=== PATIENT | female | born 1940 | race Caucasian/White ===

== ENCOUNTER 2016-11-29 19:56 | Inpatient (IN) ==
[2016-11-29] MEDS ORDERED: *HR* Morphine 2 MG/ML SYRINGE IVP STA (20:02)
--- NOTE | 2016-11-29 20:09 | Emergency Department Note ---
Disposition Clinical Impression: Hip fracture, left Qualifiers: Encounter type: initial encounter Fracture type: closed Qualified Code(s): S72.002A - Fracture of unspecified part of neck of left femur, initial encounter for closed fracture Fall Qualifiers: Encounter type: initial encounter Qualified Code(s): W19.XXXA - Unspecified fall, initial encounter Disposition: Admitted As Inpatient Condition: Fair Referrals: Lynn Garcia MD [Primary Care Provider] - Forms: ED Satisfaction Letter Time of Disposition: 22:45 Fall HPI - General Chief Complaint: ED Fall Stated Complaint: FALL Time Seen by Provider: 11/29/16 20:00 Source: patient Nursing Notes Reviewed: Yes Vital Signs Reviewed: Yes - History of Present Illness HPI Narrative: Mrs. Solis, 68-year-old female, presents from home via EMS after falling in her home. Patient tripped on her dog and fell, landing on her left side on tile floor. She experiences excruciating left hip pain was improved. She is most comfortable with her left leg crossed over her right. She was on the floor partially 45 minutes prior to EMS arrival. She was accompanied throughout the whole time with her daughter. Patient denies loss of consciousness, head trauma , neck pain, or pains anywhere else in her body. Patient is not on any anticoagulants or antiplatelet medications. PMH: Hypertension, hyperlipidemia. ROS: Positive: Left hip pain Negative: Fever, chills, chest pains, palpitations, dyspnea, diaphoresis, back pain, neck pain. - Related Data Allergies Allergy/AdvReac Type Severity Reaction Status Date / Time aspirin [ASA] AdvReac See Verified 08/01/15 10:41 Comments tramadol AdvReac See Verified 08/01/15 10:41 Comments All systems ED: reviewed and negative except as stated. Fall PMH - Past Medical History Medical history: Reports: arthritis, CHF, hyperlipidemia, hypertension Psychiatric history: Reports: anxiety, depression - Social History Smoking Status: Former smoker Alcohol use: Reports: none Drug use: Reports: none Physical Exam Vital Signs Reviewed General: Patient is alert, oriented, and in moderate distress from her left hip pain. HEENT: No facial asymmetry. Head is normocephalic and atraumatic. PERRLA, EOMI. oral mucosa moist. Trachea midline. Cardiovascular: Heart regular rate and rhythm without clicks, rubs, gallops, or murmurs. No JVD. PMI nondisplaced. Respiratory: Symmetric chest rise with good respiratory effort. Bilateral breath sounds are clear without wheezing, crackles, or rhonchi. Abdomen: Bowel sounds present normoactive x-4 quadrants. Abdomen is soft, nondistended, and nontender. No organomegaly noted. Musculoskeletal: No midline spinal tenderness. Tenderness over patient's left greater trochanter. Unable to discern if patient's left leg is shortened and or actually rotated she has her legs crossed at the ankle and refuses to uncross them secondary to pain. Neuro: GCS 15. Sensation light touch intact. Psych: Patient's affect is appropriate for situation. - General Limitations: no limitations General appearance: alert Course Course Narrative: Patient presents after mechanical fall with left hip pain. Cannot clinically discern left hip dislocation versus left hip fracture. Otherwise, patient is asymptomatic for other injuries on HPI and physical exam. X-ray left hip shows intertrochanteric fracture on my reading. Etiology read pending. Patient's pain is mildly controlled with 2 mg of morphine. We will repeat dose. 20:00 After 4 mg of morphine total, patient's pain is starting to return, will provide 50 g fentanyl. Spoke with on-call orthopedist, Dr. Pringle, who agrees to see the patient on consult with hospitalist admission. Hospitalist paged. Discussed the patient with the admitting hospitalist, Dr. Saeed, who has no additional questions or concerns at this time. Vital Signs Temperature 98.2 F 11/29/16 19:58 Pulse Rate 70 11/29/16 19:58 Respiratory Rate 16 11/29/16 19:58 Blood Pressure 160/98 11/29/16 19:58 O2 Sat by Pulse Oximetry 95 11/29/16 19:58 Temperature 98.2 F 11/29/16 19:58 Pulse Rate 67 11/29/16 20:17 Respiratory Rate 14 11/29/16 22:39 Blood Pressure 134/59 11/29/16 22:39 O2 Sat by Pulse Oximetry 96 11/29/16 20:17 Oxygen Delivery Oxygen Delivery Room Air Fall - Lab Data Result diagrams: 11/29/16 20:48 11/29/16 20:48 Lab Results 11/29/16 11/29/16 11/29/16 Range/Units 20:48 20:48 20:48 WBC 8.9 (4.3-11.1) K/mcL RBC 4.69 (3.82-4.97) M/mcL Hgb 13.1 (11.5-15.4) g/dL Hct 42.4 (35.3-44.9) % MCV 90.4 (83.0-100.0) fL MCH 27.9 L (28.0-33.3) pg MCHC 30.9 L (31.6-35.5) g/dL RDW 14.1 (11.5-14.5) % Plt Count 219 (140-400) K/mcL MPV 11.4 (9.4-12.4) fL Immature Gran % 1.0 (0-4) % Seg Neutrophils % 77.2 % Lymphocytes % 13.1 % Monocytes % 7.2 % Eosinophils % 1.2 % Basophils % 0.3 % Neutrophils # 6.9 (1.6-8.9) K/mcL Lymphocytes # 1.2 (0.6-4.6) K/mcL Monocytes # 0.6 (0.0-1.3) K/mcL Eosinophils # 0.1 (0.0-0.6) K/mcL Basophils # 0.0 (0.0-0.2) K/mcL PT 10.3 (9.4-12.1) Seconds INR 1.0 Sodium 138 (136-145) mEq/L Potassium 4.2 (3.5-4.5) mEq/L Chloride 104 (98-109) mEq/L Carbon Dioxide 24 (19-29) mEq/L BUN 19 (7-20) mg/dL Creatinine 1.14 H (0.57-1.11) mg/dL Est GFR ( Amer) 56 L (> 60) Est GFR (Non-Af Amer) 46 L (> 60) BUN/Creatinine Ratio 17 (6-26) Glucose 90 (70-99) mg/dL Calculated Osmolality 288 (280-300) Calcium 9.8 (8.6-10.8) mg/dL
--- NOTE | 2016-11-29 20:24 | Emergency Department Note ---
Disposition Clinical Impression: Hip fracture, left, Fall Disposition: Admitted As Inpatient Condition: Fair General Adult HPI - General Chief complaint: ED Fall Stated complaint: FALL Time Seen by Provider: 11/29/16 20:00 Source: patient Limitations: no limitations - History of Present Illness Pain Scale: 9 - Related Data Allergies Allergy/AdvReac Type Severity Reaction Status Date / Time aspirin [ASA] AdvReac See Verified 08/01/15 10:41 Comments tramadol AdvReac See Verified 08/01/15 10:41 Comments Past Medical History - Past Medical History Medical history: Reports: arthritis, CHF, hyperlipidemia, hypertension Psychiatric history: Reports: anxiety, depression - Social History Smoking Status: Former smoker Smokeless Tobacco Status: No Alcohol use: Reports: none Drug use: Reports: none Physical Exam - General Limitations: no limitations General appearance: alert Course - Reevaluation(s) Reevaluation #1: I saw the patient with resident, Dr. Hurley. Patient presents after a fall because the dog tripped her. She has pain to her left hip. She is lying on the bed with her left leg crossed over her right leg. She says that is her position of comfort. She has pain on axial loading of that left hip joint. My concern is that this could be a dislocation rather than a fracture. We will have to x-ray her. We will get her pain medicines. Disposition will be based on diagnostic results and reevaluation. Time: 20:23 Reevaluation #2: X-ray shows a fracture of the hip without dislocation. Patient will be admitted to the hospital. Time: 21:31 Vital Signs Temperature 98.2 F 11/29/16 19:58 Pulse Rate 70 11/29/16 19:58 Respiratory Rate 16 11/29/16 19:58 Blood Pressure 160/98 11/29/16 19:58 O2 Sat by Pulse Oximetry 95 11/29/16 19:58 Temperature 98.2 F 11/29/16 19:58 Pulse Rate 67 11/29/16 20:17 Respiratory Rate 14 11/29/16 22:39 Blood Pressure 134/59 11/29/16 22:39 O2 Sat by Pulse Oximetry 96 11/29/16 20:17 Oxygen Delivery Oxygen Delivery Room Air Medical Decision Making - Lab Data Result diagrams: 11/29/16 20:48 11/29/16 20:48 Lab Results 0911/29/16 11/29/16 Range/Units 20:48 20:48 20:48 WBC 8.9 (4.3-11.1) K/mcL RBC 4.69 (3.82-4.97) M/mcL Hgb 13.1 (11.5-15.4) g/dL Hct 42.4 (35.3-44.9) % MCV 90.4 (83.0-100.0) fL MCH 27.9 L (28.0-33.3) pg MCHC 30.9 L (31.6-35.5) g/dL RDW 14.1 (11.5-14.5) % Plt Count 219 (140-400) K/mcL MPV 11.4 (9.4-12.4) fL Immature Gran % 1.0 (0-4) % Seg Neutrophils % 77.2 % Lymphocytes % 13.1 % Monocytes % 7.2 % Eosinophils % 1.2 % Basophils % 0.3 % Neutrophils # 6.9 (1.6-8.9) K/mcL Lymphocytes # 1.2 (0.6-4.6) K/mcL Monocytes # 0.6 (0.0-1.3) K/mcL Eosinophils # 0.1 (0.0-0.6) K/mcL Basophils # 0.0 (0.0-0.2) K/mcL PT 10.3 (9.4-12.1) Seconds INR 1.0 Sodium 138 (136-145) mEq/L Potassium 4.2 (3.5-4.5) mEq/L Chloride 104 (98-109) mEq/L Carbon Dioxide 24 (19-29) mEq/L BUN 19 (7-20) mg/dL Creatinine 1.14 H (0.57-1.11) mg/dL Est GFR ( Amer) 56 L (> 60) Est GFR (Non-Af Amer) 46 L (> 60) BUN/Creatinine Ratio 17 (6-26) Glucose 90 (70-99) mg/dL Calculated Osmolality 288 (280-300) Calcium 9.8 (8.6-10.8) mg/dL Attestation Statement - Attestation Attestation: I, Dr. Pierre, examined this patient [id number] and my medical decision- making was reviewed with the Resident Physician, Dr. Nguyen. I agree with the documented findings, disposition and treatment plan as described except to the extent set forth below. Please see my progress notes for details.
[2016-11-29] MEDS ORDERED: *HR* Morphine 2 MG/ML SYRINGE IVP ONE (20:58)
[2016-11-29 21:03] LABS: Basophils % 0.3 %; Eosinophils # 0.1 K/mcL (0.0-0.6); Eosinophils % 1.2 %; Hematocrit 42.4 % (35.3-44.9); Hemoglobin 13.1 g/dL (11.5-15.4); Lymphocytes # 1.2 K/mcL (0.6-4.6); Lymphocytes % 13.1 %; Mean Corpuscular HGB Conc 30.9 g/dL (31.6-35.5); Mean Corpuscular Hemoglobin 27.9 pg (28.0-33.3); Mean Corpuscular Volume 90.4 fL (83.0-100.0); Mean Platelet Volume 11.4 fL (9.4-12.4); Monocytes # 0.6 K/mcL (0.0-1.3); Monocytes % 7.2 %; Neutrophils # 6.9 K/mcL (1.6-8.9); Platelet Count 219 K/mcL (140-400); Red Blood Count 4.69 M/mcL (3.82-4.97); Red Cell Distribution Width 14.1 % (11.5-14.5); Segmented Neutrophils % 77.2 %
[2016-11-29 21:07] LABS: Prothrombin Time 10.3 Seconds (9.4-12.1)
[2016-11-29 21:16] LABS: Calcium 9.8 mg/dL (8.6-10.8); Potassium 4.2 mEq/L (3.5-4.5)
[2016-11-29] MEDS ORDERED: *HR* FentaNYL (PF) 100 MCG/2 ML VIAL IVP ONE (21:55)
--- NOTE | 2016-11-29 22:28 | Internal Med History&Physical ---
Date of Encounter: 11/30/16 Time of Encounter: 22:25 Assessment and Plan (1) Fall Current visit: Yes Status: Acute Mechanical fall as she tripped over her dog. Neurological status is stable. Continue observation. Qualifiers: Encounter type: initial encounter Qualified Code(s): W19.XXXA - Unspecified fall, initial encounter (2) Closed left hip fracture Current visit: Yes Status: Acute Orthopedic is consulted by ER further care as per orthopedic surgery Qualifiers: Encounter type: initial encounter Qualified Code(s): S72.002A - Fracture of unspecified part of neck of left femur, initial encounter for closed fracture (3) Hypertension Current visit: Yes Status: Acute Resume home medication and daily monitoring Qualifiers: Hypertension type: essential hypertension Qualified Code(s): I10 - Essential (primary) hypertension (4) Dyslipidemia Current visit: Yes Status: Acute Resume home medication (5) Chronic kidney disease, stage III (moderate) Current visit: Yes Status: Acute Stage III kidney disease and creatinine is pretty much at her baseline (6) DVT prophylaxis Current visit: Yes Status: Acute DVT prophylaxis per orthopedic surgery. Patient will be on SCDs Internal Medicine - H&P: HPI Chief complaint: Fall Admitted From: Home Plans for Post Hospital Care: Transfer [facility] History of present illness: Mrs. Solis, 68-year-old female, presents from home via EMS after falling in her home. Patient tripped on her dog and fell, landing on her left side on tile floor. She experiences excruciating left hip pain was improved. She is most comfortable with her left leg crossed over her right. She was on the floor partially 45 minutes prior to EMS arrival. She was accompanied throughout the whole time with her daughter. Patient denies loss of consciousness, head trauma , neck pain, or pains anywhere else in her body. She seems to be doing pretty well and neurologically quite stable Past Med Surg Social Fam HX - Past Medical History Medical history: arthritis, CHF, hyperlipidemia, hypertension Psychiatric history: anxiety, depression - Social History Smoking Status: Former smoker Smokeless Tobacco Status: No Alcohol use: none Drug use: none Internal Medicine - H&P: Meds Alendronate Sodium [Fosamax] 70 mg PO QWEEK 11/30/16 [History] BuPROPion [Wellbutrin] 100 mg PO BID 11/30/16 [History] Buspirone HCl [Buspar] 7.5 mg PO DAILY 11/30/16 [History] Buspirone HCl [Buspar] 10 mg PO HS 11/30/16 [History] Furosemide [Lasix] 20 mg PO DAILY 11/30/16 [History] Gabapentin [Neurontin] 300 mg PO BID 11/30/16 [History] Lisinopril [Zestril] 40 mg PO DAILY 11/30/16 [History] Losartan Potassium [Cozaar] 100 mg PO DAILY 11/30/16 [History] Montelukast [Singulair] 10 mg PO HS 11/30/16 [History] PARoxetine HCl [Paroxetine HCl] 40 mg PO HS 11/30/16 [History] Simvastatin [Zocor] 20 mg PO HS 11/30/16 [History] amLODIPine [Norvasc] 5 mg PO DAILY 11/30/16 [History] 3 Allergy/AdvReac Type Severity Reaction Status Date / Time aspirin [ASA] AdvReac See Verified 08/01/15 10:41 Comments tramadol AdvReac See Verified 08/01/15 10:41 Comments All Systems PM: A 10-system review of systems was performed and is negative for pertinent findings except as documented above in the HPI. - Constitutional Constitutional: no chills, no fever(s), no night sweats - EENT Eyes: no change in vision, no discharge, no pain, no photophobia Ears: no ear discharge, no ear pain, no tinnitus Nose, mouth and throat: no dysphagia, no nasal discharge, no neck pain, no sore throat - Cardiovascular Cardiovascular ROS IM: no chest pain, no diaphoresis, no dyspnea, no lightheadedness, no palpitations, no syncope - Respiratory Respiratory: no cough, no dyspnea, no wheezing, no excessive phlegm production - Gastrointestinal Gastrointestinal: no abdominal pain, no diarrhea, no hematemesis, no hematochezia, no melena, no nausea, no vomiting - Genitourinary Genitourinary: no change in urinary stream, no dysuria, no flank pain, no hematuria - Musculoskeletal Musculoskeletal ROS IM: no numbness, no tingling - Integumentary Integumentary IM: no rash, no unusual bruising - Neurological Neurological ROS: no confusion, no convulsions, no focal weakness, no numbness, no tingling, no tremor(s) - Hematologic/Lymphatic Hematologic/Lymphatic: no easy bruising - Constitutional Vitals: Temp Pulse Resp BP Pulse Ox 98.2 F 67 18 144/88 96 11/29/16 19:58 11/29/16 20:17 11/29/16 20:17 11/29/16 20:17 11/29/16 20:17 General appearance: Present: A&O X 3, pleasant, no acute distress, answers questions appropriately - Head Head exam: Present: atraumatic, normocephalic - Eye Eye exam: Present: PERRL, conjuntiva pink, sclera anicteric Pupils: Present: PERRL - Neck Neck exam general surgery: Present: supple, trachea midline. Absent: lymphadenopathy - Respiratory Respiratory exam: Present: CTAB. Absent: accessory muscle use, rales, rhonchi, wheezes - Cardiovascular Cardiovascular exam: Present: RRR, +S1, +S2. Absent: diastolic murmur, gallop, rubs, systolic murmur - GI/Abdominal GI/Abdominal exam: Present: normal bowel sounds, soft, no peritoneal signs. Absent: distended, tenderness - Extremities Exam Extremities exam: Present: warm, radial pulses palpable and symmetrical. Absent : calf tenderness, cyanotic, pedal edema Additional comments: Left hip examination per orthopedics - Neurological Exam Neurological exam: Present: CN II-XII intact, oriented X3, no focal deficits. Absent: pronater drift, facial droop, speech deficit - Skin Skin exam: Present: dry, intact Internal Med - H&P Results - Labs CBC & Chem 7: 11/29/16 20:48 11/29/16 20:48
[2016-11-29] MEDS ORDERED: Acetaminophen 325 MG TABLET PO PRN (22:31)
[2016-11-29] MEDS ORDERED: Ondansetron 4 MG/2 ML VIAL IVP PRN (22:31)
[2016-11-29] MEDS ORDERED: MOM Conc 10 ML UD.LIQ PO PRN (22:31)
[2016-11-29] MEDS ORDERED: Naloxone 0.4 MG/ML INJ IVP PRN (22:31)
[2016-11-29] MEDS ORDERED: *HR* Morphine 2 MG/ML SYRINGE IVP PRN (22:31)
[2016-11-29] MEDS: 0.9 % Sodium Chloride 1,000 ML IVC SCH (23:56)
[2016-11-30] MEDS: *HR* HYDROmorphone (PF) 1 MG/ML SYRINGE IVP PRN ×5 (03:34→20:36)
[2016-11-30 07:12] LABS: Basophils % 0.3 %; Eosinophils # 0.1 K/mcL (0.0-0.6); Eosinophils % 0.9 %; Hematocrit 37.1 % (35.3-44.9); Immature Granulocytes % 0.4 % (0-4); Lymphocytes # 1.2 K/mcL (0.6-4.6); Lymphocytes % 10.2 %; Mean Corpuscular HGB Conc 30.7 g/dL (31.6-35.5); Mean Corpuscular Hemoglobin 28.1 pg (28.0-33.3); Mean Corpuscular Volume 91.6 fL (83.0-100.0); Mean Platelet Volume 11.8 fL (9.4-12.4); Monocytes # 0.9 K/mcL (0.0-1.3); Monocytes % 7.8 %; Platelet Count 189 K/mcL (140-400); Red Blood Count 4.05 M/mcL (3.82-4.97); Red Cell Distribution Width 14.1 % (11.5-14.5); Segmented Neutrophils % 80.4 %
[2016-11-30 07:16] LABS: BUN/Creatinine Ratio 20 (6-26); Blood Urea Nitrogen 19 mg/dL (7-20); Calcium 9.1 mg/dL (8.6-10.8); Carbon Dioxide 27 mEq/L (19-29); Chloride 105 mEq/L (98-109); Glucose 93 mg/dL (70-99); Osmolality,Calculated 292 (280-300); Potassium 4.2 mEq/L (3.5-4.5); Sodium 140 mEq/L (136-145); eGFR For African Americans > 60 (> 60); eGFR For Non-African Americans 56 (> 60)
[2016-11-30 08:00] LABS: Hemoglobin 11.4 g/dL (11.5-15.4)
--- NOTE | 2016-11-30 08:52 | Internal Med Progress Note ---
<Norberto El - Last Filed: 11/30/16 11:01> Date of Encounter: 11/30/16 Time of Encounter: 08:52 - Assessment and plan (1) Femur fracture, left Current Visit: Yes Status: Acute Assessment and plan: Patient sustained a fall onto left hip yesterday evening. Hip x-ray revealed acute traumatic closed intertrochanteric left proximal femur fracture, not significantly displaced. Exam reveals neuro and vascularly intact. Vitals reviewed and stable. Continue with pain medications: dilaudid 1mg q3h prn Orthopedic evaluation pending. Update, patient not getting surgery today, will start cardiac diet, npo after midnight. Qualifiers: Encounter type: initial encounter Femur location: intertrochanteric Fracture type: closed Fracture alignment: nondisplaced Qualified Code(s): S72.145A - Nondisplaced intertrochanteric fracture of left femur, initial encounter for closed fracture (2) Hypertension Current Visit: Yes Status: Acute Assessment and plan: Known history of hypertension. Bp 124/77, rate 63 Hold home medications for chronic disease management, was not on a beta milton at home. Continue monitoring vitals. Qualifiers: Hypertension type: essential hypertension Qualified Code(s): I10 - Essential (primary) hypertension (3) Dyslipidemia Current Visit: Yes Status: Acute Assessment and plan: Known history of hyperlipidemia. Hold home medications for chronic disease management. (4) Chronic kidney disease, stage III (moderate) Current Visit: Yes Status: Acute Assessment and plan: Known history of CKD stage III, Cr 0.96 on arrival. Continue monitoring labs. Continue IV fluids at 75mL/hr. (5) DVT prophylaxis Current Visit: Yes Status: Acute Assessment and plan: Continue IPCDs, Additional recommendations per Orthopedic Surgery. - Subjective Interval history: Ms. Solis is a 76 year old female who was admitted yesterday evening after sustaining a fall on her Left side after tripping over her dog. Patient was determined to have a Left proximal femur fracture on hip x-ray. Patient is doing okay this morning and appears in no acute distress. Patient reports pain does get up to a 10/10 at times, but pain medication has helped significantly. Patient has had surgeries by Dr. Atkinson in the past and is requesting Dr. Atkinson. Upon talking with nurses, they are following through to determine if this is feasible. Patient denies fevers, chills, sweats, nausea, vomiting, chest pain, shortness of breath, abdominal pain, changes in bowels or bladder, or loss of sensation. - Constitutional Vitals: Temp Pulse Resp BP Pulse Ox 97.6 F 63 16 124/77 96 11/30/16 06:48 11/30/16 06:48 11/30/16 06:48 11/30/16 06:48 11/30/16 06:48 General appearance: Present: cooperative, A&O X 3, pleasant, no acute distress, answers questions appropriately - Head Head exam: Present: atraumatic, normal inspection, normocephalic - Eye Eye exam: Present: EOMI, normal appearance - ENT ENT exam: Present: mucous membranes moist, normal exam - Neck Neck exam general surgery: Present: full ROM, normal inspection, supple, trachea midline. Absent: tenderness - Respiratory Respiratory exam: Present: CTAB. Absent: rales, rhonchi, wheezes - Cardiovascular Cardiovascular exam: Present: RRR, +S1, +S2. Absent: diastolic murmur, systolic murmur - GI/Abdominal GI/Abdominal exam: Present: normal bowel sounds, soft. Absent: distended, guarding, tenderness - Extremities Exam Extremities exam: Present: warm, radial pulses palpable and symmetrical. Absent : cyanotic Additional comments: Left lower extremity externally rotated and possibly shortened to right side, but patient unwilling to fully extended left knee. Pulses 2/4 bilaterally, normal sensation bilaterally. - Neurological Exam Neurological exam: Present: alert, oriented X3. Absent: facial droop, speech deficit - Psychiatric Psychiatric exam: Present: normal affect, normal mood - Skin Skin exam: Present: dry, intact, normal color, warm. Absent: rash Internal Medicine: Result - Labs CBC & Chem 7: 11/30/16 05:38 11/30/16 05:38 Labs: Short CBC 11/30/16 Range/Units 05:38 WBC 11.3 H (4.3-11.1) K/mcL Hgb 11.4 L D (11.5-15.4) g/dL Hct 37.1 (35.3-44.9) % Plt Count 189 (140-400) K/mcL Neutrophils # 9.0 H (1.6-8.9) K/mcL BMP 11/30/16 05:38 Sodium 140 Potassium 4.2 Chloride 105 Carbon Dioxide 27 BUN 19 Creatinine 0.96 Glucose 93 Calcium 9.1 - ABG Interpretation ABG results: PT/INR, D-dimer PT 10.3 Seconds (9.4-12.1) 11/29/16 20:48 Consult Discharge Plan - Plan Referrals: Lynn Garcia MD [Primary Care Provider] - <José Bose - Last Filed: 11/30/16 12:44> Date of Encounter: 11/30/16 - Constitutional Vitals: Temp Pulse Resp BP Pulse Ox 97.8 F 70 18 124/68 95 11/30/16 11:19 11/30/16 11:19 11/30/16 11:19 11/30/16 11:19 11/30/16 11:19 Internal Medicine: Result - Labs CBC & Chem 7: 11/30/16 05:38 11/30/16 05:38 Labs: Short CBC 11/30/16 Range/Units 05:38 WBC 11.3 H (4.3-11.1) K/mcL Hgb 11.4 L D (11.5-15.4) g/dL Hct 37.1 (35.3-44.9) % Plt Count 189 (140-400) K/mcL Neutrophils # 9.0 H (1.6-8.9) K/mcL BMP 11/30/16 05:38 Sodium 140 Potassium 4.2 Chloride 105 Carbon Dioxide 27 BUN 19 Creatinine 0.96 Glucose 93 Calcium 9.1 - ABG Interpretation ABG results: PT/INR, D-dimer PT 10.3 Seconds (9.4-12.1) 11/29/16 20:48 - Attending Attestation I have independently seen and examined this patient on 11/30/16, reviewed the EMR and discussed plan of care with the patient and resident physician 76 F with PMH of HTN, HLD, CHFpEF-euvolemic, CKD III admitted and being managed for Left proximal intertrochanteric fracture following a mechanical fall Aside from pain, she had no complains Physical Exam: VSS, not in distress, speaks full sentences, HEENT: Moist oral mucosa, not cyanotic. Chest: CTAB, no added sounds, Heart S1, S2 no m/g/r, Abdomen is soft and not tender. LLE shorter and externally rotated Labs and Imaging reviewed: CBC WNL, Chem-Cr at baseline, Hip Xary confirms fracture. ECHO 2014-Mild LVDD, Nuclear stress test 05/2016: No ischemia Plan: Continue pain control, resume hold meds, hold ACEI/ARB/Diuretics, continue management of fracture per ortho Rest of details as in resident physician's documentation
--- NOTE | 2016-11-30 11:49 | Orthopedic Consult Note ---
Date of Encounter: 11/30/16 Time of Encounter: 11:47 Assessment and Plan (1) Closed left hip fracture Current Visit: Yes Status: Acute Plan for Left Hip Open reduction and intramedullary nailing 12/01/16. Plan discussed and reviewed with . Consent reviewed with patient, signed. NPO after midnight. NWB, bed rest. Ruiz catheter in place. Continue with EPCD use, DVT prophylaxis. Cleared for surgery. Qualifiers: Encounter type: initial encounter Qualified Code(s): S72.002A - Fracture of unspecified part of neck of left femur, initial encounter for closed fracture (2) Fall Current Visit: Yes Status: Acute Qualifiers: Encounter type: initial encounter Qualified Code(s): W19.XXXA - Unspecified fall, initial encounter (3) Hypertension Current Visit: Yes Status: Acute Qualifiers: Hypertension type: essential hypertension Qualified Code(s): I10 - Essential (primary) hypertension (4) Dyslipidemia Current Visit: Yes Status: Acute (5) Chronic kidney disease, stage III (moderate) Current Visit: Yes Status: Acute History of Present Illness Chief complaint: Fall HPI: Ms. Solis is a 76 year old female presents from home 11/29/16 via EMS after falling in her home. Patient tripped on her dog and fell, landing on her left side on tile floor. She experiences excruciating left hip pain. Difficulty with pain control, on Dilaudid. In bed currently. Pain is in Left hip, denies N/T or radiation of pain into lower leg. Unable to ambulate secondary to pain. She has was ambulatory prior to fall. Ruiz catheter in place. Denies history of trauma or injury prior to fall. FINDINGS: Acute traumatic closed intertrochanteric left proximal femur fracture is present. The fracture not significantly displaced. The hip joints are maintained. Postoperative changes in the lumbar spine. The pelvis is grossly intact. XR/XR hip complete LT IMPRESSION: Intertrochanteric left proximal femur fracture. Patient denies loss of consciousness, head trauma, neck pain, or pains anywhere else in her body. Past Med Surg Social Fam HX - Past Medical History Medical history: arthritis, CHF, hyperlipidemia, hypertension Psychiatric history: anxiety, depression - Past Surgical History Surgical History: knee replacement, orthopedic, other - Social History Smoking Status: Former smoker Smokeless Tobacco Status: No Alcohol use: none Drug use: none Medications and Allergies Alendronate Sodium [Fosamax] 70 mg PO QWEEK 11/30/16 [History] BuPROPion SR (12 HR) [Wellbutrin SR] 150 mg PO BID 11/30/16 [History] Buspirone HCl [Buspar] 7.5 mg PO DAILY 11/30/16 [History] Buspirone HCl [Buspar] 10 mg PO HS 11/30/16 [History] Furosemide [Lasix] 20 mg PO DAILY 11/30/16 [History] Gabapentin [Neurontin] 300 mg PO BID 11/30/16 [History] HYDROcodone/Acet 5/325 mg [[place] 5-325 mg] 1 tab PO Q6H PRN 11/30/16 [History] Lisinopril [Zestril] 40 mg PO DAILY 11/30/16 [History] Losartan Potassium [Cozaar] 100 mg PO DAILY 11/30/16 [History] Montelukast [Singulair] 10 mg PO HS 11/30/16 [History] PARoxetine HCl [Paroxetine HCl] 40 mg PO HS 11/30/16 [History] Simvastatin [Zocor] 20 mg PO HS 11/30/16 [History] amLODIPine [Norvasc] 5 mg PO DAILY 11/30/16 [History] 3 Allergy/AdvReac Type Severity Reaction Status Date / Time aspirin [ASA] AdvReac See Verified 08/01/15 10:41 Comments tramadol AdvReac See Verified 08/01/15 10:41 Comments All Systems Reviewed: A 10-system review of systems was performed and is negative for pertinent findings except as documented above in the HPI. - Constitutional Constitutional: as per HPI - Cardiovascular Cardiovascular: as per HPI - Respiratory Respiratory: as per HPI - Musculoskeletal Musculoskeletal: as per HPI Physical Exam - Constitutional Vitals: Temp Pulse Resp BP Pulse Ox 97.8 F 70 18 124/68 95 11/30/16 11:19 11/30/16 11:19 11/30/16 11:19 11/30/16 11:19 11/30/16 11:19 - Fracture left hip Appearance: swelling, other (shortened and ER LLE) Compartments: soft Distal extremity neurovascularly intact: Yes Proximal joint involvement: No Distal joint involvement: No Results - Labs Result Diagrams: 11/30/16 05:38 11/30/16 05:38 Labs: Abnormal lab results WBC 11.3 K/mcL (4.3-11.1) H 11/30/16 05:38 Hgb 11.4 g/dL (11.5-15.4) L D 11/30/16 05:38 MCHC 30.7 g/dL (31.6-35.5) L 11/30/16 05:38 Neutrophils # 9.0 K/mcL (1.6-8.9) H 11/30/16 05:38 Est GFR (Non-Af Amer) 56 (> 60) L 11/30/16 05:38 H & H 11/30/16 Range/Units 05:38 Hgb 11.4 L D (11.5-15.4) g/dL Hct 37.1 (35.3-44.9) % All other labs normal. - Diagnostic results Hip x-ray: report reviewed, image reviewed Consult Discharge Plan - Plan Referrals: Lynn Garcia MD [Primary Care Provider] -
[2016-11-30] MEDS: 0.9 % Sodium Chloride 1,000 ML IVC SCH (13:44)
--- NOTE | 2016-11-30 19:21 | Anesthesia Evaluation PreOp ---
Date of Encounter: 11/30/16 Time of Encounter: 19:05 - Past History Planned Operation: Left Hip ORIF IM Nailing Cardiac History: HTN, Hyperlipidemia Pulmonary History: Denies Any Significant HX MEDICAL OPERATIONS SUPERVISOR History: Denies Any Significant HX Other Medical History: Renal (CKD), Other (Anxiety Depression) Anesthesia History: No Prior Anesthetic Complications : No Alcohol Use: none Drug use: none Medications and Allergies Alendronate Sodium [Fosamax] 70 mg PO QWEEK 11/30/16 [History] BuPROPion SR (12 HR) [Wellbutrin SR] 150 mg PO BID 11/30/16 [History] Buspirone HCl [Buspar] 7.5 mg PO DAILY 11/30/16 [History] Buspirone HCl [Buspar] 10 mg PO HS 11/30/16 [History] Furosemide [Lasix] 20 mg PO DAILY 11/30/16 [History] Gabapentin [Neurontin] 300 mg PO BID 11/30/16 [History] HYDROcodone/Acet 5/325 mg [[place] 5-325 mg] 1 tab PO Q6H PRN 11/30/16 [History] Lisinopril [Zestril] 40 mg PO DAILY 11/30/16 [History] Losartan Potassium [Cozaar] 100 mg PO DAILY 11/30/16 [History] Montelukast [Singulair] 10 mg PO HS 11/30/16 [History] PARoxetine HCl [Paroxetine HCl] 40 mg PO HS 11/30/16 [History] Simvastatin [Zocor] 20 mg PO HS 11/30/16 [History] amLODIPine [Norvasc] 5 mg PO DAILY 11/30/16 [History] 3 Allergy/AdvReac Type Severity Reaction Status Date / Time aspirin [ASA] AdvReac See Verified 08/01/15 10:41 Comments tramadol AdvReac See Verified 08/01/15 10:41 Comments - Meds/Allergy Pre-op Review Medications Reviewed: Yes Allergies Reviewed: Yes Beta Blockers on Current Med List: No Anesthesia Results - Labs 11/30/16 05:38 11/30/16 05:38 Laboratory Tests 07/11/14 11/29/16 11/30/16 15:56 20:48 05:38 Hgb 11.4 L D Hct 37.1 Plt Count 189 PT 10.3 PTT 31.5 INR 1.0 Sodium Potassium BUN Creatinine 11/30/16 05:38 Hgb Hct Plt Count PT PTT INR Sodium 140 Potassium 4.2 BUN 19 Creatinine 0.96 - Imaging EKG: report reviewed (SR) Additional studies: ECHO 2014 LVEF 60%, Stress Test 2017 Negative for Ischemia EF>70% Anesthesia Exam O2 Sat Height 1.52 m Weight 72.5 kg Weight 69.853 kg O2 Sat by Pulse Oximetry 94 O2 Sat by Pulse Oximetry 95 O2 Sat by Pulse Oximetry 96 O2 Sat by Pulse Oximetry 97 O2 Sat by Pulse Oximetry 94 O2 Sat by Pulse Oximetry 96 O2 Sat by Pulse Oximetry 95 Vital Signs Temp Pulse Resp BP Pulse Ox 98.2 F 70 16 160/98 95 11/29/16 19:58 11/29/16 19:58 11/29/16 19:58 11/29/16 19:58 11/29/16 19:58 Height: 5'0 Weight: 159 lbs NPO (# of Hours): MN Pain Scale: 0 - HEENT Pupil (Motor): Pupils equal, EOMI Mallampati: III Denture Type: Upper: Complete Oral Opening: Less than or equal to 3 - MEDICAL OPERATIONS SUPERVISOR LOC: Oriented MEDICAL OPERATIONS SUPERVISOR Motor: Normal RUE, Normal LUE, Normal RLE, Normal LLE, Normal Face MEDICAL OPERATIONS SUPERVISOR Sensory: Normal: RUE, LUE, RLE, LLE, Face - Cardiac Rhythm: Regular Murmur: None JVD: No Carotid Bruit: No - Pulmonary Breath Sounds: bilateral Clear Respiratory Effort: Symmetrical Anesthesia Assess/Plan ASA Score: 3 (HTN CKD) Modified Allie Scale for Level of Consciousness: Cooperative, oriented, and tranquil Anesthetic Plan: General Monitoring Plan: Standard Monitors Recovery Plan: PACU (Discussed GA versus RA, patient wants GA, agrees to proceed )
[2016-11-30] MEDS ORDERED: Acetaminophen 325 MG TABLET PO ONE (19:44)
[2016-11-30] MEDS: Gabapentin 300 MG CAPSULE PO SCH (19:54)
[2016-11-30] MEDS: BuPROPion SR (12 HR) 150 MG TABLET PO SCH (19:54)
[2016-12-01] MEDS: *HR* HYDROmorphone (PF) 1 MG/ML SYRINGE IVP PRN ×4 (01:11→11:44)
[2016-12-01] MEDS: 0.9 % Sodium Chloride 1,000 ML IVC SCH (01:18)
[2016-12-01 05:46] LABS: Prothrombin Time 11.2 Seconds (9.4-12.1)
[2016-12-01 05:48] LABS: Basophils % 0.3 %; Eosinophils # 0.3 K/mcL (0.0-0.6); Eosinophils % 3.2 %; Hematocrit 37.2 % (35.3-44.9); Hemoglobin 11.4 g/dL (11.5-15.4); Immature Granulocytes % 0.2 % (0-4); Lymphocytes % 11.6 %; Mean Corpuscular HGB Conc 30.6 g/dL (31.6-35.5); Mean Corpuscular Hemoglobin 28.6 pg (28.0-33.3); Mean Corpuscular Volume 93.2 fL (83.0-100.0); Mean Platelet Volume 11.3 fL (9.4-12.4); Monocytes # 0.9 K/mcL (0.0-1.3); Monocytes % 10.4 %; Neutrophils # 6.5 K/mcL (1.6-8.9); Platelet Count 145 K/mcL (140-400); Red Blood Count 3.99 M/mcL (3.82-4.97); Red Cell Distribution Width 13.9 % (11.5-14.5); Segmented Neutrophils % 74.3 %
[2016-12-01 05:49] LABS: Activated Partial Thrombo Time 28.5 Seconds (26.0-36.0)
[2016-12-01 05:57] LABS: BUN/Creatinine Ratio 15 (6-26); Blood Urea Nitrogen 13 mg/dL (7-20); Calcium 9.1 mg/dL (8.6-10.8); Carbon Dioxide 27 mEq/L (19-29); Chloride 105 mEq/L (98-109); Glucose 101 mg/dL (70-99); Osmolality,Calculated 284 (280-300); Potassium 3.8 mEq/L (3.5-4.5); Sodium 137 mEq/L (136-145); eGFR For African Americans > 60 (> 60); eGFR For Non-African Americans > 60 (> 60)
[2016-12-01] MEDS: Gabapentin 300 MG CAPSULE PO SCH ×2 (08:41→20:59)
[2016-12-01] MEDS: BuPROPion SR (12 HR) 150 MG TABLET PO SCH ×2 (08:41→20:59)
[2016-12-01] MEDS ORDERED: amLODIPine 5 MG TABLET PO SCH (09:00)
--- NOTE | 2016-12-01 09:03 | Internal Med Progress Note ---
<Norberto El - Last Filed: 12/01/16 12:17> Date of Encounter: 12/01/16 Time of Encounter: 09:02 - Assessment and plan (1) Femur fracture, left Current Visit: Yes Status: Acute Assessment and plan: Patient sustained a fall onto left hip Tuesday evening. Hip x-ray revealed acute traumatic closed intertrochanteric left proximal femur fracture, not significantly displaced. Exam reveals neuro and vascularly intact. Vitals reviewed and stable. Continue with pain medications: dilaudid 1mg q3h prn Plan for surgery today. Qualifiers: Encounter type: initial encounter Femur location: intertrochanteric Fracture type: closed Fracture alignment: nondisplaced Qualified Code(s): S72.145A - Nondisplaced intertrochanteric fracture of left femur, initial encounter for closed fracture (2) Hypertension Current Visit: Yes Status: Acute Assessment and plan: Known history of hypertension. Bp 146/76, rate 87 Hold home medications for chronic disease management, was not on a beta milton at home. Continue monitoring vitals. Qualifiers: Hypertension type: essential hypertension Qualified Code(s): I10 - Essential (primary) hypertension (3) Dyslipidemia Current Visit: Yes Status: Acute Assessment and plan: Known history of hyperlipidemia. Hold home medications for chronic disease management. (4) Chronic kidney disease, stage III (moderate) Current Visit: Yes Status: Acute Assessment and plan: Known history of CKD stage III, Cr 0.87. Continue monitoring labs. Continue IV fluids at 75mL/hr. (5) DVT prophylaxis Current Visit: Yes Status: Acute Assessment and plan: Continue IPCDs, Additional recommendations per Orthopedic Surgery. - Subjective Interval history: Patient reports doing well overnight, she appears comfortable in bed; however, currently reports pain of 9/10 just before pain medication administration. Denies fevers, chills, sweats, nausea, vomiting, dysphagia, changes in appetite , chest pain, shortness of breath, abdominal pain, changes in bladder, dysuria, or loss of sensation. Patient does report no bowel movement since admissions. Plan for surgery with Dr. Atkinson later today. - Constitutional Vitals: Temp Pulse Resp BP Pulse Ox 98.9 F 87 17 146/76 95 12/01/16 06:45 12/01/16 06:45 12/01/16 06:45 12/01/16 06:45 12/01/16 06:45 General appearance: Present: cooperative, A&O X 3, pleasant, no acute distress, answers questions appropriately - Head Head exam: Present: atraumatic, normal inspection, normocephalic - Eye Eye exam: Present: EOMI, normal appearance - ENT ENT exam: Present: mucous membranes moist, normal exam, normal oropharynx - Neck Neck exam general surgery: Present: full ROM, normal inspection, supple, trachea midline. Absent: tenderness - Respiratory Respiratory exam: Present: CTAB. Absent: rales, rhonchi, wheezes - Cardiovascular Cardiovascular exam: Present: RRR, +S1, +S2. Absent: diastolic murmur, JVD, systolic murmur - GI/Abdominal GI/Abdominal exam: Present: normal bowel sounds, soft. Absent: distended, guarding, tenderness - Additional comments: rodrigues in place, clear yellow urine. - Extremities Exam Extremities exam: Present: warm, radial pulses palpable and symmetrical. Absent : pedal edema Additional comments: Left lower extremity externally rotated and mildly shortened compared to right, normal sensation bilaterally, pulses 2/4 bilaterally, moves toes bilaterally when prompted. - Neurological Exam Neurological exam: Present: alert, oriented X3. Absent: facial droop, speech deficit - Psychiatric Psychiatric exam: Present: normal affect, normal mood - Skin Skin exam: Present: dry, intact, normal color, warm. Absent: rash Internal Medicine: Result - Labs CBC & Chem 7: 12/01/16 05:29 12/01/16 05:29 Labs: Short CBC 12/01/16 Range/Units 05:29 WBC 8.7 (4.3-11.1) K/mcL Hgb 11.4 L (11.5-15.4) g/dL Hct 37.2 (35.3-44.9) % Plt Count 145 (140-400) K/mcL Neutrophils # 6.5 (1.6-8.9) K/mcL BMP 12/01/16 05:29 Sodium 137 Potassium 3.8 Chloride 105 Carbon Dioxide 27 BUN 13 Creatinine 0.87 Glucose 101 H Calcium 9.1 - ABG Interpretation ABG results: PT/INR, D-dimer PT 11.2 Seconds (9.4-12.1) 12/01/16 05:29 - VTE Documentation of Mechanical Device: Intermittent pneumatic compression device Consult Discharge Plan - Plan Referrals: Lynn Garcia MD [Primary Care Provider] - <José Bose - Last Filed: 12/01/16 13:33> Date of Encounter: 12/01/16 - Constitutional Vitals: Temp Pulse Resp BP Pulse Ox 99.5 F 86 15 129/70 94 12/01/16 10:28 12/01/16 10:28 12/01/16 10:28 12/01/16 10:28 12/01/16 10:28 Internal Medicine: Result - Labs CBC & Chem 7: 12/01/16 05:29 12/01/16 05:29 Labs: Short CBC 12/01/16 Range/Units 05:29 WBC 8.7 (4.3-11.1) K/mcL Hgb 11.4 L (11.5-15.4) g/dL Hct 37.2 (35.3-44.9) % Plt Count 145 (140-400) K/mcL Neutrophils # 6.5 (1.6-8.9) K/mcL BMP 12/01/16 05:29 Sodium 137 Potassium 3.8 Chloride 105 Carbon Dioxide 27 BUN 13 Creatinine 0.87 Glucose 101 H Calcium 9.1 - ABG Interpretation ABG results: PT/INR, D-dimer PT 11.2 Seconds (9.4-12.1) 12/01/16 05:29 - Attending Attestation I have independently seen and examined this patient on 12/01/16, reviewed the EMR and discussed plan of care with the patient and resident physician 76 F with PMH of HTN, HLD, CHFpEF-euvolemic, CKD III admitted and being managed for Left proximal intertrochanteric fracture following a mechanical fall Aside from pain, she had no complains Awaiting surgery today Physical Exam: VSS, not in distress, speaks full sentences, HEENT: Moist oral mucosa, not cyanotic. Chest: CTAB, no added sounds, Heart S1, S2 no m/g/r, Abdomen is soft and not tender. LLE shorter and externally rotated Labs and Imaging reviewed: CBC WNL, Chem-Cr at baseline, Hip Xary confirms fracture. ECHO 2014-Mild LVDD, Nuclear stress test 05/2016: No ischemia Plan: Continue pain control, resume hold meds, hold ACEI/ARB/Diuretics, continue management of fracture per ortho Resume diuretics/ACEIa.m Rpt Hb a.m Rest of details as in resident physician's documentation
[2016-12-01] MEDS ORDERED: *HR* Propofol 200 MG/20 ML VIAL IVP ONE (12:41)
[2016-12-01] MEDS ORDERED: Dexamethasone 4 MG/ML VIAL ONE (12:41)
[2016-12-01] MEDS ORDERED: *HR* Rocuronium Bromide 50 MG/5 ML VIAL ONE (12:41)
[2016-12-01] MEDS ORDERED: *HR* Succinylcholine 200 MG/10 ML VIAL IVP ONE (12:41)
[2016-12-01] MEDS ORDERED: Ondansetron 4 MG/2 ML VIAL ONE (12:41)
[2016-12-01] MEDS ORDERED: *HR* FentaNYL (PF) 100 MCG/2 ML VIAL ONE (12:41)
[2016-12-01] MEDS ORDERED: Lidocaine -MPF 2% 2 ML VIAL ONE (12:41)
[2016-12-01] MEDS ORDERED: ceFAZolin 2,000 MG in D5% in Water 100 ML IVPB ONE (13:45)
[2016-12-01] MEDS ORDERED: *HR* HYDROmorphone 2 MG/ML SYRINGE ONE (14:15)
--- NOTE | 2016-12-01 14:21 | Orthopedic Operative Note ---
Date of procedure: 12/01/16 Pre-op diagnosis: Left hip fracture intertrochanteric Post-op diagnosis: same Procedure: Procedure: Left hip open reduction intramedullary nail fixation Estimated blood loss: 50 cc Hardware: Metal: 10 mm diameter 130 degree Synthes TFN, helical blade 100, 36 distal locking bolt Operative procedure: The patient was brought to the operating room and placed on the operating room table. After general anesthesia was administered the well leg was place in the well leg mcdonald and the operative leg was placed in the fracture leg mcdonald. All pressure points were padded appropriately. The operative extremity was prepped and draped in the sterile surgical fashion patient received IV antibiotic prior to skin incision. A standard direct lateral approach was made over the entry point of the greater trochanter, the incision was made through the skin and subcutaneous tissue hemostasis was obtained with Bovie cautery. Using careful sharp dissection the fascia was identified and incised, flouroscopic assistance was used to identify the entry point. The guidepin was placed at the entry point using fluroscopic assistance, it was over reamed with the proximal reamer. The nail was placed through the entry hole, across the fracture site into the distal fragment. the position was confirmed with fluroscopy. A guide pin was placed through the proximal locking guide from the lateral femur through the nail across the fracture site into the femoral head, it was over reamed with the reamer. The 100 mm helical blade was placed over the guide pin through the nail into the femoral head, locked in place with the proximal locking bolt. Distal locking bolt was placed through the distal locking guide. The position of hardware and fracture reduction found to be acceptable with fluroscopic assistance. The wound was irrigated. Fascia was closed with a running #2 PDS suture. The deep tissue was irrigated and closed deep with #1 PDS suture superficially with 0 PDS suture and skin was closed with skin coby. The patient was placed in a sterile dressing The patient was extubated and transferred to the recovery room in stable condition. Anesthesia: GETA Surgeon: Shaji Atkinson Condition: stable Disposition: PACU
[2016-12-01] MEDS ORDERED: *HR* HYDROmorphone (PF) 1 MG/ML SYRINGE IVP PRN ×2 (14:29→15:39)
[2016-12-01] MEDS ORDERED: *HR* Promethazine 25 MG/ML VIAL IVP PRN (14:29)
--- NOTE | 2016-12-01 14:38 | Electrocardiograph Report ---
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
--- NOTE | 2016-12-01 14:53 | Anesthesia Evaluation Post Op ---
Date of Encounter: 12/01/16 Time of Encounter: 15:00 - Vital Signs Vital Signs: VSS 147/86/ 78/ Sat 94 on 4L face mask - Airway Airway: Non-obstructed - Cardiovascular Regular Rate - Mental Status Mental Status: Sedated - Nausea Vomiting Nausea Vomiting: Not Present - Hydration Hydration: NPO - Discharge PostOp Status: Transfer Patient to floor (Will be sent to floor once discharge criteria met in approx. 15 min.)
[2016-12-01 15:15] LABS: Hematocrit 38.6 % (35.3-44.9); Hemoglobin 11.4 g/dL (11.5-15.4)
[2016-12-01] MEDS ORDERED: MOM Conc 10 ML UD.LIQ PO PRN (15:39)
[2016-12-01] MEDS ORDERED: Naloxone 0.4 MG/ML INJ IVP PRN (15:39)
[2016-12-01] MEDS ORDERED: Ondansetron 4 MG/2 ML VIAL IVP PRN (15:39)
[2016-12-01] MEDS ORDERED: 0.9 % Sodium Chloride 1,000 ML IVC SCH (15:39)
[2016-12-01] MEDS ORDERED: *HR* OxyCODONE Immed Rel 5 MG TABLET PO PRN (15:39)
[2016-12-01] MEDS ORDERED: Acetaminophen 325 MG TABLET PO PRN (15:39)
[2016-12-01] MEDS: *HR* OxyCODONE Immed Rel 5 MG TABLET PO PRN (19:44)
[2016-12-01] MEDS: ceFAZolin 2,000 MG in D5% in Water 100 ML IVPB SCH (21:04)
[2016-12-01] MEDS ORDERED: Melatonin 3 MG TABLET PO PRN (22:37)
[2016-12-02] MEDS: *HR* OxyCODONE Immed Rel 5 MG TABLET PO PRN ×4 (02:45→20:48)
[2016-12-02] MEDS: ceFAZolin 2,000 MG in D5% in Water 100 ML IVPB SCH (05:18)
[2016-12-02] MEDS: *HR* Enoxaparin 30 MG/0.3 ML SYRINGE SQ SCH (05:18)
--- NOTE | 2016-12-02 06:52 | Orthopedics Progress Note ---
Date of Encounter: 12/02/16 Time of Encounter: 06:52 Subjective Interval history: Patient was seen this morning doing well without complaints. Afebrile vital signs stable. Operative extremity: Neurovascularly intact Dressing clean dry and intact Calves nontender Assessment and plan: Continue with postoperative care Objective Vital signs: Vital Signs Temp Pulse Resp BP Pulse Ox 12/02/16 04:59 97.9 F 86 18 136/74 95 12/02/16 00:55 98.6 F 84 18 130/75 96 12/01/16 19:50 98.3 F 87 16 155/72 97 12/01/16 18:50 98.1 F 84 16 143/80 94 12/01/16 17:50 98.2 F 89 15 143/83 95 12/01/16 16:50 98.1 F 94 14 116/76 93 12/01/16 16:15 98.4 F 94 14 148/80 90 12/01/16 15:55 92 12/01/16 15:39 99.1 F 94 14 154/88 92 12/01/16 15:26 98.9 F 90 14 159/85 93 12/01/16 15:16 98.9 F 90 13 154/82 94 12/01/16 15:06 91 14 157/80 94 12/01/16 14:56 90 13 171/80 95 12/01/16 14:46 98.7 F 86 16 167/86 98 12/01/16 10:28 99.5 F 86 15 129/70 94 Intake and Output 12/01/16 12/01/16 12/02/16 15:59 23:59 07:59 Intake Total 100 / 100 Output Total 515 / 515 950 / 950 Balance -515 / -515 100 / 100 -950 / -950 Intake: IV Fluids 100 / 100 Ancef 2,000 MG In 100 / 100 Dextrose 5% 100 ML @ 200 mls/hr IVPB Q8H [facility] Rx#: [id number] Output: Urine 150 / 150 Estimated Blood Loss 50 / 50 Urine Amount (Catheter) 140 / 140 Catheter 175 / 175 950 / 950 Other: Meal NPO for breakfast - Labs CBC & BMP: 12/01/16 15:07 12/01/16 05:29 Labs: Abnormal lab results Hgb 11.4 g/dL (11.5-15.4) L 12/01/16 15:07 MCHC 30.6 g/dL (31.6-35.5) L 12/01/16 05:29 Glucose 101 mg/dL (70-99) H 12/01/16 05:29 - VTE Documentation of Mechanical Device: Venous foot pump, device Consult Discharge Plan - Plan Referrals: Lynn Garcia MD [Primary Care Provider] -
[2016-12-02] MEDS: BuPROPion SR (12 HR) 150 MG TABLET PO SCH ×2 (08:25→20:48)
[2016-12-02] MEDS: amLODIPine 5 MG TABLET PO SCH (08:26)
[2016-12-02] MEDS: Gabapentin 300 MG CAPSULE PO SCH ×2 (08:26→20:49)
--- NOTE | 2016-12-02 09:03 | Internal Med Progress Note ---
<Norberto El - Last Filed: 12/02/16 11:24> Date of Encounter: 12/02/16 Time of Encounter: 09:03 - Assessment and plan (1) Femur fracture, left Current Visit: Yes Status: Acute Assessment and plan: Patient sustained a fall onto left hip Tuesday evening. Hip x-ray revealed acute traumatic closed intertrochanteric left proximal femur fracture, not significantly displaced. Exam reveals neuro and vascularly intact. Vitals reviewed and stable. POD#1 Left hip open reduction intramedulary internal fixation Continue with pain medications prn Awaiting placement, social work on board. Qualifiers: Encounter type: initial encounter Femur location: intertrochanteric Fracture type: closed Fracture alignment: nondisplaced Qualified Code(s): S72.145A - Nondisplaced intertrochanteric fracture of left femur, initial encounter for closed fracture (2) Hypertension Current Visit: Yes Status: Acute Assessment and plan: Known history of hypertension. Bp 163/84, rate 81 Resume home meds Continue monitoring vitals. Qualifiers: Hypertension type: essential hypertension Qualified Code(s): I10 - Essential (primary) hypertension (3) Dyslipidemia Current Visit: Yes Status: Acute Assessment and plan: Known history of hyperlipidemia. Resume home meds (4) Chronic kidney disease, stage III (moderate) Current Visit: Yes Status: Acute Assessment and plan: Known history of CKD stage III, Cr 0.87 Continue monitoring labs. Stopped IV fluids (5) DVT prophylaxis Current Visit: Yes Status: Acute Assessment and plan: Continue IPCDs, Additional recommendations per Orthopedic Surgery. - Subjective Interval history: Patient reports doing well overnight after surgery, reports pain is well controlled. Denies fevers, chills, sweats, nausea, vomiting, dysphagia, changes in appetite, chest pain, shortness of breath, abdominal pain, changes in bladder, dysuria, or loss of sensation. Patient does report no bowel movement since admissions. Currently awaiting placement. - Constitutional Vitals: Temp Pulse Resp BP Pulse Ox 98.4 F 81 18 163/84 94 12/02/16 08:46 12/02/16 08:46 12/02/16 08:46 12/02/16 08:46 12/02/16 08:46 General appearance: Present: cooperative, A&O X 3, pleasant, no acute distress, answers questions appropriately - Head Head exam: Present: atraumatic, normal inspection, normocephalic - Eye Eye exam: Present: EOMI, normal appearance - ENT ENT exam: Present: mucous membranes moist, normal exam, normal oropharynx - Neck Neck exam general surgery: Present: full ROM, normal inspection, supple, trachea midline. Absent: tenderness - Respiratory Respiratory exam: Present: CTAB. Absent: rales, rhonchi, wheezes - Cardiovascular Cardiovascular exam: Present: RRR, +S1, +S2. Absent: diastolic murmur, JVD, systolic murmur - GI/Abdominal GI/Abdominal exam: Present: normal bowel sounds, soft. Absent: distended, guarding, tenderness - Extremities Exam Extremities exam: Present: full ROM (except left hip, patient is ambulating with assistance), normal inspection, tenderness (left hip), warm, radial pulses palpable and symmetrical. Absent: pedal edema - Neurological Exam Neurological exam: Present: alert, CN II-XII intact, oriented X3, no focal deficits. Absent: motor sensory deficit, facial droop, speech deficit - Psychiatric Psychiatric exam: Present: normal affect, normal mood - Skin Skin exam: Present: dry, intact, normal color, warm. Absent: rash Internal Medicine: Result - Labs CBC & Chem 7: 12/01/16 15:07 12/01/16 05:29 Labs: Short CBC 12/01/16 Range/Units 15:07 Hgb 11.4 L (11.5-15.4) g/dL Hct 38.6 (35.3-44.9) % - ABG Interpretation ABG results: PT/INR, D-dimer PT 11.2 Seconds (9.4-12.1) 12/01/16 05:29 - Impressions Impressions Hip X-Ray 12/01/16 13:48 IMPRESSION: Baseline study, status post ORIF of intertrochanteric fracture of the left hip D/ / 12/01/2016 15:30:33 Dougie Vazquez MD / [facility] Interpreting Provider: Dougie Vazquez MD Fluoroscopy 12/01/16 13:56 IMPRESSION: Intraprocedural fluoroscopic spot images as above. See separate procedure report for more information. D/ / 12/01/2016 14:53:15 Sujit Hidalgo MD / [facility] Interpreting Provider: Sujit Hidalgo MD Hip X-Ray 12/01/16 13:56 IMPRESSION: Intraprocedural fluoroscopic spot images as above. See separate procedure report for more information. D/ / 12/01/2016 14:53:15 Sujit Hidalgo MD / [facility] Interpreting Provider: Sujit Hidalgo MD - VTE Documentation of Mechanical Device: Venous foot pump, device Consult Discharge Plan - Plan Referrals: Lynn Garcia MD [Primary Care Provider] - <José Bose - Last Filed: 12/02/16 14:34> Date of Encounter: 12/02/16 - Constitutional Vitals: Temp Pulse Resp BP Pulse Ox 98.8 F 98 18 110/51 93 12/02/16 11:58 12/02/16 11:58 12/02/16 11:58 12/02/16 11:58 12/02/16 11:58 Internal Medicine: Result - Labs CBC & Chem 7: 12/01/16 15:07 12/01/16 05:29 Labs: Short CBC 12/01/16 Range/Units 15:07 Hgb 11.4 L (11.5-15.4) g/dL Hct 38.6 (35.3-44.9) % - ABG Interpretation ABG results: PT/INR, D-dimer PT 11.2 Seconds (9.4-12.1) 12/01/16 05:29 - Impressions Impressions Hip X-Ray 12/01/16 13:48 IMPRESSION: Baseline study, status post ORIF of intertrochanteric fracture of the left hip D/ / 12/01/2016 15:30:33 Dougie Vazquez MD / [facility] Interpreting Provider: Dougie Vazquez MD Fluoroscopy 12/01/16 13:56 IMPRESSION: Intraprocedural fluoroscopic spot images as above. See separate procedure report for more information. D/ / 12/01/2016 14:53:15 Sujit Hidalgo MD / [facility] Interpreting Provider: Sujit Hidalgo MD Hip X-Ray 12/01/16 13:56 IMPRESSION: Intraprocedural fluoroscopic spot images as above. See separate procedure report for more information. D/ / 12/01/2016 14:53:15 Sujit Hidalgo MD / [facility] Interpreting Provider: Sujit Hidalgo MD - Attending Attestation I have independently seen and examined this patient on 12/02/16, reviewed the EMR and discussed plan of care with the patient and resident physician 76 F with PMH of HTN, HLD, CHFpEF-euvolemic, CKD III admitted and being managed for Left proximal intertrochanteric fracture following a mechanical fall Aside from pain, she had no complains POD 1 s/p L ORIF Physical Exam: VSS, not in distress, speaks full sentences, HEENT: Moist oral mucosa, not cyanotic. Chest: CTAB, no added sounds, Heart S1, S2 no m/g/r, Abdomen is soft and not tender. LLE shorter and externally rotated Labs and Imaging reviewed: CBC WNL, Chem-Cr at baseline, Hip Xary confirms fracture. ECHO 2014-Mild LVDD, Nuclear stress test 05/2016: No ischemia Plan: Stable. PTOT eval. Continue pain control, resume medications Continue other management Rest of details as in resident physician's documentation
[2016-12-02] MEDS ORDERED: *HR* Metoprolol 5 MG/5 ML VIAL IVP ONE (23:19)
[2016-12-03] MEDS: *HR* Enoxaparin 30 MG/0.3 ML SYRINGE SQ SCH (04:25)
[2016-12-03] MEDS: *HR* OxyCODONE Immed Rel 5 MG TABLET PO PRN ×3 (04:25→14:49)
[2016-12-03] MEDS ORDERED: 0.9 % Sodium Chloride 1,000 ML IVC ONE ×2 (07:59→09:37)
--- NOTE | 2016-12-03 08:14 | Orthopedics Progress Note ---
Date of Encounter: 12/03/16 Time of Encounter: 08:14 Subjective Interval history: Patient was seen this morning doing well without complaints. Afebrile vital signs stable. Operative extremity: Neurovascularly intact Dressing clean dry and intact Calves nontender Assessment and plan: Continue with postoperative care Hematocrit 38 orthopedically stable for discharge Objective Vital signs: Vital Signs Temp Pulse Resp BP Pulse Ox 12/03/16 07:15 98.9 F 87 12 122/76 91 12/03/16 04:20 98.0 F 89 16 119/70 94 12/02/16 23:35 98.8 F 125 18 111/74 92 12/02/16 19:21 98.3 F 91 18 121/71 98 12/02/16 15:55 98.6 F 94 18 151/81 93 12/02/16 11:58 98.8 F 98 18 110/51 93 12/02/16 09:04 81 18 163/84 94 12/02/16 08:46 98.4 F 81 18 163/84 94 Intake and Output 12/02/16 12/03/16 12/03/16 23:59 07:59 15:59 Output Total 450 / 450 200 / 200 Balance -450 / -450 -200 / -200 Output: Urine 450 / 450 200 / 200 Other: Meal Dinner Percent of Meal Consumed 50% # Voids 1 Weight 74.2 kg Patient Weight 12/03/16 23:59 Weight 74.2 kg - Labs CBC & BMP: 12/01/16 15:07 12/01/16 05:29 Labs: Abnormal lab results Hgb 11.4 g/dL (11.5-15.4) L 12/01/16 15:07 MCHC 30.6 g/dL (31.6-35.5) L 12/01/16 05:29 Glucose 101 mg/dL (70-99) H 12/01/16 05:29 - VTE Documentation of Mechanical Device: Intermittent pneumatic compression device Consult Discharge Plan - Plan Referrals: Lynn Garcia MD [Primary Care Provider] -
--- NOTE | 2016-12-03 08:18 | Discharge Summary ---
<Norberto El - Last Filed: 12/04/16 09:01> Date of Encounter: 12/04/16 Time of Encounter: 08:18 - Discharge Diagnosis (1) Femur fracture, left Priority: Primary Status: Acute Qualifiers: Encounter type: initial encounter Femur location: intertrochanteric Fracture type: closed Fracture alignment: nondisplaced Qualified Code(s): S72.145A - Nondisplaced intertrochanteric fracture of left femur, initial encounter for closed fracture (2) Hypertension Priority: Secondary Status: Acute Qualifiers: Hypertension type: essential hypertension Qualified Code(s): I10 - Essential (primary) hypertension (3) Dyslipidemia Priority: Secondary Status: Acute (4) Chronic kidney disease, stage III (moderate) Priority: Secondary Status: Acute - Discharge Medications Prescriptions: Albuterol Sulfate [Albuterol Inhaler] 2 puff IH [id number] PRN #1 PRN Reason: Shortness Of Breath/Wheezing HYDROcodone/Acet 5/325 mg [[place] 5-325 mg] 1 tab PO Q6H PRN #12 PRN Reason: Pain Home Medications: Alendronate Sodium [Fosamax] 70 mg PO QWEEK 11/30/16 [History] BuPROPion SR (12 HR) [Wellbutrin SR] 150 mg PO BID 11/30/16 [History] Buspirone HCl [Buspar] 7.5 mg PO DAILY 11/30/16 [History] Buspirone HCl [Buspar] 10 mg PO HS 11/30/16 [History] Furosemide [Lasix] 20 mg PO DAILY 11/30/16 [History] Gabapentin [Neurontin] 300 mg PO BID 11/30/16 [History] Lisinopril [Zestril] 40 mg PO DAILY 11/30/16 [History] Losartan Potassium [Cozaar] 100 mg PO DAILY 11/30/16 [History] Montelukast [Singulair] 10 mg PO HS 11/30/16 [History] PARoxetine HCl [Paroxetine HCl] 40 mg PO HS 11/30/16 [History] Simvastatin [Zocor] 20 mg PO HS 11/30/16 [History] amLODIPine [Norvasc] 5 mg PO DAILY 11/30/16 [History] HYDROcodone/Acet 5/325 mg [[place] 5-325 mg] 1 tab PO Q6H PRN #12 12/03/16 [Rx] Albuterol Sulfate [Albuterol Inhaler] 2 puff IH [id number] PRN #1 12/04/16 [Rx] Allergies/Adverse Reactions: 3 Allergy/AdvReac Type Severity Reaction Status Date / Time aspirin [ASA] AdvReac See Verified 08/01/15 10:41 Comments tramadol AdvReac See Verified 08/01/15 10:41 Comments Procedures/tests Complete & Pending: Procedures Performed prior 72 hours Category Date Time Status CT angio chest [CT] Stat Cat Scan 12/03/16 01:25 Taken Date of admission: 11/29/16 22:16 Primary care physician: Lynn Garcia, Consults: 11/30/16 14:14 Consult to Maintenance Worker Municipal [CONS] Routine Reason for SW Consult: D/C PLANNING 12/01/16 15:39 Consult to Occupational Therapy [CONS] Routine Comment: Evaluate, develop and implement POC Reason for Consult: post hip surgery Consult to Orthopedic Navigator [CONS] [CONS] Routine Consult to Physical Therapy [CONS] Routine Comment: Evaluate, develop and implement POC Reason for Consult: post hip surgery Consult to Maintenance Worker Municipal [CONS] Routine Reason for SW Consult: post -op hip fracture RT Post Op Consult [CONS] Routine Discharging clinician: José Bose ([facility]) Anticipated date of discharge: 12/04/16 - Patient Status Disposition: Transfer Inpatient Rehab Fac Condition: Good Functional capacity at discharge: uses cane/walker Overall status at discharge: patient is progressing back to baseline - Discharge Instructions Follow Up With: Lynn Garcia MD [Primary Care Provider] - Forms: ED Satisfaction Letter - Diet and Activity Activity: ambulate only with your walker, as per physical therapy Diet: low fat, low cholesterol, low salt diet, other (renal diet) Interval History: Patient did well overnight without complaints. She feels a little wheezy this morning, previously used her albuterol inhaler at home, but hasn't been receiving any here. She denies fevers, chills, sweats, nausea, vomiting, dysphagia, changes in appetite, chest pain, shortness of breath, abdominal pain , changes in bladder, dysuria, or loss of sensation. Cr 0.77 this morning. To be discharged to [facility]. Hospital course: Ms. Solis is a 76 year old female with history of hypertension, hyperlipidemia, and chonic kidney disease stage III who presented to the ED via EMS on 11/29/16 after sustaining a fall tripping over her dog and falling onto her left side. Patient reported left hip pain and was determined to have acute traumatic intertrochanteric left proximal femur fracture on hip xray. Patient was evaluated by Orthopedic surgery and underwent Left hip open reduction and intramedullary nailing on 12/01/16. Patient did well without complications and labs and vitals were monitored post op. On 12/02/16 evening, the patient developed some tachycardia in 120s. EKG was negative for acute changes, Troponins were negative, and CTA was negative for PE. Patient was otherwise doing well and had placement to [facility] for rehab; however, due to administration of contrast overnight and history of CKD stage III, the patient was held overnight to monitor for possibility of contrast induced nephropathy, morning Cr 0.77. Patient was discharged to SNF on 12/04/16 and to follow up with PCP and Orthopedic Surgery after rehab discharge. - Time Spent with Patient Total time spent providing and/or coordinating discharge services: - Constitutional Vitals: Temp Pulse Resp BP Pulse Ox 98.9 F 87 12 122/76 91 12/03/16 07:15 12/03/16 07:15 12/03/16 07:15 12/03/16 07:15 12/03/16 07:15 General appearance: Present: cooperative, A&O X 3, pleasant, no acute distress, answers questions appropriately - Head Head exam: Present: atraumatic, normal inspection, normocephalic - Eye Eye exam: Present: EOMI, normal appearance - ENT ENT exam: Present: mucous membranes moist, normal exam, normal oropharynx - Neck Neck exam general surgery: Present: full ROM, normal inspection, supple, trachea midline. Absent: tenderness - Respiratory Respiratory exam: Present: CTAB. Absent: rales, rhonchi, wheezes - Cardiovascular Cardiovascular exam: Present: RRR, +S1, +S2. Absent: diastolic murmur, irregular rhythm, JVD, systolic murmur - GI/Abdominal GI/Abdominal exam: Present: normal bowel sounds, soft. Absent: distended, guarding, tenderness - Extremities Exam Extremities exam: Present: full ROM, normal inspection, warm, radial pulses palpable and symmetrical. Absent: pedal edema, tenderness - Neurological Exam Neurological exam: Present: alert, CN II-XII intact, oriented X3, no focal deficits, strengths equal and symetr throughout. Absent: facial droop, speech deficit - Psychiatric Psychiatric exam: Present: normal affect, normal mood - Skin Skin exam: Present: dry, intact, normal color, warm. Absent: rash - VTE Documentation of Mechanical Device: Intermittent pneumatic compression device <José Bose - Last Filed: 12/04/16 12:16> Date of Encounter: 12/04/16 - Discharge Diagnosis (1) Atrial flutter Status: Acute Qualifiers: Atrial flutter type: unspecified Qualified Code(s): I48.92 - Unspecified atrial flutter Procedures/tests Complete & Pending: Procedures Performed prior 72 hours Category Date Time Status CT angio chest [CT] Stat Cat Scan 12/03/16 01:25 Completed ECG 12 lead ECG [ECG] Routine Y 12/02/16 23:37 Completed Date of admission: 11/29/16 22:16 Primary care physician: Lynn Garcia, Consults: 11/30/16 14:14 Consult to Maintenance Worker Municipal [CONS] Routine Reason for SW Consult: D/C PLANNING 12/01/16 15:39 Consult to Occupational Therapy [CONS] Routine Comment: Evaluate, develop and implement POC Reason for Consult: post hip surgery Consult to Orthopedic Navigator [CONS] [CONS] Routine Consult to Physical Therapy [CONS] Routine Comment: Evaluate, develop and implement POC Reason for Consult: post hip surgery Consult to Maintenance Worker Municipal [CONS] Routine Reason for SW Consult: post -op hip fracture RT Post Op Consult [CONS] Routine 12/04/16 11:08 Consult to Cardiology [CONS] Routine Comment: Consulting Provider: Cardiology Janet Reason for Consult: newly found aflutter, post op d3 left hip Call Completed: Yes Hospital course: Ms. Solis is a 76 year old female - Time Spent with Patient Total time spent providing and/or coordinating discharge services: - Constitutional Vitals: Temp Pulse Resp BP Pulse Ox 98.6 F 72 17 129/74 94 12/04/16 11:36 12/04/16 11:36 12/04/16 11:36 12/04/16 11:36 12/04/16 11:36 - Attending Attestation Patient is not discharged today, see progress notes for today for details
[2016-12-03] MEDS: Gabapentin 300 MG CAPSULE PO SCH ×2 (08:32→21:07)
[2016-12-03] MEDS: amLODIPine 5 MG TABLET PO SCH (08:32)
[2016-12-03] MEDS: BuPROPion SR (12 HR) 150 MG TABLET PO SCH ×2 (08:33→21:07)
--- NOTE | 2016-12-03 09:22 | Physician Discharge Referral ---
ExtendedCare Referral Info Transfer To: [facility] Provider in Charge: Dr. Bose Provider in Charge after Transfer: PCP - Diagnosis (1) Femur fracture, left Priority: Primary Status: Acute (2) Hypertension Priority: Secondary Status: Acute (3) Dyslipidemia Priority: Secondary Status: Acute (4) Chronic kidney disease, stage III (moderate) Priority: Secondary Status: Acute - Transfer Medications Prescriptions: HYDROcodone/Acet 5/325 mg [[place] 5-325 mg] 1 tab PO Q6H PRN #12 PRN Reason: Pain Home Medications: Alendronate Sodium [Fosamax] 70 mg PO QWEEK 11/30/16 [History] BuPROPion SR (12 HR) [Wellbutrin SR] 150 mg PO BID 11/30/16 [History] Buspirone HCl [Buspar] 7.5 mg PO DAILY 11/30/16 [History] Buspirone HCl [Buspar] 10 mg PO HS 11/30/16 [History] Furosemide [Lasix] 20 mg PO DAILY 11/30/16 [History] Gabapentin [Neurontin] 300 mg PO BID 11/30/16 [History] Lisinopril [Zestril] 40 mg PO DAILY 11/30/16 [History] Losartan Potassium [Cozaar] 100 mg PO DAILY 11/30/16 [History] Montelukast [Singulair] 10 mg PO HS 11/30/16 [History] PARoxetine HCl [Paroxetine HCl] 40 mg PO HS 11/30/16 [History] Simvastatin [Zocor] 20 mg PO HS 11/30/16 [History] amLODIPine [Norvasc] 5 mg PO DAILY 11/30/16 [History] HYDROcodone/Acet 5/325 mg [[place] 5-325 mg] 1 tab PO Q6H PRN #12 12/03/16 [Rx] Allergies/Adverse Reactions: 3 Allergy/AdvReac Type Severity Reaction Status Date / Time aspirin [ASA] AdvReac See Verified 08/01/15 10:41 Comments tramadol AdvReac See Verified 08/01/15 10:41 Comments - Respiratory Orders Smoking Cessation: Smoking cessation has been advised. For more information, call the [place] Tobacco Quit Line at 6-095-RNOB-NOW. - Ancillary Orders May use pressure relief devices daily prn, May go on SAMANTHA w/family/respon democrat w /meds at nurse discretion PRN, May consult with Dentist, Baseball Club Manager, Inspector And Tester PRN - Advance Directives Power of Food Truck Caterer: Yes Code Status: Full Code - Mobility Orders Chair, Ambulate, Other (per PT) - Rehabiliation Orders Rehab Potential: Good Rehab Orders: ROM Exercises, Evaluation for Physical Therapy, Evaluation for Occupational Therapy - Treatments Skin tear care topically daily PRN per policy, May check for fecal impaction rectally daily PRN - Diet Orders No Added Salt (AIDEN), Renal CERTIFICATION: I certify that the transfer of the above named patient to an Extended Care Facility is necessary for the continuing treatment of the diagnosis listed. The above information is true and accurate reflection of patient's current condition. Confidential - Redisclosure prohibited without a patient's written consent.
--- NOTE | 2016-12-03 09:37 | Physician Discharge Referral ---
ExtendedCare Referral Info Transfer To: [facility] Provider in Charge: Dr. Bose Provider in Charge after Transfer: PCP - Diagnosis (1) Femur fracture, left Priority: Primary Status: Acute (2) Hypertension Priority: Secondary Status: Acute (3) Dyslipidemia Priority: Secondary Status: Acute (4) Chronic kidney disease, stage III (moderate) Priority: Secondary Status: Acute - Transfer Medications Prescriptions: HYDROcodone/Acet 5/325 mg [[place] 5-325 mg] 1 tab PO Q6H PRN #12 PRN Reason: Pain Home Medications: Alendronate Sodium [Fosamax] 70 mg PO QWEEK 11/30/16 [History] BuPROPion SR (12 HR) [Wellbutrin SR] 150 mg PO BID 11/30/16 [History] Buspirone HCl [Buspar] 7.5 mg PO DAILY 11/30/16 [History] Buspirone HCl [Buspar] 10 mg PO HS 11/30/16 [History] Furosemide [Lasix] 20 mg PO DAILY 11/30/16 [History] Gabapentin [Neurontin] 300 mg PO BID 11/30/16 [History] Lisinopril [Zestril] 40 mg PO DAILY 11/30/16 [History] Losartan Potassium [Cozaar] 100 mg PO DAILY 11/30/16 [History] Montelukast [Singulair] 10 mg PO HS 11/30/16 [History] PARoxetine HCl [Paroxetine HCl] 40 mg PO HS 11/30/16 [History] Simvastatin [Zocor] 20 mg PO HS 11/30/16 [History] amLODIPine [Norvasc] 5 mg PO DAILY 11/30/16 [History] HYDROcodone/Acet 5/325 mg [[place] 5-325 mg] 1 tab PO Q6H PRN #12 12/03/16 [Rx] Allergies/Adverse Reactions: 3 Allergy/AdvReac Type Severity Reaction Status Date / Time aspirin [ASA] AdvReac See Verified 08/01/15 10:41 Comments tramadol AdvReac See Verified 08/01/15 10:41 Comments - Respiratory Orders Smoking Cessation: Smoking cessation has been advised. For more information, call the [place] Tobacco Quit Line at 8-939-DQYK-NOW. - Lab Orders Lab Orders: Other (include drug levels w/frequency) (BMP daily to monitor for kidney function, watch for Contrast induced nephropathy over next 48-72 hours.) - Ancillary Orders May use pressure relief devices daily prn, May go on SAMANTHA w/family/respon republican w /meds at nurse discretion PRN, May consult with Dentist, Order Manager, Paste Mixer Liquid PRN - Advance Directives Power of Gasket Notcher: Yes Code Status: Full Code - Mobility Orders Chair, Ambulate, Other (per PT recommendations) - Rehabiliation Orders Rehab Potential: Good Rehab Orders: ROM Exercises, Evaluation for Physical Therapy, Evaluation for Occupational Therapy - Treatments Skin tear care topically daily PRN per policy, May check for fecal impaction rectally daily PRN - Diet Orders No Added Salt (AIDEN), Renal CERTIFICATION: I certify that the transfer of the above named patient to an Extended Care Facility is necessary for the continuing treatment of the diagnosis listed. The above information is true and accurate reflection of patient's current condition. Confidential - Redisclosure prohibited without a patient's written consent.
--- NOTE | 2016-12-03 10:02 | Internal Med Progress Note ---
<RicjaydeNorberto gallego - Last Filed: 12/03/16 11:30> Date of Encounter: 12/03/16 Time of Encounter: 10:02 - Assessment and plan (1) Femur fracture, left Current Visit: Yes Status: Acute Assessment and plan: Patient sustained a fall onto left hip Tuesday evening. Hip x-ray revealed acute traumatic closed intertrochanteric left proximal femur fracture, not significantly displaced. Exam reveals neuro and vascularly intact. Vitals reviewed and stable. POD#2 Left hip open reduction intramedulary internal fixation Continue with pain medications prn Patient was approved for [facility]. Due to admin of contrast overnight for workup of tachycardia, patient will stay inpatient and continue to be monitored for possible FORREST. Qualifiers: Encounter type: initial encounter Femur location: intertrochanteric Fracture type: closed Fracture alignment: nondisplaced Qualified Code(s): S72.145A - Nondisplaced intertrochanteric fracture of left femur, initial encounter for closed fracture (2) Hypertension Current Visit: Yes Status: Acute Assessment and plan: Known history of hypertension. Bp 122/76, rate 87 Resume home meds Continue monitoring vitals. Qualifiers: Hypertension type: essential hypertension Qualified Code(s): I10 - Essential (primary) hypertension (3) Dyslipidemia Current Visit: Yes Status: Acute Assessment and plan: Known history of hyperlipidemia. Resume home meds (4) Chronic kidney disease, stage III (moderate) Current Visit: Yes Status: Acute Assessment and plan: Known history of CKD stage III, Cr 0.87 yesterday Continue monitoring labs. Due to admin of contrast overnight for tachycardia workup, patient will stay inpatient to monitor for possible FORREST. Given 1 L normal saline bolus this morning. - Subjective Interval history: Patient reports she had some significant pain overnight, but she also did not request medications. She did develop tachycardia with rate to 125 in the evening for which night resident was contacted. Patient was asymptomatic without chest pain or shortness of breath. Patient had ekg which revealed no changes from prior other than tachycardia, troponin 0.00, and CTA for concern of PE. CTA images reviewed and do not appear to indicate PE. Patient otherwise doing well this morning. Denies fevers, chills, sweats, nausea, vomiting, dysphagia, changes in appetite, chest pain, shortness of breath, abdominal pain, changes in bladder, dysuria, or loss of sensation. Patient does report no bowel movement since admissions. Patient was to be discharged to [facility], however, due to contrast admin to our CKD stage 3 patient, we will continue monitoring kidney function. - Constitutional Vitals: Temp Pulse Resp BP Pulse Ox 98.9 F 87 12 122/76 91 12/03/16 07:15 12/03/16 07:15 12/03/16 07:15 12/03/16 07:15 12/03/16 07:15 General appearance: Present: cooperative, A&O X 3, pleasant, no acute distress, answers questions appropriately - Head Head exam: Present: atraumatic, normal inspection, normocephalic - Eye Eye exam: Present: EOMI, normal appearance - ENT ENT exam: Present: mucous membranes moist, normal exam, normal oropharynx - Neck Neck exam general surgery: Present: full ROM, normal inspection, supple, trachea midline. Absent: tenderness - Respiratory Respiratory exam: Present: CTAB. Absent: decreased breath sounds, rales, respiratory distress, rhonchi, wheezes - Cardiovascular Cardiovascular exam: Present: RRR, +S1, +S2. Absent: diastolic murmur, irregular rhythm, systolic murmur - GI/Abdominal GI/Abdominal exam: Present: normal bowel sounds, soft. Absent: distended, guarding, tenderness - Extremities Exam Extremities exam: Present: normal inspection, tenderness (mild left hip tenderness), warm, radial pulses palpable and symmetrical. Absent: pedal edema - Neurological Exam Neurological exam: Present: alert, CN II-XII intact, oriented X3, no focal deficits, strengths equal and symetr throughout. Absent: motor sensory deficit , facial droop, speech deficit - Psychiatric Psychiatric exam: Present: normal affect, normal mood - Skin Skin exam: Present: dry, intact, normal color, warm. Absent: rash Internal Medicine: Result - Labs CBC & Chem 7: 12/01/16 15:07 12/01/16 05:29 Labs: Cardiac Enzymes 12/03/16 12/03/16 Range/Units 01:47 08:17 Troponin I 0.00 0.00 (0-0.03) ng/mL - ABG Interpretation ABG results: PT/INR, D-dimer PT 11.2 Seconds (9.4-12.1) 12/01/16 05:29 - VTE Documentation of Mechanical Device: Intermittent pneumatic compression device Consult Discharge Plan - Plan Referrals: Lynn Garcia MD [Primary Care Provider] - Prescriptions: HYDROcodone/Acet 5/325 mg [[place] 5-325 mg] 1 tab PO Q6H PRN #12 PRN Reason: Pain <José Bose - Last Filed: 12/03/16 12:14> Date of Encounter: 12/03/16 - Constitutional Vitals: Temp Pulse Resp BP Pulse Ox 98.0 F 85 16 106/71 92 12/03/16 11:33 12/03/16 11:33 12/03/16 11:33 12/03/16 11:33 12/03/16 11:33 Internal Medicine: Result - Labs CBC & Chem 7: 12/01/16 15:07 12/01/16 05:29 Labs: Cardiac Enzymes 12/03/16 12/03/16 Range/Units 01:47 08:17 Troponin I 0.00 0.00 (0-0.03) ng/mL - ABG Interpretation ABG results: PT/INR, D-dimer PT 11.2 Seconds (9.4-12.1) 12/01/16 05:29 - Impressions Impressions Chest CTA 12/03/16 01:25 IMPRESSION: 1. No evidence of a pulmonary embolus. 2. No acute abnormality identified within the lungs. 3. Ectasia of the ascending thoracic aorta measuring 3.9 cm. 4. There is an 8 mm hyperdense lesion within the left kidney, which could represent a hyperdense cyst. Consider further evaluation with renal ultrasound. D/ / Shaji Edwards MD / Shaji Edwards MD Interpreting Provider: hSaji Edwards MD - Attending Attestation I have independently seen and examined this patient on 12/03/16, reviewed the EMR and discussed plan of care with the patient and resident physician 76 F with PMH of HTN, HLD, CHFpEF-euvolemic, CKD III admitted and being managed for Left proximal intertrochanteric fracture following a mechanical fall Aside from pain, she had no complains POD 2 s/p L ORIF Patient denies new complains Overnight, she had an episode of asymptomatic sinus tachycardia. Work up done included EKG-Sinus rhythm, at baseline, Troponin negative X2. CTA-Negative for any acute lesions Physical Exam: VSS, not in distress, speaks full sentences, HEENT: Moist oral mucosa, not cyanotic. Chest: CTAB, no added sounds, Heart S1, S2 no m/g/r, Abdomen is soft and not tender. LLE well perfused distally, no swelling, wound dressing clean and dry Labs and Imaging reviewed: CBC WNL, Chem-Cr at baseline, CTA unremarkable A/P *Sinus tachycardia resolved *L intertrochanteric # s/p ORIF POD 2-stable, continue pain control, has a bed at [facility] *Contrast exposure in CKD-Give IVF and monitor for 48 hrs for FORREST *Other chronic conditions are stable Continue other management Rest of details as in resident physician's documentation
--- NOTE | 2016-12-03 11:40 | Event Note ---
Date of Encounter: 12/03/16 Time of Encounter: 12:25 PCR- POD#2 Left hip ORIF and IM nail 12/01 Dr. Atkinson. PCR - Patient seen at bedside with daughter present. Pain control: Adequate Participating in PT - WBTT. However patient presently on bedrest secondary to other health conditions. All questions and concerns addressed. Educated on use of incentive spirometer, ambulation, and hydration. Patient educated on post-operative restrictions and care. Addressed: see above. D/C plan: [facility] - per hospitalist team. Dressing to be left intact (clean on exam today) until in office follow up with [facility]. Any incision or hip concerns to be addressed by [facility] surgical team. If dressing becomes saturated or comes off - place similar appropriate dressing and notify [facility]. Patient to follow up in office with [facility] in 1-2 weeks with xrays. WBTT.
[2016-12-03] MEDS: Metoprolol 100 MG TABLET PO SCH (21:08)
[2016-12-04 04:59] LABS: BUN/Creatinine Ratio 16 (6-26); Blood Urea Nitrogen 12 mg/dL (7-20); Carbon Dioxide 30 mEq/L (19-29); Chloride 102 mEq/L (98-109); Glucose 96 mg/dL (70-99); Osmolality,Calculated 284 (280-300); Sodium 137 mEq/L (136-145); eGFR For African Americans > 60 (> 60); eGFR For Non-African Americans > 60 (> 60)
[2016-12-04] MEDS: *HR* Enoxaparin 30 MG/0.3 ML SYRINGE SQ SCH (06:02)
[2016-12-04] MEDS: *HR* OxyCODONE Immed Rel 5 MG TABLET PO PRN ×3 (06:02→20:07)
--- NOTE | 2016-12-04 07:50 | Orthopedics Progress Note ---
Date of Encounter: 12/04/16 Time of Encounter: 07:50 Subjective Interval history: Patient was seen this morning doing well without complaints. Afebrile vital signs stable. Operative extremity: Neurovascularly intact Dressing clean dry and intact [place] nontender Assessment and plan: Continue with postoperative care Hematocrit 38 orthopedically stable for discharge Objective Vital signs: Vital Signs Temp Pulse Resp BP Pulse Ox 12/04/16 05:24 99.0 F 72 18 127/74 95 12/03/16 23:20 99.0 F 100 18 134/84 96 12/03/16 20:00 96 12/03/16 18:52 98.5 F 102 19 103/62 95 12/03/16 16:17 98.7 F 91 19 115/67 93 12/03/16 11:33 98.0 F 85 16 106/71 92 12/03/16 08:30 91 Intake and Output 12/03/16 12/03/16 12/04/16 15:59 23:59 07:59 Intake Total 120 / 120 0 / 0 Output Total 200 / 200 150 / 150 Balance -80 / -80 -150 / -150 Intake: Oral 120 / 120 0 / 0 Output: Urine 200 / 200 150 / 150 Other: Meal Dinner Percent of Meal Consumed 25% - Labs CBC & BMP: 12/01/16 15:07 12/04/16 04:36 Labs: Abnormal lab results Hgb 11.4 g/dL (11.5-15.4) L 12/01/16 15:07 MCHC 30.6 g/dL (31.6-35.5) L 12/01/16 05:29 Carbon Dioxide 30 mEq/L (19-29) H 12/04/16 04:36 - VTE Documentation of Mechanical Device: Intermittent pneumatic compression device Consult Discharge Plan - Plan Referrals: Lynn Garcia MD [Primary Care Provider] - Prescriptions: HYDROcodone/Acet 5/325 mg [[place] 5-325 mg] 1 tab PO Q6H PRN #12 PRN Reason: Pain
--- NOTE | 2016-12-04 09:01 | Internal Med Progress Note ---
<RicjaydeNorberto gallego - Last Filed: 12/04/16 09:07> Date of Encounter: 12/04/16 Time of Encounter: 09:01 - Assessment and plan (1) Femur fracture, left Current Visit: Yes Status: Acute Assessment and plan: Patient sustained a fall onto left hip Tuesday evening. Hip x-ray revealed acute traumatic closed intertrochanteric left proximal femur fracture, not significantly displaced. Exam reveals neuro and vascularly intact. Vitals reviewed and stable. POD#3 Left hip open reduction intramedulary internal fixation Continue with pain medications prn Patient was approved for [facility]. Discharge today. Qualifiers: Encounter type: initial encounter Femur location: intertrochanteric Fracture type: closed Fracture alignment: nondisplaced Qualified Code(s): S72.145A - Nondisplaced intertrochanteric fracture of left femur, initial encounter for closed fracture (2) Hypertension Current Visit: Yes Status: Acute Assessment and plan: Known history of hypertension. Bp 119/69, rate 73 Resume home meds Continue monitoring vitals. Qualifiers: Hypertension type: essential hypertension Qualified Code(s): I10 - Essential (primary) hypertension (3) Dyslipidemia Current Visit: Yes Status: Acute Assessment and plan: Known history of hyperlipidemia. Resume home meds (4) Chronic kidney disease, stage III (moderate) Current Visit: Yes Status: Acute Assessment and plan: Known history of CKD stage III, Cr 0.77 today Continue monitoring labs. Due to admin of contrast overnight for tachycardia workup 12/03/16, patient was held overnight to monitor kidney function. - Subjective Interval history: Patient did well overnight without complaints. She feels a little wheezy this morning, previously used her albuterol inhaler at home, but hasn't been receiving any here. She denies fevers, chills, sweats, nausea, vomiting, dysphagia, changes in appetite, chest pain, shortness of breath, abdominal pain , changes in bladder, dysuria, or loss of sensation. Cr 0.77 this morning. To be discharged to [facility]. See Discharge Summary dated 12/03/16, completed and signed today 12/04/16 for additional info. - Constitutional Vitals: Temp Pulse Resp BP Pulse Ox 98.4 F 73 18 119/69 95 12/04/16 07:53 12/04/16 07:53 12/04/16 07:53 12/04/16 07:53 12/04/16 07:53 General appearance: Present: cooperative, A&O X 3, pleasant, no acute distress, answers questions appropriately - Head Head exam: Present: atraumatic, normal inspection, normocephalic - Eye Eye exam: Present: EOMI, normal appearance - ENT ENT exam: Present: mucous membranes moist, normal exam, normal oropharynx - Neck Neck exam general surgery: Present: full ROM, normal inspection, supple, trachea midline. Absent: tenderness - Respiratory Respiratory exam: Present: CTAB. Absent: rales, rhonchi, wheezes - Cardiovascular Cardiovascular exam: Present: RRR, +S1, +S2. Absent: diastolic murmur, systolic murmur - GI/Abdominal GI/Abdominal exam: Present: normal bowel sounds, soft. Absent: distended, guarding, tenderness - Extremities Exam Extremities exam: Present: full ROM, normal inspection, warm, radial pulses palpable and symmetrical. Absent: pedal edema - Neurological Exam Neurological exam: Present: alert, CN II-XII intact, oriented X3, no focal deficits, strengths equal and symetr throughout. Absent: facial droop, speech deficit - Psychiatric Psychiatric exam: Present: normal affect, normal mood - Skin Skin exam: Present: dry, intact, normal color, warm. Absent: rash Internal Medicine: Result - Labs CBC & Chem 7: 12/01/16 15:07 12/04/16 04:36 Labs: BMP 12/04/16 04:36 Sodium 137 Potassium 4.0 Chloride 102 Carbon Dioxide 30 H BUN 12 Creatinine 0.77 Glucose 96 Calcium 9.0 Cardiac Enzymes 12/03/16 Range/Units 08:17 Troponin I 0.00 (0-0.03) ng/mL - ABG Interpretation ABG results: PT/INR, D-dimer PT 11.2 Seconds (9.4-12.1) 12/01/16 05:29 - Impressions Impressions Chest CTA 12/03/16 01:25 IMPRESSION: 1. No evidence of a pulmonary embolus. 2. No acute abnormality identified within the lungs. 3. Ectasia of the ascending thoracic aorta measuring 3.9 cm. 4. There is an 8 mm hyperdense lesion within the left kidney, which could represent a hyperdense cyst. Consider further evaluation with renal ultrasound. D/ / Shaji Edwards MD / Shaji Edwards MD Interpreting Provider: Shaji Edwards MD - VTE Documentation of Mechanical Device: Intermittent pneumatic compression device Consult Discharge Plan - Plan Referrals: Lynn Garcia MD [Primary Care Provider] - Prescriptions: Albuterol Sulfate [Albuterol Inhaler] 2 puff IH [id number] PRN #1 PRN Reason: Shortness Of Breath/Wheezing HYDROcodone/Acet 5/325 mg [[place] 5-325 mg] 1 tab PO Q6H PRN #12 PRN Reason: Pain <José Bose T - Last Filed: 12/04/16 11:19> Date of Encounter: 12/04/16 - Assessment and plan (1) Atrial flutter Current Visit: Yes Status: Acute Qualifiers: Atrial flutter type: unspecified Qualified Code(s): I48.92 - Unspecified atrial flutter - Constitutional Vitals: Temp Pulse Resp BP Pulse Ox 98.4 F 73 18 119/69 95 12/04/16 07:53 12/04/16 07:53 12/04/16 07:53 12/04/16 07:53 12/04/16 07:53 Internal Medicine: Result - Labs CBC & Chem 7: 12/01/16 15:07 12/04/16 04:36 Labs: BMP 12/04/16 04:36 Sodium 137 Potassium 4.0 Chloride 102 Carbon Dioxide 30 H BUN 12 Creatinine 0.77 Glucose 96 Calcium 9.0 - ABG Interpretation ABG results: PT/INR, D-dimer PT 11.2 Seconds (9.4-12.1) 12/01/16 05:29 - Attending Attestation I have independently seen and examined this patient on 12/04/16, reviewed the EMR and discussed plan of care with the patient and resident physician 76 F with PMH of HTN, HLD, CHFpEF-euvolemic, CKD III admitted and being managed for Left proximal intertrochanteric fracture following a mechanical fall Aside from pain, she had no complains POD 3 s/p L ORIF Patient denies new complains Overnight 12/03 she had an episode of asymptomatic sinus tachycardia. Work up done included EKG-Sinus rhythm, at baseline, Troponin negative X2. CTA-Negative for any acute lesions Again, last night, she had HR up to 257, that sustained for 90 minutes- Telemetry and EKG reviewed: Aflutter with 2: 1 conduction [id number] score is 4 Patient was asymptomatic throughout Her HR has been controlled since then on Metoprolol Physical Exam: VSS, not in distress, speaks full sentences, HEENT: Moist oral mucosa, not cyanotic. Chest: CTAB, no added sounds, Heart S1, S2 no m/g/r, Abdomen is soft and not tender. LLE well perfused distally, no swelling, wound dressing clean and dry Labs and Imaging reviewed: CBC WNL, Chem-Cr at baseline, CTA unremarkable A/P *Aflutter with RVR: Continue metoprolol, start eliquis, consult cardiology *L intertrochanteric # s/p ORIF POD 3-stable, continue pain control, has a bed at [facility] *Contrast exposure in CKD-Chem is stable *Other chronic conditions are stable Continue other management Rest of details as in resident physician's documentation
[2016-12-04] MEDS: Gabapentin 300 MG CAPSULE PO SCH ×2 (11:29→20:01)
[2016-12-04] MEDS: BuPROPion SR (12 HR) 150 MG TABLET PO SCH ×2 (11:29→20:01)
[2016-12-04] MEDS: amLODIPine 5 MG TABLET PO SCH (11:30)
[2016-12-04] MEDS: Metoprolol 100 MG TABLET PO SCH (11:30)
--- NOTE | 2016-12-04 11:51 | Cardiology Consult Note ---
Date of Encounter: 12/04/16 Time of Encounter: 11:49 Assessment and Plan (1) Tachycardia Current Visit: Yes Status: Acute Telemetry and EKGs reviewed--appears to be intermittent episodes of sinus tach s /p hip surgery. Afebrile, negative chest CTA. 24 hr tele AVG HR is 87bpm. On telemetry review there is no evidence that HR was as high as 200s as previously reported and there is no evidence of A- Flutter. There is underlying artifact on tele, but rhythm appears sinus rhythm with sinus tach intermittently. Pt denies chest pain, dyspnea or palpitations. Currently on Lopressor 100mg daily, which should be dosed BID--explains why the tachycardia has been mostly nocturnal. Switch to BID dosing. Pt had negative stress test 05/2016. Negative tilt 04/04/15. Echo 01/2015 EF preserved, mild diastolic dysfunction, mild LVH with mild-moderate MS. Holter 03/2015 SR baseline, occasional PACs and PVCs with 2 short runs PAT. K 4.0. No further cardiac testing warranted. Anticipate sign off once seen and evaluated by Dr. Cheney. Reconsult PRN. Discussion w patient/family: The assessment and plan as outlined above was discussed with the patient and/or family members who expressed understanding and agreement. All questions were answered. Thank you for involving us in the care of your patient. Please call with any questions. I will discuss all the above with Dr. Cheney and make changes as necessary. History of Present Illness Consult date: 12/04/16 Requesting physician: José Bose Consult reason: Tachycardia Chief complaint: none History of present illness: Ms. Solis is a 76 year old female with PMH of orthostasis, HTN, HLD, anxiety, synopal events earlier this year that from home via EMS after falling in her home. Patient tripped on her dog and fell, landing on her left side on tile floor. Patient denies loss of consciousness. She was found to have a left femur fx and is post op left hip ORIF and IM nail on 12/01. Cardiology was consulted by primary team due to concerns of tachycardia/possible A-Flutter. Family reported HR 200s sustained for 90 minutes yesterday evening. She is currently SR at bedside. She denies any palpitations, chest pain or dyspnea during hospitalization. Chest CTA obtained for tachycardia, negative. Prior CV testing: Cartoid dopplers 02/03/15: Right ICA essentially normal. Left bifurcation nonstenotic plaque. Left ICA essentially normal. Echo 02/03/15: EF 60%, mild concentric LVH, mild LVDD, mild-moderate MS. Negative tilt 04/04/15. Holter 04/07/15: Baseline rhythm normal sinus, occasional PACs and PVCs, 2 short runs PAT. Stress test 06/18/16: Perfusion imaging negative for ischemia or infarct. Gated EF >70%. Past Med Surg Social Fam HX - Past Medical History Medical history: arthritis, CHF, hyperlipidemia, hypertension Psychiatric history: anxiety, depression - Past Surgical History Surgical History: knee replacement, orthopedic, other - Social History Smoking Status: Former smoker Smokeless Tobacco Status: No Alcohol use: none Drug use: none Medications and Allergies Alendronate Sodium [Fosamax] 70 mg PO QWEEK 11/30/16 [History] BuPROPion SR (12 HR) [Wellbutrin SR] 150 mg PO BID 11/30/16 [History] Buspirone HCl [Buspar] 7.5 mg PO DAILY 11/30/16 [History] Buspirone HCl [Buspar] 10 mg PO HS 11/30/16 [History] Furosemide [Lasix] 20 mg PO DAILY 11/30/16 [History] Gabapentin [Neurontin] 300 mg PO BID 11/30/16 [History] Lisinopril [Zestril] 40 mg PO DAILY 11/30/16 [History] Losartan Potassium [Cozaar] 100 mg PO DAILY 11/30/16 [History] Montelukast [Singulair] 10 mg PO HS 11/30/16 [History] PARoxetine HCl [Paroxetine HCl] 40 mg PO HS 11/30/16 [History] Simvastatin [Zocor] 20 mg PO HS 11/30/16 [History] amLODIPine [Norvasc] 5 mg PO DAILY 11/30/16 [History] HYDROcodone/Acet 5/325 mg [[place] 5-325 mg] 1 tab PO Q6H PRN #12 12/03/16 [Rx] Albuterol Sulfate [Albuterol Inhaler] 2 puff IH [id number] PRN #1 12/04/16 [Rx] 3 Allergy/AdvReac Type Severity Reaction Status Date / Time aspirin [ASA] AdvReac See Verified 08/01/15 10:41 Comments tramadol AdvReac See Verified 08/01/15 10:41 Comments All Systems Review: A 10-system review of systems was performed and is negative for pertinent findings except as documented above in the HPI. Physical Examination Vital Signs, Last 4 Hours Temp Pulse Resp BP Pulse Ox 12/04/16 11:36 98.6 F 72 17 129/74 94 12/04/16 07:53 98.4 F 73 18 119/69 95 Vital Signs Temp Pulse Resp BP Pulse Ox 12/04/16 11:36 98.6 F 72 17 129/74 94 12/04/16 07:53 98.4 F 73 18 119/69 95 12/04/16 05:24 99.0 F 72 18 127/74 95 12/03/16 23:20 99.0 F 100 18 134/84 96 12/03/16 20:00 96 12/03/16 18:52 98.5 F 102 19 103/62 95 12/03/16 16:17 98.7 F 91 19 115/67 93 Intake and Output 12/03/16 12/04/16 12/04/16 23:59 07:59 15:59 Intake Total 120 / 120 0 / 0 100 / 100 Output Total 200 / 200 150 / 150 Balance -80 / -80 -150 / -150 100 / 100 Intake: Oral 120 / 120 0 / 0 100 / 100 Output: Urine 200 / 200 150 / 150 Other: Meal Dinner Breakfast Percent of Meal Consumed 25% 0% # Urine Diapers 1 General: Conversant, No Apparent Distress HEENT: Atraumatic, Normocephaly, Mucus Membranes Moist Neck: No JVD, Normal carotid pulses Cardiac: Reg Rate and Rhythm, Normal S1 and S2, Other (2/6 murmur) Lungs: Normal Breath Sounds, No Wheeze, Rales, Rhonchi Neuro: Alert and responsive, No focal deficits noted Abdomen: Soft, Non-Tender Skin: No rashes noted on visualized skin Musculoskeletal: No Chest Wall Tenderness Extremities: No Clubbing, No Cyanosis, No Edema, Normal Pulses Results 12/01/16 15:07 12/04/16 04:36 Lab Results 12/04/16 04:36 Sodium 137 Potassium 4.0 Chloride 102 Carbon Dioxide 30 H BUN 12 Creatinine 0.77 Glucose 96 Calcium 9.0 BMP 12/04/16 Range/Units 04:36 Sodium 137 (136-145) mEq/L Potassium 4.0 (3.5-4.5) mEq/L Chloride 102 (98-109) mEq/L Carbon Dioxide 30 H (19-29) mEq/L BUN 12 (7-20) mg/dL Creatinine 0.77 (0.57-1.11) mg/dL Glucose 96 (70-99) mg/dL Calcium 9.0 (8.6-10.8) mg/dL Active Medications Acetaminophen (Tylenol) 650 mg PO Q6HR PRN PRN Reason: Mild Pain (1-3) Stop: 05/31/17 22:32 Albuterol Sulfate (Albuterol Inhaler) 2 puff IH [id number] PRN PRN Reason: Shortness Of Breath/Wheezing Stop: 06/05/17 09:01 Amlodipine Besylate (Norvasc) 5 mg PO DAILY SERGE PRN Reason: Protocol Stop: 06/02/17 09:01 Last Admin: 12/04/16 11:30 Dose: 5 mg Bupropion HCl (Wellbutrin Sr) 150 mg PO BID SERGE Stop: 06/01/17 21:01 Last Admin: 12/04/16 11:29 Dose: 150 mg Buspirone HCl (Buspar) 7.5 mg PO DAILY [facility] Stop: 06/04/17 09:01 Last Admin: 12/04/16 11:29 Dose: 7.5 mg Docusate Sodium (Colace) 100 mg PO BID PRN PRN Reason: Constipation Stop: 05/31/17 22:32 Enoxaparin Sodium (Lovenox) 30 mg SQ 0600 SERGE PRN Reason: Protocol Stop: 06/03/17 06:01 Last Admin: 12/04/16 06:02 Dose: 30 mg Gabapentin (Neurontin) 300 mg PO BID [facility] Stop: 06/01/17 21:01 Last Admin: 12/04/16 11:29 Dose: 300 mg Hydromorphone HCl (Dilaudid) 1 mg IVP Q3HR PRN PRN Reason: Pain Stop: 06/01/17 03:00 Last Admin: 12/01/16 16:08 Dose: 1 mg Losartan Potassium (Cozaar) 100 mg PO DAILY [facility] Stop: 06/04/17 09:01 Last Admin: 12/04/16 11:30 Dose: 100 mg Magnesium Hydroxide (Milk Of Magnesia Conc) 10 ml PO DAILY PRN PRN Reason: Indigestion Stop: 05/31/17 22:32 Melatonin (Melatonin) 9 mg PO HS PRN PRN Reason: Insomnia Stop: 06/02/17 22:38 Last Admin: 12/01/16 22:48 Dose: 9 mg Metoprolol Tartrate (Lopressor) 100 mg PO DAILY [facility] Stop: 06/04/17 20:46 Last Admin: 12/04/16 11:30 Dose: 100 mg Montelukast Sodium (Singulair) 10 mg PO HS [facility] Stop: 06/03/17 21:01 Last Admin: 12/03/16 21:08 Dose: 10 mg Naloxone HCl (Narcan) 0.4 mg IVP Q2MIN PRN PRN Reason: Opioid Reversal Stop: 05/31/17 22:32 Omeprazole (Prilosec) 20 mg PO DAILY@0630 SERGE PRN Reason: Protocol Stop: 06/01/17 06:31 Last Admin: 12/04/16 06:01 Dose: 20 mg Ondansetron HCl (Zofran) 4 mg IVP Q8HR PRN PRN Reason: Nausea And Vomiting Stop: 05/31/17 22:32 Oxycodone HCl (Roxicodone) 5 mg PO Q4HR PRN PRN Reason: Severe Pain 7-10 Stop: 06/02/17 15:40 Last Admin: 12/03/16 21:07 Dose: 5 mg Oxycodone HCl (Roxicodone) 10 mg PO Q4HR PRN PRN Reason: Severe pain 7-10 Stop: 06/02/17 15:40 Last Admin: 12/04/16 11:29 Dose: 10 mg Paroxetine HCl (Paxil) 40 mg PO HS [facility] Stop: 06/03/17 21:01 Last Admin: 12/03/16 21:07 Dose: 40 mg Simvastatin (Zocor) 20 mg PO HS [facility] PRN Reason: Protocol Stop: 06/03/17 21:01 Last Admin: 12/03/16 21:07 Dose: 20 mg - Imaging and Cardiology Stress Test: report reviewed Echo: report reviewed Holter: report reviewed - EKG Interpretation EKG results cardiology: personally reviewed (Sinus tach, HR 111), other (24 hr tele AVG HR 87, appears to be episdoes of sinus tach.) Consult Discharge Plan - Plan Referrals: Lynn Garcia MD [Primary Care Provider] - Prescriptions: Albuterol Sulfate [Albuterol Inhaler] 2 puff IH [id number] PRN #1 PRN Reason: Shortness Of Breath/Wheezing HYDROcodone/Acet 5/325 mg [[place] 5-325 mg] 1 tab PO Q6H PRN #12 PRN Reason: Pain
[2016-12-04] MEDS ORDERED: Metoprolol 100 MG TABLET PO SCH (21:00)
[2016-12-05 01:51] LABS: BUN/Creatinine Ratio 19 (6-26); Blood Urea Nitrogen 17 mg/dL (7-20); Calcium 8.8 mg/dL (8.6-10.8); Carbon Dioxide 25 mEq/L (19-29); Chloride 102 mEq/L (98-109); Glucose 103 mg/dL (70-99); Osmolality,Calculated 284 (280-300); Potassium 3.9 mEq/L (3.5-4.5); Sodium 136 mEq/L (136-145); eGFR For African Americans > 60 (> 60); eGFR For Non-African Americans > 60 (> 60)
[2016-12-05] MEDS ORDERED: *HR* Enoxaparin 30 MG/0.3 ML SYRINGE SQ SCH (06:00)
[2016-12-05] MEDS ORDERED: *HR* Enoxaparin 40 MG/0.4 ML SYRINGE SQ SCH (06:00)
--- NOTE | 2016-12-05 07:56 | Internal Med Progress Note ---
<Norberto El - Last Filed: 12/05/16 11:55> Date of Encounter: 12/05/16 Time of Encounter: 07:56 - Assessment and plan (1) Femur fracture, left Current Visit: Yes Status: Acute Assessment and plan: Patient sustained a fall onto left hip Tuesday evening 11/29/16. Hip x-ray revealed acute traumatic closed intertrochanteric left proximal femur fracture, not significantly displaced. Exam reveals neuro and vascularly intact. Vitals reviewed and stable. POD#4 Left hip open reduction intramedulary internal fixation Continue with pain medications prn Patient was approved for [facility]. Discharge today. Qualifiers: Encounter type: initial encounter Femur location: intertrochanteric Fracture type: closed Fracture alignment: nondisplaced Qualified Code(s): S72.145A - Nondisplaced intertrochanteric fracture of left femur, initial encounter for closed fracture (2) Tachycardia Current Visit: Yes Status: Acute Assessment and plan: Intermittent tachycardia on telemetry s/p hip surgery. CTA chest negative for PE Noted on telemetry 12/03/16 evening to have hr as high as 200s, Cardio was consulted for concern of aflutter. Cardio recommended change of Metoprolol Succinate 100mg to Metoprolol tartrate 50mg bid to accounte for the night time tachycardia. Negative stress test in 05/2016 and Echo with preserved EF, mild diastolic dysfunction, mild LVH and mild-moderate MN. -Will discharge with script for Metoprolol tartrate 50mg bid. (3) Hypertension Current Visit: Yes Status: Acute Assessment and plan: Known history of hypertension. Bp 162/84 Resume home meds Continue monitoring vitals. Qualifiers: Hypertension type: essential hypertension Qualified Code(s): I10 - Essential (primary) hypertension (4) Dyslipidemia Current Visit: Yes Status: Acute Assessment and plan: Known history of hyperlipidemia. Resume home meds (5) Chronic kidney disease, stage III (moderate) Current Visit: Yes Status: Acute Assessment and plan: Known history of CKD stage III, Cr 0.88 today Continue monitoring labs. Due to admin of contrast overnight for tachycardia workup 12/03/16, patient was held overnight to monitor kidney function. (6) Constipation Current Visit: Yes Status: Acute Assessment and plan: No abdominal pain per patient. No bowel movement since admission on 11/29/16 Likely secondary to opiate pain medications. -Senna Plus ordered. Qualifiers: Constipation type: drug induced constipation Qualified Code(s): K59.03 - Drug induced constipation - Subjective Interval history: Patient did well overnight without complaints. She denies fevers, chills, sweats, nausea, vomiting, dysphagia, changes in appetite, chest pain, shortness of breath, abdominal pain, changes in bladder, dysuria, or loss of sensation. Cr 0.88 this morning. No additional episodes of tachycardia overnight. To be discharged to [facility] today. See Discharge Summary dated 12/03/16, completed on 12/04/16. Addendum created 12/05/16 for discharge today. Updated ECF orders due to medication change. - Constitutional Vitals: Temp Pulse Resp BP Pulse Ox 98.7 F 72 16 162/84 97 12/05/16 07:00 12/05/16 07:00 12/05/16 07:00 12/05/16 07:00 12/05/16 07:00 General appearance: Present: cooperative, A&O X 3, pleasant, no acute distress, answers questions appropriately - Head Head exam: Present: atraumatic, normal inspection, normocephalic - Eye Eye exam: Present: EOMI, normal appearance - ENT ENT exam: Present: mucous membranes moist, normal exam, normal oropharynx - Neck Neck exam general surgery: Present: full ROM, normal inspection, supple, trachea midline. Absent: tenderness - Respiratory Respiratory exam: Present: CTAB. Absent: rales, rhonchi, wheezes - Cardiovascular Cardiovascular exam: Present: RRR, +S1, +S2. Absent: diastolic murmur, JVD, systolic murmur - GI/Abdominal GI/Abdominal exam: Present: normal bowel sounds, soft. Absent: distended, guarding, tenderness - Extremities Exam Extremities exam: Present: full ROM, normal inspection, warm, radial pulses palpable and symmetrical. Absent: pedal edema Additional comments: minimal pain left hip with palpation - Neurological Exam Neurological exam: Present: alert, CN II-XII intact, oriented X3, no focal deficits, strengths equal and symetr throughout. Absent: facial droop, speech deficit - Psychiatric Psychiatric exam: Present: normal affect, normal mood - Skin Skin exam: Present: cyanosis, dry, intact, normal color, warm. Absent: rash Internal Medicine: Result - Labs CBC & Chem 7: 12/01/16 15:07 12/05/16 01:09 Labs: BMP 12/05/16 01:09 Sodium 136 Potassium 3.9 Chloride 102 Carbon Dioxide 25 BUN 17 Creatinine 0.88 Glucose 103 H Calcium 8.8 - ABG Interpretation ABG results: PT/INR, D-dimer PT 11.2 Seconds (9.4-12.1) 12/01/16 05:29 - VTE Documentation of Mechanical Device: Venous foot pump, device Consult Discharge Plan - Plan Referrals: Lynn Garcia MD [Primary Care Provider] - Prescriptions: Albuterol Sulfate [Albuterol Inhaler] 2 puff IH [id number] PRN #1 PRN Reason: Shortness Of Breath/Wheezing HYDROcodone/Acet 5/325 mg [[place] 5-325 mg] 1 tab PO Q6H PRN #12 PRN Reason: Pain Metoprolol Tartrate [Lopressor] 50 mg PO BID #60 tablet <José Bose - Last Filed: 12/05/16 12:47> Date of Encounter: 12/05/16 - Assessment and plan (1) Atrial flutter Current Visit: Yes Status: Acute Qualifiers: Atrial flutter type: unspecified Qualified Code(s): I48.92 - Unspecified atrial flutter - Constitutional Vitals: Temp Pulse Resp BP Pulse Ox 98.3 F 67 16 116/71 94 12/05/16 11:00 12/05/16 11:00 12/05/16 11:00 12/05/16 11:00 12/05/16 11:00 Internal Medicine: Result - Labs CBC & Chem 7: 12/01/16 15:07 12/05/16 01:09 Labs: BMP 12/05/16 01:09 Sodium 136 Potassium 3.9 Chloride 102 Carbon Dioxide 25 BUN 17 Creatinine 0.88 Glucose 103 H Calcium 8.8 - ABG Interpretation ABG results: PT/INR, D-dimer PT 11.2 Seconds (9.4-12.1) 12/01/16 05:29 - Attending Attestation I have independently seen and examined this patient on 12/05/16, reviewed the EMR and discussed plan of care with the patient and resident physician 76 F with PMH of HTN, HLD, CHFpEF-euvolemic, CKD III admitted and being managed for Left proximal intertrochanteric fracture following a mechanical fall Aside from pain, she had no complains POD 4 s/p L ORIF Patient denies new complains She had multiple episodes of tachycardia in the hospital suspicious for arrhythmia, cardiology reviewed Her HR has been controlled since then on Metoprolol She denies new complains and is stable to be discharged to SNF today Physical Exam: VSS, not in distress, speaks full sentences, HEENT: Moist oral mucosa, not cyanotic. Chest: CTAB, no added sounds, Heart S1, S2 no m/g/r, Abdomen is soft and not tender. LLE well perfused distally, no swelling, wound dressing clean and dry Labs and Imaging reviewed: CBC WNL, Chem-Cr at baseline Rest of details as in resident physician's documentation
[2016-12-05] MEDS: BuPROPion SR (12 HR) 150 MG TABLET PO SCH (09:27)
[2016-12-05] MEDS: amLODIPine 5 MG TABLET PO SCH (09:27)
[2016-12-05] MEDS: Gabapentin 300 MG CAPSULE PO SCH (09:27)
[2016-12-05] MEDS: *HR* OxyCODONE Immed Rel 5 MG TABLET PO PRN ×2 (09:27→14:05)
--- NOTE | 2016-12-05 10:12 | Physician Discharge Referral ---
[facility]Care Referral Info Transfer To: [facility] Provider in Charge: Dr. Bose Provider in Charge after Transfer: PCP - Diagnosis (1) Femur fracture, left Priority: Primary Status: Acute (2) Tachycardia Priority: Secondary Status: Acute (3) Hypertension Priority: Secondary Status: Acute (4) Dyslipidemia Priority: Secondary Status: Acute (5) Chronic kidney disease, stage III (moderate) Priority: Secondary Status: Acute - Transfer Medications Prescriptions: Albuterol Sulfate [Albuterol Inhaler] 2 puff IH [id number] PRN #1 PRN Reason: Shortness Of Breath/Wheezing HYDROcodone/Acet 5/325 mg [[place] 5-325 mg] 1 tab PO Q6H PRN #12 PRN Reason: Pain Metoprolol Tartrate [Lopressor] 50 mg PO BID #60 tablet Home Medications: Alendronate Sodium [Fosamax] 70 mg PO QWEEK 11/30/16 [History] BuPROPion SR (12 HR) [Wellbutrin SR] 150 mg PO BID 11/30/16 [History] Buspirone HCl [Buspar] 7.5 mg PO DAILY 11/30/16 [History] Buspirone HCl [Buspar] 10 mg PO HS 11/30/16 [History] Furosemide [Lasix] 20 mg PO DAILY 11/30/16 [History] Gabapentin [Neurontin] 300 mg PO BID 11/30/16 [History] Lisinopril [Zestril] 40 mg PO DAILY 11/30/16 [History] Losartan Potassium [Cozaar] 100 mg PO DAILY 11/30/16 [History] Montelukast [Singulair] 10 mg PO HS 11/30/16 [History] PARoxetine HCl [Paroxetine HCl] 40 mg PO HS 11/30/16 [History] Simvastatin [Zocor] 20 mg PO HS 11/30/16 [History] amLODIPine [Norvasc] 5 mg PO DAILY 11/30/16 [History] HYDROcodone/Acet 5/325 mg [[place] 5-325 mg] 1 tab PO Q6H PRN #12 12/03/16 [Rx] Albuterol Sulfate [Albuterol Inhaler] 2 puff IH [id number] PRN #1 12/04/16 [Rx] Metoprolol Tartrate [Lopressor] 50 mg PO BID #60 tablet 12/05/16 [Rx] Allergies/Adverse Reactions: 3 Allergy/AdvReac Type Severity Reaction Status Date / Time aspirin [ASA] AdvReac See Verified 08/01/15 10:41 Comments tramadol AdvReac See Verified 08/01/15 10:41 Comments - Respiratory Orders Smoking Cessation: Smoking cessation has been advised. For more information, call the [employer] Quit Line at 4-024-ZBSC-NOW. - Lab Orders Lab Orders: Other (include drug levels w/frequency) (additional BMP/renal checks unnecessary, >48 hrs post contrast, monitored for FORREST risk completed.) - Ancillary Orders May use pressure relief devices daily prn, May go on SAMANTHA w/family/respon republican w /meds at nurse discretion PRN, May consult with Dentist, [employer]in [employer] Drier, Assistant Corporation Counsel PRN - Advance Directives Power of Approver: Yes Code Status: Full Code - Mobility Orders Chair, Ambulate, Other (per PT) - Rehabiliation Orders Rehab Potential: Good Rehab Orders: ROM Exercises, Evaluation for Physical Therapy, Evaluation for Occupational Therapy - Treatments Skin tear care topically daily PRN per policy, May check for fecal impaction rectally daily PRN - Diet Orders No Added Salt (AIDEN), Renal CERTIFICATION: I certify that the transfer of the above named patient to an Extended Care Facility is necessary for the continuing treatment of the diagnosis listed. The above information is true and accurate reflection of patient's current condition. Confidential - Redisclosure prohibited without a patient's written consent.
[2016-12-05 11:24] VITALS: BP 116/71
[2016-12-05] MEDS ORDERED: Sennosides/Docusate Sodium TABLET PO STA (11:41)
--- NOTE | 2016-12-06 06:23 | Electrocardiograph Report ---
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
== END 2016-12-05 15:34 | DRG 481 ==
LOC: EMEROO 19:56 → 3NENU 22:16 → SUATTDRO 22:16 → 3NENU 22:58
PROVIDERS: ADMIT Internal Medicine; ATTEND Internal Medicine

== ENCOUNTER 2018-04-19 12:48 | Inpatient (IN) ==
--- NOTE | 2018-04-19 13:26 | Emergency Department Note ---
Disposition Clinical Impression: COPD exacerbation, Weakness Pneumonia Qualifiers: Pneumonia type: due to unspecified organism Laterality: unspecified laterality Lung location: unspecified part of lung Qualified Code(s): J18.9 - Pneumonia, unspecified organism Disposition: Admitted As Inpatient Condition: Good Forms: ED Satisfaction Letter General Adult HPI - General Chief complaint: ED Fall Stated complaint: weakness Time Seen by Provider: 04/19/18 13:03 Source: patient, EMS Limitations: no limitations Nursing Notes Reviewed: Yes Vital Signs Reviewed: Yes - History of Present Illness HPI Narrative: Patient presented for evaluation of increasing weakness and shortness of breath. Symptoms started approximately a week ago with URI symptoms. Patient does not have official diagnosis of COPD but does have a smoking history and does have an inhaler at home. Patient states the albuterol does help clear her throat. The patient has tried Mucinex and Delsym at home. The patient has had worsening cough as well as worsening exertional dyspnea. Initial pulse ox found to be ap proximately 80%. No home oxygen. The patient has been dealing with this for the last week. The reason that she came in today was because as things have been getting worse she has been feeling dizzy worse with change of position as well as having a fall. She describes the fall as mild. She does not have any pain from the fall but this caused her to come to the emergency department she is not on blood thinners. She did not hit her head. She does not feel dizzy at this time and has no neurologic deficits. Further evaluation for weakness including most likely COPD versus pneumonia initiated. Breathing treatments as well as fluids. She did have an admission for CHF in the past. Gentle hydration at this point. Pain Scale: 0 - Related Data Home Medications Medication Instructions Recorded Confirmed Alendronate Sodium [Fosamax] 70 mg PO QWEEK 11/30/16 11/30/16 BuPROPion SR (12 HR) [Wellbutrin 150 mg PO BID 11/30/16 11/30/16 SR] Buspirone HCl [Buspar] 7.5 mg PO DAILY 11/30/16 11/30/16 Buspirone HCl [Buspar] 10 mg PO HS 11/30/16 11/30/16 Furosemide [Lasix] 20 mg PO DAILY 11/30/16 11/30/16 Gabapentin [Neurontin] 300 mg PO BID 11/30/16 11/30/16 Lisinopril [Zestril] 40 mg PO DAILY 11/30/16 11/30/16 Losartan Potassium [Cozaar] 100 mg PO DAILY 11/30/16 11/30/16 Montelukast [Singulair] 10 mg PO HS 11/30/16 11/30/16 PARoxetine HCl [Paroxetine HCl] 40 mg PO HS 11/30/16 11/30/16 Simvastatin [Zocor] 20 mg PO HS 11/30/16 11/30/16 amLODIPine [Norvasc] 5 mg PO DAILY 11/30/16 11/30/16 Previous Rx's Medication Instructions Recorded HYDROcodone/Acet 5/325 mg [[place] 1 tab PO Q6H PRN #12 12/03/16 5-325 mg] Albuterol Sulfate [Albuterol 2 puff IH [id number] PRN #1 12/04/16 Inhaler] Enoxaparin [Lovenox] 40 mg SQ 0600 12/05/16 Metoprolol Tartrate [Lopressor] 50 mg PO BID #60 tablet 12/05/16 Allergies Allergy/AdvReac Type Severity Reaction Status Date / Time aspirin [ASA] AdvReac See Verified 02/04/18 12:10 Comments tramadol AdvReac See Verified 02/04/18 12:10 Comments All systems ED: reviewed and negative except as stated. Review of Systems: As Per HPI Constitutional: Reports: fever, chills, weakness ENT ED: Reports: congestion Cardiovascular: Reports: dyspnea on exertion. Denies: chest pain, palpitations Respiratory: Reports: cough, dyspnea, wheezes Gastrointestinal: Reports: nausea. Denies: abdominal pain, vomiting, diarrhea Genitourinary: Denies: urgency, dysuria Musculoskeletal: Denies: back pain Integumentary: Denies: rash, abrasion Endocrine: Reports: fatigue Past Medical History - Past Medical History Medical history: Reports: non-contributory, arthritis, CHF, hyperlipidemia, hypertension Surgical history: Reports: knee replacement, orthopedic, other Psychiatric history: Reports: anxiety, depression - Social History Smoking Status: Former smoker Smokeless Tobacco Status: No Alcohol use: Reports: none Drug use: Reports: none Physical Exam General: Well appearing, nontoxic, no acute distress, nasal cannula in place Head: Normocephalic Atraumatic Eyes: PERRL, EOMI ENT: Airway patent, no stridor Neck: supple, no meningismus Chest: Diffuse wheezing bilaterally Cardiac: Regular rate and rhythm, no murmurs, rubs or gallops Abdomen: soft, nontender, nondistended; no guarding, rebound, or tenderness to percussion Musculoskeletal: Calves symmetric, nontender. Skin: No rash, normal skin tone. Neuro: Alert and Oriented to person, place, and time; cranial nerves II through XII intact, strength and sensation in the upper lower extremities intact. - General Limitations: no limitations General appearance: alert, in no apparent distress Course - Reevaluation(s) Reevaluation #1: Patient improved with breathing treatments. Patient still has moderate wheezing throughout. Patient 93% on my evaluation. Given her hypoxia and significant wheezing with no specific COPD history likely COPD exacerbation given her smoking history as well as pneumonia given the deep wet cough and elevated leukocytosis. - Consultations Consultation #1: Discussed with hospitalist. Patient accepted for admission. Vital Signs Temperature 99.2 F 04/19/18 12:54 Pulse Rate 70 04/19/18 12:54 Respiratory Rate 16 04/19/18 12:54 Blood Pressure 148/89 04/19/18 12:54 O2 Sat by Pulse Oximetry 99 04/19/18 12:54 Temperature 99.2 F 04/19/18 12:54 Pulse Rate 67 04/19/18 14:21 Respiratory Rate 18 04/19/18 14:21 Blood Pressure 160/73 04/19/18 14:21 O2 Sat by Pulse Oximetry 97 04/19/18 14:21 Oxygen Delivery Oxygen Delivery Nasal Cannula Medical Decision Making - Medical Records Medical records reviewed: Yes I reviewed the patient's medical records. - Lab Data Lab results reviewed: Yes I reviewed the patient's lab results. Result diagrams: 04/19/18 13:22 04/19/18 13:22 Lab Results 04/19/18 04/19/18 04/19/18 Range/Units 13:22 13:22 13:27 WBC 11.9 H (4.3-11.1) K/mcL RBC 4.68 (3.82-4.97) M/mcL Hgb 13.2 (11.5-15.4) g/dL Hct 43.6 (35.3-44.9) % MCV 93.2 (83.0-100.0) fL MCH 28.2 (28.0-33.3) pg MCHC 30.3 L (31.6-35.5) g/dL RDW 13.8 (11.5-14.5) % Plt Count 198 (140-400) K/mcL MPV 12.1 (9.4-12.4) fL Immature Gran % 0.3 (0-4) % Seg Neutrophils % 80.3 % Lymphocytes % 8.6 % Monocytes % 8.9 % Eosinophils % 1.6 % Basophils % 0.3 % Neutrophils # 9.5 H (1.6-8.9) K/mcL Lymphocytes # 1.0 (0.6-4.6) K/mcL Monocytes # 1.1 (0.0-1.3) K/mcL Eosinophils # 0.2 (0.0-0.6) K/mcL Basophils # 0.0 (0.0-0.2) K/mcL Sodium 137 (136-145) mEq/L Potassium 3.7 (3.5-5.1) mEq/L Chloride 104 (98-107) mEq/L Carbon Dioxide 34 H (23-29) mEq/L BUN 14 (8-23) mg/dL Creatinine 0.93 (0.60-1.20) mg/dL Est GFR ( Amer) > 60 (> 60) Est GFR (Non-Af Amer) 58 L (> 60) BUN/Creatinine Ratio 15 (6-26) Glucose 101 (70-105) mg/dL Calculated Osmolality 285 (280-300) Calcium 10.0 (8.6-10.3) mg/dL Total Bilirubin 0.6 (0.3-1.0) mg/dL AST 17 (13-39) Units/L ALT 16 (7-52) Units/L Alkaline Phosphatase 98 (34-104) Units/L Troponin I < 0.03 (< 0.04) ng/mL B-Natriuretic Peptide 37 (Less than 100) pg/mL Serum Total Protein 6.7 (6.4-8.9) g/dL Albumin 4.3 (3.5-5.7) g/dL Globulin 2.4 (2.4-3.5) g/dL Albumin/Globulin Ratio 1.8 (1.1-2.2) Urine Color (Yellow) Urine Clarity (Clear) Urine pH (5.0-8.0) pH Units Ur Specific [place] (1.010-1.025) Urine Protein (Neg-Trace) mg/dL Urine Glucose (UA) (Normal) mg/dL Urine Ketones (Negative) mg/dL Urine Blood (Negative) Urine Nitrite (Negative) Urine Bilirubin (Negative) Urine Urobilinogen (Normal) mg/dL Ur Leukocyte Esterase (Negative) Urine Microscopic RBC (0-3) per hpf Urine Microscopic WBC (0-3) per hpf Ur Squamous Epith Cells (None-Few) per lpf Urine Bacteria (None-Few) per hpf Hyaline Casts (None-Few) per lpf Ur Culture Indicated? (NO) 04/19/18 Range/Units 13:43 WBC (4.3-11.1) K/mcL RBC (3.82-4.97) M/mcL Hgb (11.5-15.4) g/dL Hct (35.3-44.9) % MCV (83.0-100.0) fL MCH (28.0-33.3) pg MCHC (31.6-35.5) g/dL RDW (11.5-14.5) % Plt Count (140-400) K/mcL MPV (9.4-12.4) fL Immature Gran % (0-4) % Seg Neutrophils % % Lymphocytes % % Monocytes % % Eosinophils % % Basophils % % Neutrophils # (1.6-8.9) K/mcL Lymphocytes # (0.6-4.6) K/mcL Monocytes # (0.0-1.3) K/mcL Eosinophils # (0.0-0.6) K/mcL Basophils # (0.0-0.2) K/mcL Sodium (136-145) mEq/L Potassium (3.5-5.1) mEq/L Chloride (98-107) mEq/L Carbon Dioxide (23-29) mEq/L BUN (8-23) mg/dL Creatinine (0.60-1.20) mg/dL Est GFR ( Amer) (> 60) Est GFR (Non-Af Amer) (> 60) BUN/Creatinine Ratio (6-26) Glucose (70-105) mg/dL Calculated Osmolality (280-300) Calcium (8.6-10.3) mg/dL Total Bilirubin (0.3-1.0) mg/dL AST (13-39) Units/L ALT (7-52) Units/L Alkaline Phosphatase (34-104) Units/L Troponin I (< 0.04) ng/mL B-Natriuretic Peptide (Less than 100) pg/mL Serum Total Protein (6.4-8.9) g/dL Albumin (3.5-5.7) g/dL Globulin (2.4-3.5) g/dL Albumin/Globulin Ratio (1.1-2.2) Urine Color Yellow (Yellow) Urine Clarity Clear (Clear) Urine pH 6.0 (5.0-8.0) pH Units Ur Specific [place] 1.011 (1.010-1.025) Urine Protein 100 H (Neg-Trace) mg/dL Urine Glucose (UA) Normal (Normal) mg/dL Urine Ketones Negative (Negative) mg/dL Urine Blood Negative (Negative) Urine Nitrite Negative (Negative) Urine Bilirubin Negative (Negative) Urine Urobilinogen Normal (Normal) mg/dL Ur Leukocyte Esterase Small H (Negative) Urine Microscopic RBC 0-3 (0-3) per hpf Urine Microscopic WBC 3-5 H (0-3) per hpf Ur Squamous Epith Cells Moderate H (None-Few) per lpf Urine Bacteria None Seen (None-Few) per hpf Hyaline Casts None Seen (None-Few) per lpf Ur Culture Indicated? YES A (NO) - Radiology Data Radiology results reviewed: Yes I reviewed the patient's radiology results. - EKG Data EKG #1 EKG attestation: Yes I reviewed and interpreted this EKG. EKG results narrative: EKG shows sinus rhythm with a heart rate of 69 WA 250 QRS 95 QTC 450. Patient has no significant elevations. Patient has depressions in V5 and V6 with T-wave flattening in aVL. No other EKG changes compared to 02/09/17.
[2018-04-19] MEDS ORDERED: Ipratropium/Albuterol Neb 3 ML IH ONE (13:38)
[2018-04-19] MEDS ORDERED: methylPREDNISolone 125 MG/2 ML VIAL IVP ONE (13:38)
[2018-04-19] MEDS ORDERED: 0.9 % Sodium Chloride 500 ML IVC ONE (13:41)
[2018-04-19] MEDS ORDERED: Azithromycin 500 MG in D5% in Water 250 ML IVPB ONE (13:58)
[2018-04-19 14:02] LABS: Bilirubin,Urine Negative (Negative); Blood,Urine Negative (Negative); Clarity,Urine Clear (Clear); Color,Urine Yellow (Yellow); Glucose,Urine (UA) Normal (Normal); Ketones,Urine Negative (Negative); Leukocyte Esterase,Urine Small (Negative); Nitrite,Urine Negative (Negative); Protein,Urine 100 mg/dL (Neg-Trace); Specific Gravity,Urine 1.011 (1.010-1.025); Urobilinogen,Urine Normal (Normal)
[2018-04-19 14:03] LABS: Bacteria,Urine None Seen per hpf (None-Few); Hyaline Casts,Urine None Seen per lpf (None-Few); RBC,Urine 0-3 per hpf (0-3); Squamous Epithelial Cell,Urine Moderate per lpf (None-Few)
[2018-04-19 14:06] LABS: Alanine Aminotransferase 16 Units/L (7-52); Albumin 4.3 g/dL (3.5-5.7); Albumin/Globulin Ratio 1.8 (1.1-2.2); Alkaline Phosphatase 98 Units/L (34-104); Aspartate Amino Transferase 17 Units/L (13-39); BUN/Creatinine Ratio 15 (6-26); Bilirubin,Total 0.6 mg/dL (0.3-1.0); Blood Urea Nitrogen 14 mg/dL (8-23); Carbon Dioxide 34 mEq/L (23-29); Chloride 104 mEq/L (98-107); Globulin 2.4 g/dL (2.4-3.5); Glucose 101 mg/dL (70-105); Osmolality,Calculated 285 (280-300); Potassium 3.7 mEq/L (3.5-5.1); Sodium 137 mEq/L (136-145); Total Protein 6.7 g/dL (6.4-8.9); Troponin I < 0.03 ng/mL (< 0.04); eGFR For Non-African Americans 58 (> 60)
[2018-04-19 14:07] LABS: Basophils % 0.3 %; Eosinophils # 0.2 K/mcL (0.0-0.6); Eosinophils % 1.6 %; Hematocrit 43.6 % (35.3-44.9); Hemoglobin 13.2 g/dL (11.5-15.4); Immature Granulocytes % 0.3 % (0-4); Lymphocytes % 8.6 %; Mean Corpuscular HGB Conc 30.3 g/dL (31.6-35.5); Mean Corpuscular Hemoglobin 28.2 pg (28.0-33.3); Mean Corpuscular Volume 93.2 fL (83.0-100.0); Mean Platelet Volume 12.1 fL (9.4-12.4); Monocytes # 1.1 K/mcL (0.0-1.3); Monocytes % 8.9 %; Neutrophils # 9.5 K/mcL (1.6-8.9); Platelet Count 198 K/mcL (140-400); Red Blood Count 4.68 M/mcL (3.82-4.97); Red Cell Distribution Width 13.8 % (11.5-14.5); Segmented Neutrophils % 80.3 %
[2018-04-19] MEDS ORDERED: cefTRIAXone 1,000 MG in Water for inj. (sterile) 20 ML 10 ML IVP ONE (15:51)
--- NOTE | 2018-04-19 18:54 | Internal Med History&Physical ---
Date of Encounter: 04/19/18 Time of Encounter: 18:30 Internal Medicine - H&P: HPI Chief complaint: shortness of breath Admitted From: Home Plans for Post Hospital Care: Home History of present illness: Ms. Solis is a 77 year old female with past medical history of HTN, HLD, CKD stage III, recent closed hip fracture. Pt presents with shortness of breath. Duaghter states last week Tuesday/ pt reported having sore throat. Pt states symptoms progressed to cough and SOB. She is not on home oxygen but daughter states she was precribed home oxygen about 2-3 years ago but for a short while. She denies hx of COPD and has been a smoker for approx 31 years. Pt states she has hx asthma. In ED WBC 11.9, hgb 13.2, hct 43.6, plt 198. NA 137, BUN 14, Cr 0.93 Urine analysis [place], 3-5 WBC, Chest x ray XR/XR chest 1V portable IMPRESSION: No acute abnormality. CODE STATUS: FULL Past Med Surg Social Fam HX - Past Medical History Medical history: non-contributory, arthritis, CHF, hyperlipidemia, hypertension Psychiatric history: anxiety, depression - Past Surgical History Surgical History: knee replacement, orthopedic, other - Social History Smoking Status: Former smoker Smokeless Tobacco Status: No Alcohol use: none Drug use: none Internal Medicine - H&P: Meds Alendronate Sodium [Fosamax] 70 mg PO QWEEK 11/30/16 [History] BuPROPion SR (12 HR) [Wellbutrin SR] 150 mg PO BID 11/30/16 [History] Buspirone HCl [Buspar] 7.5 mg PO DAILY 11/30/16 [History] Buspirone HCl [Buspar] 10 mg PO HS 11/30/16 [History] Furosemide [Lasix] 20 mg PO DAILY 11/30/16 [History] Gabapentin [Neurontin] 300 mg PO BID 11/30/16 [History] Lisinopril [Zestril] 40 mg PO DAILY 11/30/16 [History] Losartan Potassium [Cozaar] 100 mg PO DAILY 11/30/16 [History] Montelukast [Singulair] 10 mg PO HS 11/30/16 [History] PARoxetine HCl [Paroxetine HCl] 40 mg PO HS 11/30/16 [History] Simvastatin [Zocor] 20 mg PO HS 11/30/16 [History] amLODIPine [Norvasc] 5 mg PO DAILY 11/30/16 [History] HYDROcodone/Acet 5/325 mg [[place] 5-325 mg] 1 tab PO Q6H PRN #12 12/03/16 [Rx] Albuterol Sulfate [Albuterol Inhaler] 2 puff IH [id number] PRN #1 12/04/16 [Rx] Enoxaparin [Lovenox] 40 mg SQ 0600 12/05/16 [Rx] Metoprolol Tartrate [Lopressor] 50 mg PO BID #60 tablet 12/05/16 [Rx] Allergy/AdvReac Type Severity Reaction Status Date / Time aspirin [ASA] AdvReac See Verified 02/04/18 12:10 Comments tramadol AdvReac See Verified 02/04/18 12:10 Comments All Systems PM: A 10-system review of systems was performed and is negative for pertinent find ings except as documented above in the HPI. - Constitutional Vitals: Temp Pulse Resp BP Pulse Ox 99.2 F 67 18 160/73 97 04/19/18 12:54 04/19/18 14:21 04/19/18 14:21 04/19/18 14:21 04/19/18 14:21 General appearance: Present: A&O X 3, no acute distress Exam: . - Head Head exam: Present: atraumatic, normocephalic - Eye Eye exam: Present: PERRL, conjuntiva pink, sclera anicteric Pupils: Present: PERRL - Neck Neck exam general surgery: Present: supple, trachea midline. Absent: lymphadenopathy - Respiratory Respiratory exam: Absent: accessory muscle use, CTAB, rales, rhonchi, wheezes Additional comments: crackles bilateral bases - Cardiovascular Cardiovascular exam: Present: RRR, +S1, +S2. Absent: diastolic murmur, gallop, rubs, systolic murmur - GI/Abdominal GI/Abdominal exam: Present: normal bowel sounds, soft, no peritoneal signs. Absent: distended, tenderness - Extremities Exam Extremities exam: Present: warm, radial pulses palpable and symmetrical. Absent: calf tenderness, cyanotic, pedal edema - Neurological Exam Neurological exam: Present: CN II-XII intact, oriented X3, no focal deficits. Absent: pronater drift, facial droop, speech deficit - Skin Skin exam: Present: dry, intact Internal Med - H&P Results - Labs CBC & Chem 7: 04/19/18 13:22 04/19/18 13:22 Labs: Short CBC 04/19/18 Range/Units 13:22 WBC 11.9 H (4.3-11.1) K/mcL Hgb 13.2 (11.5-15.4) g/dL Hct 43.6 (35.3-44.9) % Plt Count 198 (140-400) K/mcL Neutrophils # 9.5 H (1.6-8.9) K/mcL BMP 04/19/18 13:22 Sodium 137 Potassium 3.7 Chloride 104 Carbon Dioxide 34 H BUN 14 Creatinine 0.93 Glucose 101 Calcium 10.0 Cardiac Enzymes 04/19/18 Range/Units 13:22 Troponin I < 0.03 (< 0.04) ng/mL Liver Function 04/19/18 Range/Units 13:22 Total Bilirubin 0.6 (0.3-1.0) mg/dL AST 17 (13-39) Units/L ALT 16 (7-52) Units/L Alkaline Phosphatase 98 (34-104) Units/L Albumin 4.3 (3.5-5.7) g/dL Urine 04/19/18 Range/Units 13:43 Urine Color Yellow (Yellow) Urine Clarity Clear (Clear) Urine pH 6.0 (5.0-8.0) pH Units Ur Specific [place] 1.011 (1.010-1.025) Urine Protein 100 H (Neg-Trace) mg/dL Urine Glucose (UA) Normal (Normal) mg/dL - Impressions ITS Impressions Chest X-Ray 04/19/18 13:04 IMPRESSION: No acute abnormality. D/ / Negro Rivera MD / Negro Rivera MD Interpreting Provider: Negro Rivera MD - Assessment and plan (1) Hypoxia Current Visit: Yes Status: Acute Assessment and plan: Pt on oxygen 2L NC due o oxygen saturation of 85%. No on home oxygen. (2) Viral syndrome Current Visit: Yes Status: Acute Assessment and plan: Will check respiratory panel (3) COPD exacerbation Current Visit: Yes Status: Acute Assessment and plan: Will place on nebs, oxygen, steroids, and will give antibiotic empirically. Chest x ray negative for PNA. (4) Chronic kidney disease, stage III (moderate) Current Visit: No Status: Acute Assessment and plan: Will monitor renal function (5) Hypertension Current Visit: No Status: Acute Assessment and plan: Will resume home metoprolol, norvasc and losartan Qualifiers: Hypertension type: essential hypertension Qualified Code(s): I10 - Essential (primary) hypertension - Time Spent With Patient Total time spent is greater than 50% in coordination of care (as documented) at patient's floor/unit and/or counseling patient: 25 - 35 minutes
[2018-04-19] MEDS ORDERED: Ondansetron 4 MG/2 ML VIAL IVP PRN (19:03)
[2018-04-19] MEDS ORDERED: Acetaminophen 325 MG TABLET PO PRN (19:03)
[2018-04-19] MEDS ORDERED: Naloxone 0.4 MG/ML INJ IVP PRN (19:03)
[2018-04-19] MEDS ORDERED: Levofloxacin 500 MG/100 ML 500 MG/100 ML BAG IVPB ONE (19:30)
[2018-04-19] MEDS: Metoprolol 100 MG TABLET PO SCH (21:23)
[2018-04-19] MEDS: Gabapentin 300 MG CAPSULE PO SCH (21:23)
[2018-04-19] MEDS: Ipratropium/Albuterol Neb 3 ML IH SCH (22:11)
[2018-04-19] MEDS ORDERED: Gabapentin 300 MG CAPSULE PO ONE (22:58)
[2018-04-19] MEDS ORDERED: *HR* HYDROcodone/Acet 5/325 mg TABLET PO ONE (23:48)
[2018-04-20] MEDS: Ipratropium/Albuterol Neb 3 ML IH SCH ×4 (03:49→22:43)
[2018-04-20 04:54] LABS: Adenovirus Not Detected (Not Detect); Bordetella Pertussis Not Detected (Not Detect); Chlamydophila pneumoniae Not Detected (Not Detect); Coronavirus 229E Not Detected (Not Detect); Coronavirus HKU1 Not Detected (Not Detect); Coronavirus NL63 Not Detected (Not Detect); Coronavirus OC43 Not Detected (Not Detect); Human Metapneumovirus Not Detected (Not Detect); Human Rhinovirus/Enterovirus DETECTED (Not Detect); Influenza A Subtype 2009 H1 Not Detected (Not Detect); Influenza A Untypeable Not Detected (Not Detect); Influenza B Not Detected (Not Detect); Mycoplasma pneumoniae Not Detected (Not Detect); Parainfluenza Virus 1 Not Detected (Not Detect); Parainfluenza Virus 2 Not Detected (Not Detect); Parainfluenza Virus 3 Not Detected (Not Detect); Parainfluenza Virus 4 Not Detected (Not Detect); Respiratory Syncytial Virus Not Detected (Not Detect)
[2018-04-20] MEDS: *HR* Enoxaparin 40 MG/0.4 ML SYRINGE SQ SCH (05:07)
[2018-04-20 06:11] LABS: Basophils % 0.2 %; Hematocrit 39.4 % (35.3-44.9); Hemoglobin 12.3 g/dL (11.5-15.4); Immature Granulocytes % 0.6 % (0-4); Lymphocytes # 0.7 K/mcL (0.6-4.6); Lymphocytes % 6.1 %; Mean Corpuscular HGB Conc 31.2 g/dL (31.6-35.5); Mean Corpuscular Hemoglobin 28.3 pg (28.0-33.3); Mean Corpuscular Volume 90.6 fL (83.0-100.0); Mean Platelet Volume 12.3 fL (9.4-12.4); Monocytes # 0.5 K/mcL (0.0-1.3); Monocytes % 3.7 %; Neutrophils # 10.8 K/mcL (1.6-8.9); Platelet Count 189 K/mcL (140-400); Red Blood Count 4.35 M/mcL (3.82-4.97); Red Cell Distribution Width 13.6 % (11.5-14.5); Segmented Neutrophils % 89.4 %
--- NOTE | 2018-04-20 07:09 | Electrocardiograph Report ---
[facility] Test Date: 2018-04-19 Pat Name: Tejal Solis Department: [id number] Room: 3B44 Gender: F [employer]er: : 1940 Requested By: Logan Baker Order Number: [id number] Reading MD: Nabil Garcia Measurements Intervals [place] Rate: 69 P: 98 FL: 250 QRS: -52 QRSD: 95 T: 48 QT: 420 QTc: 450 Interpretive Statements Sinus rhythm Prolonged FL interval Left anterior fascicular block Anteroseptal infarct, age indeterminate Electronically Signed On 04-20-2018 7:07:40 EST by Nabil Garcia
[2018-04-20 07:27] LABS: BUN/Creatinine Ratio 24 (6-26); Blood Urea Nitrogen 20 mg/dL (8-23); Calcium 9.7 mg/dL (8.6-10.3); Carbon Dioxide 29 mEq/L (23-29); Chloride 102 mEq/L (98-107); Glucose 160 mg/dL (70-105); Osmolality,Calculated 296 (280-300); Potassium 3.5 mEq/L (3.5-5.1); Sodium 140 mEq/L (136-145); eGFR For Non-African Americans > 60 (> 60)
[2018-04-20] MEDS: Furosemide 20 MG/2 ML VIAL IVP SCH (08:02)
[2018-04-20] MEDS: Nicotine 14 MG PATCH.TD24 TD SCH (08:02)
[2018-04-20] MEDS: Metoprolol 100 MG TABLET PO SCH ×2 (08:03→20:41)
[2018-04-20] MEDS: Gabapentin 300 MG CAPSULE PO SCH (08:03)
[2018-04-20] MEDS: predniSONE 20 MG TABLET PO SCH (08:03)
[2018-04-20] MEDS: Lisinopril 20 MG TABLET PO SCH (08:03)
[2018-04-20] MEDS ORDERED: amLODIPine 5 MG TABLET PO SCH (09:00)
[2018-04-20] MEDS ORDERED: Alendronate Sodium [Fosamax] 70 MG PO SCH (10:00)
[2018-04-20] MEDS: *HR* HYDROcodone/Acet 5/325 mg TABLET PO PRN ×3 (11:06→22:51)
--- NOTE | 2018-04-20 12:25 | Internal Med Progress Note ---
<Naveed Lou - Last Filed: 04/20/18 12:23> Date of Encounter: 04/20/18 Time of Encounter: 09:20 - Assessment and plan (1) COPD exacerbation Current Visit: Yes Status: Acute Assessment and plan: No prior history, but likely undiagnosed. She has an extensive history of smoking. Will need PFT's on outpatient setting. She still has mild-moderate wheezing on exam. Good O2 saturation of 93% for COPD patient on 2 L NC. - Continue duonebs. - Continue prednisone 40 mg PO. - Continue day 2 Levaquin. (2) Hypoxia Current Visit: Yes Status: Resolved Assessment and plan: 93% O2 on 2 L NC. - Continue oxygen supplementation. (3) Viral syndrome Current Visit: Yes Status: Acute Assessment and plan: Positive for Entero/Rhino virus. - Likely triggered her COPD exacerbation. (4) Chronic kidney disease, stage III (moderate) Current Visit: No Status: Acute Assessment and plan: Renal function within normal limits. (5) Hypertension Current Visit: No Status: Acute Assessment and plan: BP at 173/88. - Increase norvasc from 5 mg to 10 mg PO daily. - Continue losartan, metoprolol, and lisinopril at current dosage. Qualifiers: Hypertension type: essential hypertension Qualified Code(s): I10 - Essential (primary) hypertension (6) DVT prophylaxis Current Visit: No Status: Acute Assessment and plan: Lovenox. - Subjective Interval history: When seen today, patient denies any nausea or vomiting. She denies any abdominal pain. She says that her breathing has improved, although she does admit to some SOB. She denies any chest pain or lower extremity swelling. She denies any dysuria or hematuria. She denies any melena or hematochezia. She denies any fever. She does admit to a clear cough that has improved since yesterday. - Constitutional Vitals: Temp Pulse Resp BP Pulse Ox 98.6 F 75 16 158/83 94 04/20/18 11:56 04/20/18 11:56 04/20/18 11:56 04/20/18 11:56 04/20/18 11:56 General appearance: Present: A&O X 3, no acute distress - Respiratory Respiratory exam: Present: wheezes (Mild end-expiratory wheezing). Absent: rhonchi, tachypnea - Cardiovascular Cardiovascular exam: Present: RRR, +S1, +S2. Absent: diastolic murmur, gallop, rubs, systolic murmur - GI/Abdominal GI/Abdominal exam: Present: normal bowel sounds, soft, no peritoneal signs. Absent: distended, tenderness - Extremities Exam Extremities exam: Present: normal capillary refill, warm, radial pulses palpable and symmetrical. Absent: calf tenderness, cyanotic, pedal edema, tenderness Internal Medicine: Result - Labs CBC & Chem 7: 04/20/18 05:04 04/20/18 05:04 Labs: Short CBC 04/19/18 04/20/18 Range/Units 13:22 05:04 WBC 11.9 H 12.1 H (4.3-11.1) K/mcL Hgb 13.2 12.3 (11.5-15.4) g/dL Hct 43.6 39.4 (35.3-44.9) % Plt Count 198 189 (140-400) K/mcL Neutrophils # 9.5 H 10.8 H (1.6-8.9) K/mcL BMP 04/19/18 04/20/18 13:22 05:04 Sodium 137 140 Potassium 3.7 3.5 Chloride 104 102 Carbon Dioxide 34 H 29 BUN 14 20 Creatinine 0.93 0.85 Glucose 101 160 H Calcium 10.0 9.7 Cardiac Enzymes 04/19/18 Range/Units 13:22 Troponin I < 0.03 (< 0.04) ng/mL Liver Function 04/19/18 Range/Units 13:22 Total Bilirubin 0.6 (0.3-1.0) mg/dL AST 17 (13-39) Units/L ALT 16 (7-52) Units/L Alkaline Phosphatase 98 (34-104) Units/L Albumin 4.3 (3.5-5.7) g/dL Urine 04/19/18 Range/Units 13:43 Urine Color Yellow (Yellow) Urine Clarity Clear (Clear) Urine pH 6.0 (5.0-8.0) pH Units Ur Specific [place] 1.011 (1.010-1.025) Urine Protein 100 H (Neg-Trace) mg/dL Urine Glucose (UA) Normal (Normal) mg/dL - Impressions Impressions Chest X-Ray 04/19/18 13:04 IMPRESSION: No acute abnormality. D/ / Negro Rivera MD / Negro Rivera MD Interpreting Provider: Negro Rivera MD Consult Discharge Plan - Plan Referrals: Nabil Hodge MD [Primary Care Provider] - 04/27/18 11:00 am (Your appointment has been requested. Our offices will call with an appointment time and date.) <Pratik Barbosa - Last Filed: 04/20/18 14:07> Date of Encounter: 04/20/18 - Constitutional Vitals: Temp Pulse Resp BP Pulse Ox 98.6 F 75 16 158/83 94 04/20/18 11:56 04/20/18 11:56 04/20/18 11:56 04/20/18 11:56 04/20/18 11:56 Internal Medicine: Result - Labs CBC & Chem 7: 04/20/18 05:04 04/20/18 05:04 Labs: Short CBC 04/19/18 04/20/18 Range/Units 13:22 05:04 WBC 11.9 H 12.1 H (4.3-11.1) K/mcL Hgb 13.2 12.3 (11.5-15.4) g/dL Hct 43.6 39.4 (35.3-44.9) % Plt Count 198 189 (140-400) K/mcL Neutrophils # 9.5 H 10.8 H (1.6-8.9) K/mcL BMP 04/19/18 04/20/18 13:22 05:04 Sodium 137 140 Potassium 3.7 3.5 Chloride 104 102 Carbon Dioxide 34 H 29 BUN 14 20 Creatinine 0.93 0.85 Glucose 101 160 H Calcium 10.0 9.7 Cardiac Enzymes 04/19/18 Range/Units 13:22 Troponin I < 0.03 (< 0.04) ng/mL Liver Function 04/19/18 Range/Units 13:22 Total Bilirubin 0.6 (0.3-1.0) mg/dL AST 17 (13-39) Units/L ALT 16 (7-52) Units/L Alkaline Phosphatase 98 (34-104) Units/L Albumin 4.3 (3.5-5.7) g/dL Urine 04/19/18 Range/Units 13:43 Urine Color Yellow (Yellow) Urine Clarity Clear (Clear) Urine pH 6.0 (5.0-8.0) pH Units Ur Specific [place] 1.011 (1.010-1.025) Urine Protein 100 H (Neg-Trace) mg/dL Urine Glucose (UA) Normal (Normal) mg/dL - Attending Attestation I examined this patient and my medical decision-making was reviewed with the Resident Physician Dr. Lou . I agree with the documented findings, disposition and treatment plan as described except to the extent set forth below. Ms. Solis is a 77 year old female with past medical history of HTN, HLD, CKD stage III and chronic smoker pt presented to ER with worsening SOB and cough with expectoration. She was admitted in the hospital for acute hypoxic respiratory failure and stupid exacerbation. Pt was started on systemic steroids and empirical abx. Her resp viral panel came back as positive for Rhino virus. Pt states she is feeling better today. Continue current care. Will try to wean her off the O2. nc does need home O2 eval. Gen: A, A, O x 3 Chest: Diminished BS b/l , moderate wheezing, no crackles, no rales. 1. Acute COPD exacerbation 2. Acute hypoxic resp distress 3. Acute entro / rhino virus bronchitis 4. Chronic tobacco dependence
[2018-04-20] MEDS ORDERED: Levofloxacin 250 MG/50 ML 250 MG/50 ML BAG IVPB SCH (19:00)
[2018-04-20] MEDS ORDERED: Gabapentin 300 MG CAPSULE PO SCH (21:00)
[2018-04-20] MEDS ORDERED: Menthol 9.1 MG LOZENGE PO PRN (21:40)
[2018-04-21] MEDS: Ipratropium/Albuterol Neb 3 ML IH SCH ×2 (04:11→10:39)
[2018-04-21] MEDS: *HR* Enoxaparin 40 MG/0.4 ML SYRINGE SQ SCH (05:39)
[2018-04-21 06:46] VITALS: BP 166/84
[2018-04-21] MEDS: Nicotine 14 MG PATCH.TD24 TD SCH (08:27)
[2018-04-21] MEDS: Furosemide 20 MG/2 ML VIAL IVP SCH (08:27)
[2018-04-21] MEDS: Lisinopril 20 MG TABLET PO SCH (08:28)
[2018-04-21] MEDS: predniSONE 20 MG TABLET PO SCH (08:29)
[2018-04-21] MEDS: Metoprolol 100 MG TABLET PO SCH (08:29)
[2018-04-21] MEDS: *HR* HYDROcodone/Acet 5/325 mg TABLET PO PRN (08:30)
[2018-04-21] MEDS ORDERED: Gabapentin 300 MG CAPSULE PO SCH (09:00)
[2018-04-21] MEDS ORDERED: amLODIPine 5 MG TABLET PO SCH (09:00)
--- NOTE | 2018-04-21 10:49 | Discharge Summary ---
<Naveed Lou - Last Filed: 04/21/18 10:39> Date of Encounter: 04/21/18 Time of Encounter: 09:10 - Discharge Diagnosis (1) COPD exacerbation Priority: Primary Status: Acute (2) Hypoxia Priority: Primary Status: Resolved (3) Viral syndrome Priority: Primary Status: Acute (4) Chronic kidney disease, stage III (moderate) Priority: Secondary Status: Acute (5) Hypertension Priority: Primary Status: Acute Qualifiers: Hypertension type: essential hypertension Qualified Code(s): I10 - Essential (primary) hypertension (6) DVT prophylaxis Priority: Primary Status: Acute Hospital course: Ms. Solis is a 77 F with a PMH of HTN, HLD, CKD stage III, recent closed hip fracture that presented on 04/19/17 with shortness of breath. Her daughter states that last week on Tuesday/ patient reported having a sore throat. Patient states symptoms progressed to cough and SOB. She is not on home oxygen but daughter states she was prescribed home oxygen about 2-3 years ago but for a short while. She denied hx of COPD and has been a smoker for approx. 31 years. Patient states she has history asthma. In the ED, her WBC was normal. Renal function was also within normal limits. Chest x-ray revealed no acute abn ormality. Her UA did reveal possible trace of infection, however urine cultures revealed no growth. Her viral nasopharyngeal panel did reveal positive for Entero/Rhinovirus. Patient did present as hypoxemic and needed to be placed on oxygen via nasal cannula. Given her extensive history of smoking she was diagnosed with COPD exacerbation secondary to viral bronchitis infection. She was started on oral steroids (prednisone) as well as levaquin 500 mg. She received a single dose of methylprednisone while in the ED and received the a total of 2 doses of 40 mg prednisone subsequently. She also received 2 days of 500 mg levaquin. She was put on scheduled duonebs and albuterol PRN as well. Patient's status has significantly improved since admission. Her O2 saturation is at 94% on room air and her vitals are stable. Of note her HTN does seem to be uncontrolled. I increased her Norvasc medication from 5 to 10 mg daily and added lisinopril 40 mg to her home medication regimen. I also prescribed her symbicort to take at home daily for her COPD. Patient already has an albuterol which she takes as needed at home. I will also give her a 7 day prescription for levaquin for a total of 9 days to take. I will put her on a prednisone tapering regimen. Patient did not qualify for home oxygen therapy. Recommended to patient to obtain updated PFTs from PCP. She will need to follow-up with PCP in the next week. Warned her that if she experiences any increased shortness of breath, fever, or chest pain to return immediately to the ER. - Time Spent with Patient Total time spent providing and/or coordinating discharge services: Less than 30 minutes - Discharge Medications Prescriptions: RX: amLODIPine [Norvasc] 10 mg PO DAILY 30 Days #60 tablet Budesonide/Formoterol 80/4.5 [Symbicort] 2 puff IH BID 30 Days #1 inhaler Levofloxacin [Levaquin] 500 mg PO DAILY 7 Days #7 tablet RX: Lisinopril [Zestril] 40 mg PO DAILY 30 Days #30 tablet predniSONE [PredniSONE] 30 mg PO DAILY #22 tablet Home Medications: RX: Alendronate Sodium [Fosamax] 70 mg PO TU 11/30/16 [History] RX: BuPROPion SR (12 HR) [Wellbutrin SR] 150 mg PO BID 11/30/16 [History] RX: Buspirone HCl [Buspar] 10 mg PO BID 11/30/16 [History] RX: Furosemide [Lasix] 20 mg PO DAILY 11/30/16 [History] RX: Gabapentin [Neurontin] 300 mg PO [facility] 11/30/16 [History] RX: Losartan Potassium [Cozaar] 100 mg PO DAILY 11/30/16 [History] RX: Montelukast [Singulair] 10 mg PO HS 11/30/16 [History] RX: PARoxetine HCl [Paroxetine HCl] 40 mg PO HS 11/30/16 [History] RX: Simvastatin [Zocor] 20 mg PO HS 11/30/16 [History] RX: Cholecalciferol (Vitamin D3) [Vitamin D3] 4,000 unit PO HS 04/19/18 [History] RX: Gabapentin [Neurontin] 600 mg PO HS 04/19/18 [History] RX: Metoprolol Tartrate [Lopressor] 100 mg PO BID 04/19/18 [History] RX: Multivit-Min/FA/Lycopen/Lutein [Centrum Silver Men Tablet] 1 tab PO DAILY 04/19/18 [History] RX: Albuterol Sulfate [Albuterol Inhaler] 2 puff IH Q4H PRN 04/20/18 [History] RX: Hydrocodone/Acetaminophen [Mead 5-325 Tablet] 1 - 2 tab PO Q6H PRN 04/20/18 [History] Budesonide/Formoterol 80/4.5 [Symbicort] 2 puff IH BID 30 Days #1 inhaler 04/21/18 [Rx] Levofloxacin [Levaquin] 500 mg PO DAILY 7 Days #7 tablet 04/21/18 [Rx] RX: Lisinopril [Zestril] 40 mg PO DAILY 30 Days #30 tablet 04/21/18 [Rx] RX: amLODIPine [Norvasc] 10 mg PO DAILY 30 Days #60 tablet 04/21/18 [Rx] predniSONE [PredniSONE] 30 mg PO DAILY #22 tablet 04/21/18 [Rx] Allergies/Adverse Reactions: Allergy/AdvReac Type Severity Reaction Status Date / Time aspirin [ASA] AdvReac See Verified 02/04/18 12:10 Comments tramadol AdvReac See Verified 02/04/18 12:10 Comments Date of admission: 04/19/18 19:03 Primary care physician: Nabil Hodge MD Consults: 04/19/18 19:03 Consult to Nurse Navigator [CONS] Routine Comment: Discharging clinician: Naveed Lou Anticipated date of discharge: 04/21/18 - Constitutional Vitals: Temp Pulse Resp BP Pulse Ox 97.9 F 69 14 166/84 94 04/21/18 06:40 04/21/18 06:40 04/21/18 06:40 04/21/18 06:40 04/21/18 06:40 General appearance: Present: A&O X 3, no acute distress, answers questions appropriately - Respiratory Respiratory exam: Present: CTAB, wheezes (Minor end expiratory wheezing b/l). Absent: accessory muscle use, rales, respiratory distress, rhonchi, tachypnea - Cardiovascular Cardiovascular exam: Present: RRR, +S1, +S2. Absent: diastolic murmur, gallop, rubs, systolic murmur - GI/Abdominal GI/Abdominal exam: Present: normal bowel sounds, soft, no peritoneal signs. Absent: distended, guarding, rebound, tenderness - Extremities Exam Extremities exam: Present: normal capillary refill, warm, radial pulses palpable and symmetrical. Absent: calf tenderness, cyanotic, pedal edema, tenderness - Patient Status Disposition: Home, Self-Care Condition: Good Functional capacity at discharge: independent ambulation Overall status at discharge: patient is progressing back to baseline - Discharge Instructions Instructions: Lisinopril (By mouth), Prednisone (By mouth), Amlodipine (By mouth), Levofloxacin (By mouth), Budesonide/Formoterol (By breathing) Follow Up With: Nabil Hodge MD [Primary Care Provider] - 04/27/18 11:00 am () - Diet and Activity Activity: resume usual activities as tolerated Diet: low fat, low cholesterol, low salt diet <Thallapanmahendra,Rambabu - Last Filed: 04/21/18 11:40> Date of Encounter: 04/21/18 Hospital course: Ms. Solis is a 77 year old female - Time Spent with Patient Total time spent providing and/or coordinating discharge services: Date of admission: 04/19/18 19:03 Primary care physician: Nabil Hodge MD Consults: 04/19/18 19:03 Consult to Nurse Navigator [CONS] Routine Comment: - Constitutional Vitals: Temp Pulse Resp BP Pulse Ox 97.9 F 69 16 166/84 95 04/21/18 06:40 04/21/18 06:40 04/21/18 10:40 04/21/18 06:40 04/21/18 10:40 - Attending Attestation I examined this patient and my medical decision-making was reviewed with the Resident Physician Dr. Lou . I agree with the documented findings, disposition and treatment plan as described except to the extent set forth below. Ms. Solis is a 77 year old female with past medical history of HTN, HLD, CKD st age III and chronic smoker pt presented to ER with worsening SOB and cough with expectoration. She was admitted in the hospital for acute hypoxic respiratory failure and stupid exacerbation. Pt was started on systemic steroids and empirical abx. Her resp viral panel came back as positive for Rhino virus. Pt states she is feeling better today. She is breathing comfortably on RA. She wanted to go home today Gen: A, A, O x 3 Chest: Diminished BS b/l , mild wheezing, no crackles, no rales. 1. Acute COPD exacerbation 2. Acute hypoxic resp distress 3. Acute entro / rhino virus bronchitis 4. Chronic tobacco dependence improved medically stable to d/c home today with PO Abx Levaquin and PO Steroids. Counseled to quit smoking.
--- NOTE | 2018-04-21 13:32 | Physician Discharge Referral ---
Home Health/Hosp Referral Info Transfer to: Home Health Provider in Charge Post Discharge: PCP - Diagnosis (1) COPD exacerbation Priority: Primary Status: Acute (2) Hypoxia Priority: Primary Status: Resolved - Respiratory Orders Smoking Cessation: Smoking cessation has been advised. For more information, call the [place] Tobacco Quit Line at 1-353-JPGE-NOW. - Transfer Medications Prescriptions: amLODIPine [Norvasc] 10 mg PO DAILY 30 Days #60 tablet Budesonide/Formoterol 80/4.5 [Symbicort] 2 puff IH BID 30 Days #1 inhaler Levofloxacin [Levaquin] 500 mg PO DAILY 7 Days #7 tablet Lisinopril [Zestril] 40 mg PO DAILY 30 Days #30 tablet predniSONE [PredniSONE] 30 mg PO DAILY #22 tablet Home Medications: Alendronate Sodium [Fosamax] 70 mg PO TU 11/30/16 [History] BuPROPion SR (12 HR) [Wellbutrin SR] 150 mg PO BID 11/30/16 [History] Buspirone HCl [Buspar] 10 mg PO BID 11/30/16 [History] Furosemide [Lasix] 20 mg PO DAILY 11/30/16 [History] Gabapentin [Neurontin] 300 mg PO QA 11/30/16 [History] Losartan Potassium [Cozaar] 100 mg PO DAILY 11/30/16 [History] Montelukast [Singulair] 10 mg PO HS 11/30/16 [History] PARoxetine HCl [Paroxetine HCl] 40 mg PO HS 11/30/16 [History] Simvastatin [Zocor] 20 mg PO HS 11/30/16 [History] Cholecalciferol (Vitamin D3) [Vitamin D3] 4,000 unit PO HS 04/19/18 [History] Gabapentin [Neurontin] 600 mg PO HS 04/19/18 [History] Metoprolol Tartrate [Lopressor] 100 mg PO BID 04/19/18 [History] Multivit-Min/FA/Lycopen/Lutein [Centrum Silver Men Tablet] 1 tab PO DAILY 04/19/18 [History] Albuterol Sulfate [Albuterol Inhaler] 2 puff IH Q4H PRN 04/20/18 [History] Hydrocodone/Acetaminophen [Seligman 5-325 Tablet] 1 - 2 tab PO Q6H PRN 04/20/18 [History] Budesonide/Formoterol 80/4.5 [Symbicort] 2 puff IH BID 30 Days #1 inhaler 04/21/18 [Rx] Levofloxacin [Levaquin] 500 mg PO DAILY 7 Days #7 tablet 04/21/18 [Rx] Lisinopril [Zestril] 40 mg PO DAILY 30 Days #30 tablet 04/21/18 [Rx] amLODIPine [Norvasc] 10 mg PO DAILY 30 Days #60 tablet 04/21/18 [Rx] predniSONE [PredniSONE] 30 mg PO DAILY #22 tablet 04/21/18 [Rx] Allergies/Adverse Reactions: Allergy/AdvReac Type Severity Reaction Status Date / Time aspirin [ASA] AdvReac See Verified 02/04/18 12:10 Comments tramadol AdvReac See Verified 02/04/18 12:10 Comments Certification: Further, I certify that my clinical findings support that this patient is homebound (i.e. absences from home require considerable and taxing effort and are for medical reasons or bahai services or infrequently or short duration when for other reasons) because: Homebound Reason: Patient requires assistance of a person or device to safely leave home Attestation: My signature below is to certify that this patient is under my care and that I, or nurse practitioner, or a physician's clinical assistant working with me, has a [id number] encounter with this patient.
--- NOTE | 2018-04-21 13:40 | Physician Discharge Referral ---
Home Health/Hosp Referral Info Transfer to: Home Health Provider in Charge Post Discharge: PCP - Diagnosis (1) COPD exacerbation Status: Acute (2) Hypoxia Status: Resolved - Respiratory Orders Smoking Cessation: Smoking cessation has been advised. For more information, call the [place] Tobacco Quit Line at 6-402-AJLK-NOW. - Services Needed Following services are medically necessary services: Nursing, Home Health Aide - Transfer Medications Prescriptions: amLODIPine [Norvasc] 10 mg PO DAILY 30 Days #60 tablet Budesonide/Formoterol 80/4.5 [Symbicort] 2 puff IH BID 30 Days #1 inhaler Levofloxacin [Levaquin] 500 mg PO DAILY 7 Days #7 tablet Lisinopril [Zestril] 40 mg PO DAILY 30 Days #30 tablet predniSONE [PredniSONE] 30 mg PO DAILY #22 tablet Home Medications: Alendronate Sodium [Fosamax] 70 mg PO TU 11/30/16 [History] BuPROPion SR (12 HR) [Wellbutrin SR] 150 mg PO BID 11/30/16 [History] Buspirone HCl [Buspar] 10 mg PO BID 11/30/16 [History] Furosemide [Lasix] 20 mg PO DAILY 11/30/16 [History] Gabapentin [Neurontin] 300 mg PO [facility] 11/30/16 [History] Losartan Potassium [Cozaar] 100 mg PO DAILY 11/30/16 [History] Montelukast [Singulair] 10 mg PO HS 11/30/16 [History] PARoxetine HCl [Paroxetine HCl] 40 mg PO HS 11/30/16 [History] Simvastatin [Zocor] 20 mg PO HS 11/30/16 [History] Cholecalciferol (Vitamin D3) [Vitamin D3] 4,000 unit PO HS 04/19/18 [History] Gabapentin [Neurontin] 600 mg PO HS 04/19/18 [History] Metoprolol Tartrate [Lopressor] 100 mg PO BID 04/19/18 [History] Multivit-Min/FA/Lycopen/Lutein [Centrum Silver Men Tablet] 1 tab PO DAILY 04/19/18 [History] Albuterol Sulfate [Albuterol Inhaler] 2 puff IH Q4H PRN 04/20/18 [History] Hydrocodone/Acetaminophen [Golden 5-325 Tablet] 1 - 2 tab PO Q6H PRN 04/20/18 [History] Budesonide/Formoterol 80/4.5 [Symbicort] 2 puff IH BID 30 Days #1 inhaler 04/21/18 [Rx] Levofloxacin [Levaquin] 500 mg PO DAILY 7 Days #7 tablet 04/21/18 [Rx] Lisinopril [Zestril] 40 mg PO DAILY 30 Days #30 tablet 04/21/18 [Rx] amLODIPine [Norvasc] 10 mg PO DAILY 30 Days #60 tablet 04/21/18 [Rx] predniSONE [PredniSONE] 30 mg PO DAILY #22 tablet 04/21/18 [Rx] Allergies/Adverse Reactions: Allergy/AdvReac Type Severity Reaction Status Date / Time aspirin [ASA] AdvReac See Verified 02/04/18 12:10 Comments tramadol AdvReac See Verified 02/04/18 12:10 Comments Certification: Further, I certify that my clinical findings support that this patient is h omebound (i.e. absences from home require considerable and taxing effort and are for medical reasons or uatsdin services or infrequently or short duration when for other reasons) because: Homebound Reason: Patient requires assistance of a person or device to safely leave home Attestation: My signature below is to certify that this patient is under my care and that I, or nurse practitioner, or a physician's legal administrative assistant working with me, has a [id number] encounter with this patient.
== END 2018-04-21 12:03 | disposition home or self-care (01) | DRG 190 ==
LOC: EMEROOARM 12:48 → 3BNU 12:48 → SUATTDRO 19:03
PROVIDERS: ADMIT Hospitalist; ATTEND Family Medicine

== ENCOUNTER 2018-08-08 17:24 | Inpatient (IN) ==
[2018-08-08] MEDS ORDERED: 0.9 % Sodium Chloride 1,000 ML IVC ONE ×2 (17:49→18:00)
[2018-08-08] MEDS ORDERED: 0.9 % Sodium Chloride 1,000 ML IVC SCH (18:00)
--- NOTE | 2018-08-08 18:18 | Emergency Department Note ---
Disposition Clinical Impression: Elevated troponin Community acquired pneumonia Qualifiers: Laterality: right Lung location: upper lobe of lung Qualified Code(s): J18.1 - Lobar pneumonia, unspecified organism Disposition: Admitted As Inpatient Condition: Fair Time of Disposition: 20:01 General Adult HPI - General Chief complaint: ED Fever Stated complaint: AMS,LAKE,Slurred Speech Time Seen by Provider: 08/08/18 17:48 Source: patient, family, EMS Mode of arrival: ambulatory Limitations: no limitations Nursing Notes Reviewed: Yes Vital Signs Reviewed: Yes - History of Present Illness HPI Narrative: 77-year-old female presents to the emergency department with confusion and fever and cough. She has a history of hypertension as well as history pneumonia and multiple orthopedic surgeries. She presents here with new onset confusion beginning on . Familythat she is below more confused andslurred speech that started on . Presently gotten worse. Today they noticed that it has came and gone were last about 2030 minutes and then will go away. She has noted a cough she does not know any dysuria there has been mild sputum production. There is no abdominal pain back pain there is no chest pain. She also did she said body aches. They have not noticed fevers at home. They have noticed a slurring of the speech mild confusion no noticeable focal deficits oth erwise. She is complaining of headache describing 8 out of 10 in the front of her head radiating to the back. There is no auras or photophobia. She has no neck pain. Otherwise patient is no other complaints at this time. Pain Scale: 8 - Related Data Home Medications Medication Instructions Recorded Confirmed Alendronate Sodium [Fosamax] 70 mg PO TU 11/30/16 08/08/18 BuPROPion SR (12 HR) [Wellbutrin 150 mg PO BID 11/30/16 08/08/18 SR] Furosemide [Lasix] 20 mg PO DAILY 11/30/16 08/08/18 Gabapentin [Neurontin] 300 mg PO QAM 11/30/16 08/08/18 Montelukast [Singulair] 10 mg PO HS 11/30/16 08/08/18 PARoxetine HCl [Paroxetine HCl] 40 mg PO HS 11/30/16 08/08/18 Simvastatin [Zocor] 20 mg PO HS 11/30/16 08/08/18 Cholecalciferol (Vitamin D3) 4,000 unit PO DAILY 04/19/18 08/08/18 [Vitamin D3] Gabapentin [Neurontin] 600 mg PO HS 04/19/18 08/08/18 Metoprolol Tartrate [Lopressor] 100 mg PO BID 04/19/18 08/08/18 Multivit-Min/FA/Lycopen/Lutein 1 tab PO DAILY 04/19/18 08/08/18 [Centrum Silver Men Tablet] Albuterol Sulfate [Albuterol 2 puff IH Q4H PRN 04/20/18 08/08/18 Inhaler] Hydrocodone/Acetaminophen [[place] 1 - 2 tab PO Q6H PRN 04/20/18 08/08/18 5-325 Tablet] Budesonide/Formoterol 160/4.5 2 puff IH BIDR 08/08/18 08/08/18 [Symbicort 160/4.5] Lisinopril [Zestril] 40 mg PO DAILY 08/08/18 08/08/18 Melatonin 10 mg PO HS 08/08/18 08/08/18 amLODIPine [Norvasc] 5 mg PO DAILY 08/08/18 08/08/18 Allergies Allergy/AdvReac Type Severity Reaction Status Date / Time aspirin [ASA] AdvReac See Verified 02/04/18 12:10 Comments tramadol AdvReac See Verified 02/04/18 12:10 Comments All systems ED: reviewed and negative except as stated. Review of Systems: As Per HPI Past Medical History - Past Medical History Attestation: Yes The following information was validated with the patient. Source: patient Medical history: Reports: arthritis, asthma, CHF, COPD, hyperlipidemia, hypertension Surgical history: Reports: hip replacement, knee replacement, orthopedic, other Psychiatric history: Reports: anxiety, depression - Social History Smoking Status: Current every day smoker Smokeless Tobacco Status: No Alcohol use: Reports: none Drug use: Reports: none Physical Exam - General Limitations: altered mental status General appearance: alert, in no apparent distress - Head Head exam: atraumatic, normocephalic, normal inspection - Eye Eye exam: Present: normal appearance, PERRL, EOMI - ENT ENT exam: normal exam, normal oropharynx, mucous membranes moist - Neck Neck exam: Present: normal inspection, full ROM, trachea midline - Chest Chest inspection: Present: normal inspection, symmetric chest wall rise - Respiratory Respiratory exam: Present: normal lung sounds bilaterally - Cardiovascular Cardiovascular exam: Present: regular rate, normal rhythm, normal heart sounds - Abdominal Exam Abdominal exam: Present: soft, Non-Tender, normal bowel sounds. Absent: tenderness, distention, guarding, rebound, rigidity - Extremities Exam Extremities exam: Present: normal inspection, full ROM. Absent: tenderness, pedal edema - Back Exam Back exam: Present: normal inspection, full ROM. Absent: tenderness, CVA tenderness (R), CVA tenderness (L) - Neurological Exam Neurological exam: Present: alert, oriented X3 - Skin Skin exam: Present: warm, dry, intact, normal color Course Course Narrative: 77-year-old female process the emergency department complaining of headache and fever and general body aches. We will give broad workup including CBC and chest x-ray BMP troponin and EKG we will also get a head CT due to the headache will also get blood cultures including lactate as well as urinalysis. Patient given Tylenol as well as IV fluids. Disposition is pending results of this time. NIH score was 0 when I evaluated her patient is outside the window for slurred speech and confusion to be a stroke alert as it happened partially 4 days ago. No stroke alert was called there are no signs or focal deficits at this time a stroke. Vital Signs Temperature 101.6 F H 08/08/18 17:46 Pulse Rate 116 08/08/18 17:46 Respiratory Rate 20 08/08/18 17:46 Blood Pressure 148/80 08/08/18 17:46 O2 Sat by Pulse Oximetry 93 08/08/18 17:46 Temperature 101.6 F H 08/08/18 17:46 Pulse Rate 114 08/08/18 18:59 Respiratory Rate 18 08/08/18 18:59 Blood Pressure 101/86 08/08/18 18:59 O2 Sat by Pulse Oximetry 91 08/08/18 18:59 Oxygen Delivery Oxygen Delivery Nasal Cannula Medical Decision Making - MDM Narrative Medical decision making narrative: 77-year-old female presented to the emergency department with altered mental status, slurred speech as well as a headache. Patient also had a fever and she arrived. I did do an NIH scale of her which was 0. Last known well was patient did not meet stroke alert criteria. This seemed to be more like infection causing her altered mental status. For me she was not altered and alert and oriented 3 no focal deficits no slurred speech. Patient did have a right upper lobe pneumonia on chest x-ray also had a very elevated white blood cell count with a left shift. She has had a fever was treated with Tylenol. After receiving the Tylenol her headache nearly went away. She has been sitting at 90% well on 4 L oxygen via nasal cannula which is abnormal for she normally is not on oxygen. Patient been stable she has been here the entire time. Did give 1 L of IV fluids. I do not want the patient to CHF fluid overloaded so did not give her the full 30 mL/kg bolus. She is not in severe sepsis or septic shock at this time. I think 1 L is adequate after that we will start patient on 1 mL/kg drip of IV fluids. We will treat patient with azithromycin and ceftriaxone IV. Patient stable this time she is not currently hypoxic stand 90% while on the 4 L. She have elevated troponin of 0.04 think is due to the sepsis among is heparinize the patient she does not currently have any chest pain at this time. I do for cancer with patient get admitted and family also agrees to that plan. Spoke with the hospitalist Dr. Licea who agreed to admit the patient to their service. Patient is admitted in stable condition. Chest X-Ray 08/08/18 17:48 IMPRESSION: Right lung consolidation likely pneumonia. Recommend follow-up to exclude an underlying lesion. D/ / 08/08/2018 18:44:45 [email or web address] Interpreting Provider: Sidney Morin MD Head CT 08/08/18 17:48 IMPRESSION: 1. No acute intracranial abnormality. D/ / Kennedy Singh MD / Kennedy Singh MD Interpreting Provider: Kennedy Singh MD - Medical Records Medical records reviewed: Yes I reviewed the patient's medical records. - Lab Data Lab results reviewed: Yes I reviewed the patient's lab results. Result diagrams: 08/08/18 18:28 08/08/18 18:28 Lab Results 08/08/18 08/08/18 08/08/18 Range/Units 18:28 18:28 18:28 WBC 35.0 H* (4.3-11.1) K/mcL RBC 4.12 (3.82-4.97) M/mcL Hgb 11.7 (11.5-15.4) g/dL Hct 38.2 (35.3-44.9) % MCV 92.7 (83.0-100.0) fL MCH 28.4 (28.0-33.3) pg MCHC 30.6 L (31.6-35.5) g/dL RDW 14.6 H (11.5-14.5) % Plt Count 190 (140-400) K/mcL MPV 11.7 (9.4-12.4) fL Immature Gran % 3.1 (0-4) % Seg Neutrophils % 88.2 % Lymphocytes % 1.5 % Monocytes % 6.9 % Eosinophils % 0.0 % Basophils % 0.3 % Neutrophils # 30.9 H (1.6-8.9) K/mcL Lymphocytes # 0.5 L (0.6-4.6) K/mcL Monocytes # 2.4 H (0.0-1.3) K/mcL Eosinophils # 0.0 (0.0-0.6) K/mcL Basophils # 0.1 (0.0-0.2) K/mcL Nucleated RBCs/100 WBC 0.2 H (0) /100 WBC Platelet Estimate Normal (Normal) Large Platelets Present A (Not Present) Sodium 135 L (136-145) mEq/L Potassium 3.6 (3.5-5.1) mEq/L Chloride 98 (98-107) mEq/L Carbon Dioxide 22 L (23-29) mEq/L BUN 21 (8-23) mg/dL Creatinine 0.98 (0.60-1.20) mg/dL Est GFR ( Amer) > 60 (> 60) Est GFR (Non-Af Amer) 55 L (> 60) BUN/Creatinine Ratio 21 (6-26) Glucose 138 H (70-105) mg/dL Calculated Osmolality 285 (280-300) Lactic Acid (0.5-2.2) mmol/L Calcium 9.7 (8.6-10.3) mg/dL Total Bilirubin 0.7 (0.3-1.0) mg/dL Direct Bilirubin 0.2 (0.0-0.2) mg/dL Indirect Bilirubin 0.5 (0.0-1.2) mg/dL AST 36 (13-39) Units/L ALT 18 (7-52) Units/L Alkaline Phosphatase 105 H (34-104) Units/L Ammonia 37 (16-53) mcmol/L Creatine Kinase 779 H (30-223) Units/L Troponin I 0.04 H* (< 0.04) ng/mL Serum Total Protein 6.5 (6.4-8.9) g/dL Albumin 3.8 (3.5-5.7) g/dL Globulin 2.7 (2.4-3.5) g/dL Albumin/Globulin Ratio 1.4 (1.1-2.2) TSH 0.423 (0.340-5.600) mcIU/mL Ethyl Alcohol < 10 (Less than 10) mg/dL 08/08/18 Range/Units 18:28 WBC (4.3-11.1) K/mcL RBC (3.82-4.97) M/mcL Hgb (11.5-15.4) g/dL Hct (35.3-44.9) % MCV (83.0-100.0) fL MCH (28.0-33.3) pg MCHC (31.6-35.5) g/dL RDW (11.5-14.5) % Plt Count (140-400) K/mcL MPV (9.4-12.4) fL Immature Gran % (0-4) % Seg Neutrophils % % Lymphocytes % % Monocytes % % Eosinophils % % Basophils % % Neutrophils # (1.6-8.9) K/mcL Lymphocytes # (0.6-4.6) K/mcL Monocytes # (0.0-1.3) K/mcL Eosinophils # (0.0-0.6) K/mcL Basophils # (0.0-0.2) K/mcL Nucleated RBCs/100 WBC (0) /100 WBC Platelet Estimate (Normal) Large Platelets (Not Present) Sodium (136-145) mEq/L Potassium (3.5-5.1) mEq/L Chloride (98-107) mEq/L Carbon Dioxide (23-29) mEq/L BUN (8-23) mg/dL Creatinine (0.60-1.20) mg/dL Est GFR ( Amer) (> 60) Est GFR (Non-Af Amer) (> 60) BUN/Creatinine Ratio (6-26) Glucose (70-105) mg/dL Calculated Osmolality (280-300) Lactic Acid 1.3 (0.5-2.2) mmol/L Calcium (8.6-10.3) mg/dL Total Bilirubin (0.3-1.0) mg/dL Direct Bilirubin (0.0-0.2) mg/dL Indirect Bilirubin (0.0-1.2) mg/dL AST (13-39) Units/L ALT (7-52) Units/L Alkaline Phosphatase (34-104) Units/L Ammonia (16-53) mcmol/L Creatine Kinase (30-223) Units/L Troponin I (< 0.04) ng/mL Serum Total Protein (6.4-8.9) g/dL Albumin (3.5-5.7) g/dL Globulin (2.4-3.5) g/dL Albumin/Globulin Ratio (1.1-2.2) TSH (0.340-5.600) mcIU/mL Ethyl Alcohol (Less than 10) mg/dL - Radiology Data Radiology results reviewed: Yes I reviewed the patient's radiology results. - EKG Data EKG #1 EKG attestation: Yes I reviewed and interpreted this EKG. EKG results narrative: EKG done at 1723 review myself and the attending shows sinus tachycardia rate of 114, WA interval 109, QRS 100, QTC 423. There is no acute ST changes no acute T-wave changes nor sent ischemia. No signs of hypertrophy, heart rate 1 heart block. No WPW/creatinine/HOCM. EKG unchanged other than tachycardia based on old EKG done 04/19/18 Attestation Statement - Attestation Attestation: Resident Attestation: I examined this patient and my medical decision making was reviewed with the Resident Physician. I agree with the documented findings, disposition and treatment plan as described except to the extent set forth below. We independently had [id number] contact with the patient. Patient presenting to the emergency department for evaluation of confusion. Confusion noted by family starting on . Patient without focal deficits. Patient post her name where she is at was with her. Patient was found to be febrile. Patient was found to be hypoxic in the low 80s. The patient has no specific focal findings on lung exam. Patient states she overall feels significantly better on oxygen. She is requiring approximately 4 L to keep her in the low 90s. Patient will undergo further evaluation for pneumonia as well as other causes of altered mental status. Patient was found to have significant pneumonia. Patient's fever, hypoxia and altered mental status are likely result from pneumonia infection. Patient will need continued monitoring as well as admission.
[2018-08-08] MEDS ORDERED: Ipratropium/Albuterol Neb 3 ML IH ONE (18:28)
[2018-08-08 18:46] LABS: Hemoglobin 11.7 g/dL (11.5-15.4); Mean Corpuscular Volume 92.7 fL (83.0-100.0); Red Cell Distribution Width 14.6 % (11.5-14.5)
[2018-08-08 18:47] LABS: Basophils # 0.1 K/mcL (0.0-0.2); Basophils % 0.3 %; Hematocrit 38.2 % (35.3-44.9); Immature Granulocytes % 3.1 % (0-4); Lymphocytes # 0.5 K/mcL (0.6-4.6); Lymphocytes % 1.5 %; Mean Corpuscular HGB Conc 30.6 g/dL (31.6-35.5); Mean Corpuscular Hemoglobin 28.4 pg (28.0-33.3); Mean Platelet Volume 11.7 fL (9.4-12.4); Monocytes # 2.4 K/mcL (0.0-1.3); Monocytes % 6.9 %; Neutrophils # 30.9 K/mcL (1.6-8.9); Nucleated Red Blood Cells 0.2 /100 WBC (0); Platelet Count 190 K/mcL (140-400); Red Blood Count 4.12 M/mcL (3.82-4.97); Segmented Neutrophils % 88.2 %
[2018-08-08 19:08] LABS: Troponin I 0.04 ng/mL (< 0.04)
[2018-08-08 19:13] LABS: Platelet Estimate Normal (Normal)
[2018-08-08 19:14] LABS: Large Platelets Present (Not Present)
[2018-08-08] MEDS ORDERED: Azithromycin 500 MG in D5% in Water 250 ML IVPB ONE (19:14)
[2018-08-08] MEDS ORDERED: cefTRIAXone 1,000 MG in Water for inj. (sterile) 20 ML 10 ML IVP ONE (19:14)
[2018-08-08 19:22] LABS: Alanine Aminotransferase 18 Units/L (7-52); Albumin 3.8 g/dL (3.5-5.7); Albumin/Globulin Ratio 1.4 (1.1-2.2); Alkaline Phosphatase 105 Units/L (34-104); Aspartate Amino Transferase 36 Units/L (13-39); BUN/Creatinine Ratio 21 (6-26); Bilirubin,Direct 0.2 mg/dL (0.0-0.2); Bilirubin,Indirect 0.5 mg/dL (0.0-1.2); Bilirubin,Total 0.7 mg/dL (0.3-1.0); Blood Urea Nitrogen 21 mg/dL (8-23); Calcium 9.7 mg/dL (8.6-10.3); Carbon Dioxide 22 mEq/L (23-29); Chloride 98 mEq/L (98-107); Creatine Kinase 779 Units/L (30-223); Ethanol < 10 mg/dL (Less than 10); Globulin 2.7 g/dL (2.4-3.5); Glucose 138 mg/dL (70-105); Osmolality,Calculated 285 (280-300); Potassium 3.6 mEq/L (3.5-5.1); Sodium 135 mEq/L (136-145); Thyroid Stimulating Hormone 0.423 mcIU/mL (0.340-5.600); Total Protein 6.5 g/dL (6.4-8.9); eGFR For Non-African Americans 55 (> 60)
[2018-08-08] MEDS ORDERED: Naloxone 0.4 MG/ML INJ IVP PRN (22:32)
--- NOTE | 2018-08-08 22:32 | Internal Med History&Physical ---
<Vijay Robertson S - Last Filed: 08/09/18 01:24> Date of Encounter: 08/09/18 Time of Encounter: 23:17 Internal Medicine - H&P: HPI Chief complaint: acting strange Admitted From: Home Plans for Post Hospital Care: Home History of present illness: Ms. Solis is a 77 year old female with PMH of COPD not on home oxygen, arthritis, HTN, HLD, and CHF. She presents to the ER today with family. There was reported confusion by the daughter that started Tuesday. The confusion waxed and waned and she was starting to act like the was getting better but today became very confused again. There were subjective fevers, family did not take temperature. Pt reports a mild cough. She has had increasing chest congestion bu t denies an increase in sputum production or change in color. Family report that she has had some slurred speech that would come and go. Pt has had some mild body aches. Denies any urinary symptoms or back pain. She also did complain of a headache to the ER resident, which she states got much better after getting some medication for it. She is otherwise without complaint. In the ER she was found to have suspected PNA on XR. She had an elevated white count and a mildly elevated troponin. She was given one time dose of rocephin/azithromycin for suspected CAP. She will be admitted for further e valuation and treatment. Past Med Surg Social Fam HX - Past Medical History Medical history: arthritis, asthma, CHF, COPD, hyperlipidemia, hypertension Additional medical history: patient reports she does not have CHF Psychiatric history: anxiety, depression - Past Surgical History Surgical History: hip replacement, knee replacement, orthopedic, other Additional surgical history: left hip, left shoulder, german knee replacement, back surgery x4 - Social History Smoking Status: Former smoker Smokeless Tobacco Status: No Alcohol use: none Drug use: none - Family History Mother Living Status: Father Living Status: Internal Medicine - H&P: Meds Alendronate Sodium [Fosamax] 70 mg PO TU 11/30/16 [History] BuPROPion SR (12 HR) [Wellbutrin SR] 150 mg PO BID 11/30/16 [History] Furosemide [Lasix] 20 mg PO DAILY 11/30/16 [History] Gabapentin [Neurontin] 300 mg PO QAM 09/05/17 [History] Montelukast [Singulair] 10 mg PO HS 11/30/16 [History] PARoxetine HCl [Paroxetine HCl] 40 mg PO HS 11/30/16 [History] Simvastatin [Zocor] 20 mg PO HS 11/30/16 [History] Cholecalciferol (Vitamin D3) [Vitamin D3] 4,000 unit PO DAILY 04/19/18 [History] Gabapentin [Neurontin] 600 mg PO HS 04/19/18 [History] Metoprolol Tartrate [Lopressor] 100 mg PO BID 04/19/18 [History] Multivit-Min/FA/Lycopen/Lutein [Centrum Silver Men Tablet] 1 tab PO DAILY 04/19/18 [History] Albuterol Sulfate [Albuterol Inhaler] 2 puff IH Q4H PRN 04/20/18 [History] Hydrocodone/Acetaminophen [[employer] 5-325 Tablet] 1 - 2 tab PO Q6H PRN 04/20/18 [History] Budesonide/Formoterol 160/4.5 [Symbicort 160/4.5] 2 puff IH BIDR 08/08/18 [History] Lisinopril [Zestril] 40 mg PO DAILY 08/08/18 [History] Melatonin 10 mg PO HS 08/08/18 [History] amLODIPine [Norvasc] 5 mg PO DAILY 08/08/18 [History] Allergy/AdvReac Type Severity Reaction Status Date / Time aspirin [ASA] AdvReac See Verified 02/04/18 12:10 Comments tramadol AdvReac See Verified 02/04/18 12:10 Comments All Systems PM: A 10-system review of systems was performed and is negative for pertinent findings except as documented above in the HPI. - Constitutional Constitutional: chills, fever(s) - EENT Eyes: no blurry vision, no change in vision Ears: no tinnitus - Cardiovascular Cardiovascular ROS IM: dyspnea, dyspnea on exertion, no chest pain, no palpitations - Respiratory Respiratory: cough, dyspnea, dyspnea on exertion, chest congestion, no hemoptysis - Gastrointestinal Gastrointestinal: no abdominal pain, no diarrhea, no nausea, no vomiting - Integumentary Integumentary IM: no rash, no skin ulcer - Psychiatric Psychiatric: anxiety, confusion - Endocrine Endocrine IM: fatigue - Hematologic/Lymphatic Hematologic/Lymphatic: no easy bleeding, no easy bruising - Constitutional Vitals: Temp Pulse Resp BP Pulse Ox 98.9 F 105 18 113/81 91 08/08/18 22:06 08/08/18 22:06 08/08/18 21:29 08/08/18 22:06 08/08/18 22:11 Exam: general - aox3, NAD, laying in bed without distress heent - mmm,ncat, no scleral icterus neck - tracheal midline cardio - tacycardia, s1s2, cta no mrg lungs - decreased breath sounds on the right, no respiratory distress abd - soft, nontender, nondistended, no rebound or guarding extremeties - moves all limbs equally without difficulty skin - warm,dry,intact neuro - no fnd, cn2-12 intact psych - appropriate mood/affect Internal Med - H&P Results - Labs CBC & Chem 7: 08/08/18 18:28 08/08/18 18:28 Labs: Short CBC 08/08/18 Range/Units 18:28 WBC 35.0 H* (4.3-11.1) K/mcL Hgb 11.7 (11.5-15.4) g/dL Hct 38.2 (35.3-44.9) % Plt Count 190 (140-400) K/mcL Neutrophils # 30.9 H (1.6-8.9) K/mcL BMP 08/08/18 18:28 Sodium 135 L Potassium 3.6 Chloride 98 Carbon Dioxide 22 L BUN 21 Creatinine 0.98 Glucose 138 H Calcium 9.7 Cardiac Enzymes 08/08/18 Range/Units 18:28 Troponin I 0.04 H* (< 0.04) ng/mL Liver Function 08/08/18 Range/Units 18:28 Total Bilirubin 0.7 (0.3-1.0) mg/dL Direct Bilirubin 0.2 (0.0-0.2) mg/dL AST 36 (13-39) Units/L ALT 18 (7-52) Units/L Alkaline Phosphatase 105 H (34-104) Units/L Albumin 3.8 (3.5-5.7) g/dL - Impressions ITS Impressions Chest X-Ray 08/08/18 17:48 IMPRESSION: Right lung consolidation likely pneumonia. Recommend follow-up to exclude an underlying lesion. D/ / 08/08/2018 18:44:45 Sidney Morin MD / [email or web address] Interpreting Provider: Sidney Morin MD Head CT 08/08/18 17:48 IMPRESSION: 1. No acute intracranial abnormality. D/ / Kennedy Singh MD / Kennedy Singh MD Interpreting Provider: Kennedy Sinhg MD - Assessment and Plan (1) COPD (chronic obstructive pulmonary disease) Current Visit: Yes Status: Acute Assessment and plan: AECOPD secondary to underlying PNA - likely CAP as pt has not had recent hospitalization in last 90 days or IV abx - has been having on and off feelings of "feeling ill" since Tuesday Meets 2/4 SIRS criteria for WBC and HR XR chest showed right lung consolidation likely pneumonia. Received rocephin/azithromycin x 1 in the ER PFT report from 05/11/2018 Spirometry shows mild to moderateairway obstructive pattern No response to inhaled bronchodilators is seen Flow Volume Loop: Obstructive This pulmonary function test suggestive of mixed obstructive and restrictive lung defect. Plan: - continue 100cc/hr 0.9% NS - continue azithromycin and rocephin day 1 - guafenisen BID - duonebs prn - blood cx pending - RIP pending - urine antigens pending - sputum cx pending - FEN: cardiac diet - DVT prophylaxis: sq heparin - consults: none - dispo: inatient tx with IV abx Qualifiers: COPD type: unspecified COPD Qualified Code(s): J44.9 - Chronic obstructive pulmonary disease, unspecified (2) Acute respiratory failure Current Visit: Yes Status: Acute Assessment and plan: Pt requiring 4-5 L of oxygen to maintain O2 sat. Does NOT wear oxygen at home. Qualifiers: Respiratory failure complication: hypoxia Qualified Code(s): J96.01 - Acute respiratory failure with hypoxia (3) CHF (congestive heart failure) Current Visit: No Status: Chronic Assessment and plan: NOT in acute exacerbation. ECHO report from 2014 showed LVEF 60% with mild LV diastolic dysfxn. Qualifiers: Heart failure type: diastolic Heart failure chronicity: chronic Qualified Code(s): I50.32 - Chronic diastolic (congestive) heart failure (4) Osteoporosis Current Visit: No Status: Chronic Assessment and plan: On bisphosphanate as an outpatient. chronic. Qualifiers: Osteoporosis type: unspecified Presence of current pathological fracture: unspecified Qualified Code(s): M81.0 - Age-related osteoporosis without current pathological fracture (5) Overweight (BMI 25.0-29.9) Current Visit: No Status: Chronic Assessment and plan: BMI 27.1, chronic, counseled. (6) Hypertension Current Visit: No Status: Chronic Assessment and plan: Chronic, con't home rx. Qualifiers: Hypertension type: essential hypertension Qualified Code(s): I10 - Essential (primary) hypertension (7) Dyslipidemia Current Visit: No Status: Chronic Assessment and plan: chronic, continue home meds. (8) DVT prophylaxis Current Visit: Yes Status: Acute Assessment and plan: sq heparin (9) Community acquired pneumonia Current Visit: Yes Status: Acute Assessment and plan: See above for COPD. Qualifiers: Laterality: right Lung location: upper lobe of lung Qualified Code(s): J18.1 - Lobar pneumonia, unspecified organism (10) Elevated troponin Current Visit: Yes Status: Acute Assessment and plan: Troponin 0.04, will trend x 3. Likely secondary to type 2 demand ischemia in the setting of sepsis. ECHO pending. (11) Elevated creatine kinase Current Visit: Yes Status: Acute Assessment and plan: Likely secondary to falls, CK 779. Renal fxn WNL. Will continue to monitor CK with morning labs. (12) Acute encephalopathy Current Visit: Yes Status: Acute Assessment and plan: Likely secondary to PNA. CT head negative for acute process. See plan as above for COPD. - Time Spent With Patient Total time spent is greater than 50% in coordination of care (as documented) at patient's floor/unit and/or counseling patient: 25 - 35 minutes <Mike Johnson - Last Filed: 08/09/18 04:12> Date of Encounter: 08/09/18 Internal Medicine - H&P: HPI History of present illness: Ms. Solis is a 77 year old female All Systems PM: A 10-system review of systems was performed and is negative for pertinent findings except as documented above in the HPI. - Constitutional Vitals: Temp Pulse Resp BP Pulse Ox 98.9 F 105 18 113/81 91 08/08/18 22:06 08/08/18 22:06 08/08/18 22:06 08/08/18 22:06 08/08/18 22:11 Internal Med - H&P Results - Labs CBC & Chem 7: 08/09/18 01:52 08/09/18 01:52 Labs: Short CBC 08/08/18 08/09/18 Range/Units 18:28 01:52 WBC 35.0 H* 32.2 H* (4.3-11.1) K/mcL Hgb 11.7 10.8 L (11.5-15.4) g/dL Hct 38.2 35.6 (35.3-44.9) % Plt Count 190 167 (140-400) K/mcL Neutrophils # 30.9 H (1.6-8.9) K/mcL BMP 08/08/18 08/09/18 18:28 01:52 Sodium 135 L 137 Potassium 3.6 3.4 L Chloride 98 100 Carbon Dioxide 22 L 28 BUN 21 20 Creatinine 0.98 0.94 Glucose 138 H 131 H Calcium 9.7 9.7 Cardiac Enzymes 08/08/18 08/09/18 Range/Units 18:28 01:52 Troponin I 0.04 H* 0.15 H* (< 0.04) ng/mL Liver Function 08/08/18 Range/Units 18:28 Total Bilirubin 0.7 (0.3-1.0) mg/dL Direct Bilirubin 0.2 (0.0-0.2) mg/dL AST 36 (13-39) Units/L ALT 18 (7-52) Units/L Alkaline Phosphatase 105 H (34-104) Units/L Albumin 3.8 (3.5-5.7) g/dL Urine 08/09/18 Range/Units 01:05 Urine Color Yellow (Yellow) Urine Clarity Clear (Clear) Urine pH 6.5 (5.0-8.0) pH Units Ur Specific [place] 1.010 (1.010-1.025) Urine Protein 30 H (Neg-Trace) mg/dL Urine Glucose (UA) Normal (Normal) mg/dL - Impressions ITS Impressions Chest X-Ray 08/08/18 17:48 IMPRESSION: Right lung consolidation likely pneumonia. Recommend follow-up to exclude an underlying lesion. D/ / 08/08/2018 18:44:45 Sidney Morin MD / doc Interpreting Provider: Sidney Morin MD Head CT 08/08/18 17:48 IMPRESSION: 1. No acute intracranial abnormality. D/ / Kennedy Singh MD / Kennedy Singh MD Interpreting Provider: Kennedy Singh MD - Time Spent With Patient Total time spent is greater than 50% in coordination of care (as documented) at patient's floor/unit and/or counseling patient: - Attending Attestation I saw and evaluated the patient. I reviewed the residents note, performed my own physical examination and agree with findings and plan as documented in the residents note. Patient seen and examined on 08/09/18. Patient presented with pneumonia sepsis with elevated white count, heart rate and initial temperature of 101.6 in the ER. Patient found to have a right lung pneumonia. Upon my exam patient not confused, A&Ox3. No acute distress. Patient had slightly elevated troponin of 0.04, which bumped up again to 0.15 on repeat. We will start heparin drip and follow up with repeat troponins and echo in the morning. Patient denies chest pain. Continue a ntibiotics for pneumonia.
[2018-08-08] MEDS ORDERED: *HR* Heparin 5,000 UNIT/ML VIAL SQ SCH (22:45)
[2018-08-08] MEDS ORDERED: Ipratropium/Albuterol Neb 3 ML IH PRN (22:51)
[2018-08-08] MEDS: 0.9 % Sodium Chloride 1,000 ML IVC SCH (23:01)
[2018-08-09 01:28] LABS: Bilirubin,Urine Negative (Negative); Blood,Urine Trace (Negative); Clarity,Urine Clear (Clear); Color,Urine Yellow (Yellow); Glucose,Urine (UA) Normal (Normal); Ketones,Urine Negative (Negative); Leukocyte Esterase,Urine Moderate (Negative); Nitrite,Urine Negative (Negative); PH,Urine 6.5 pH Units (5.0-8.0); Protein,Urine 30 mg/dL (Neg-Trace); Urobilinogen,Urine Normal (Normal)
[2018-08-09 01:30] LABS: Bacteria,Urine None Seen per hpf (None-Few); Hyaline Casts,Urine None Seen per lpf (None-Few); Squamous Epithelial Cell,Urine Many per lpf (None-Few)
[2018-08-09 01:38] LABS: Amphetamine Screen,Urine Negative ng/mL (Cutoff=1000); Barbiturate Screen,Urine Negative ng/mL (Cutoff=200); Benzodiazepines Screen,Urine Negative ng/mL (Cutoff=200); Cannabinoid Screen,Urine Negative ng/mL (Cutoff = 50); Cocaine Screen,Urine Negative ng/mL (Cutoff= 300); Opiate Screen,Urine Positive ng/mL (Cutoff=300); Phencyclidine Screen,Urine Negative ng/mL (Cutoff=25)
[2018-08-09 01:51] LABS: RBC,Urine 0-3 per hpf (0-3)
[2018-08-09 02:54] LABS: Hemoglobin 10.8 g/dL (11.5-15.4)
[2018-08-09 02:56] LABS: Hematocrit 35.6 % (35.3-44.9); Mean Corpuscular HGB Conc 30.3 g/dL (31.6-35.5); Mean Corpuscular Hemoglobin 28.6 pg (28.0-33.3); Mean Corpuscular Volume 94.2 fL (83.0-100.0); Mean Platelet Volume 12.1 fL (9.4-12.4); Platelet Count 167 K/mcL (140-400); Red Blood Count 3.78 M/mcL (3.82-4.97); Red Cell Distribution Width 14.8 % (11.5-14.5)
[2018-08-09 03:11] LABS: BUN/Creatinine Ratio 21 (6-26); Blood Urea Nitrogen 20 mg/dL (8-23); Calcium 9.7 mg/dL (8.6-10.3); Carbon Dioxide 28 mEq/L (23-29); Chloride 100 mEq/L (98-107); Creatine Kinase 533 Units/L (30-223); Glucose 131 mg/dL (70-105); Osmolality,Calculated 288 (280-300); Potassium 3.4 mEq/L (3.5-5.1); Sodium 137 mEq/L (136-145); eGFR For Non-African Americans 57 (> 60)
[2018-08-09 03:31] LABS: Adenovirus Not Detected (Not Detect); Bordetella Pertussis Not Detected (Not Detect); Chlamydophila pneumoniae Not Detected (Not Detect); Coronavirus 229E Not Detected (Not Detect); Coronavirus HKU1 Not Detected (Not Detect); Coronavirus NL63 Not Detected (Not Detect); Coronavirus OC43 Not Detected (Not Detect); Human Metapneumovirus Not Detected (Not Detect); Human Rhinovirus/Enterovirus Not Detected (Not Detect); Influenza A Subtype 2009 H1 Not Detected (Not Detect); Influenza A Untypeable Not Detected (Not Detect); Influenza B Not Detected (Not Detect); Mycoplasma pneumoniae Not Detected (Not Detect); Parainfluenza Virus 1 Not Detected (Not Detect); Parainfluenza Virus 2 Not Detected (Not Detect); Parainfluenza Virus 3 Not Detected (Not Detect); Parainfluenza Virus 4 Not Detected (Not Detect); Respiratory Syncytial Virus Not Detected (Not Detect)
[2018-08-09] MEDS ORDERED: Aspirin 325 MG TABLET PO ONE (03:56)
[2018-08-09] MEDS ORDERED: *HR* Heparin 5,000 UNIT/ML VIAL IVP ONE (04:03)
[2018-08-09] MEDS ORDERED: *HR* Heparin 5,000 UNIT/ML VIAL IVP PRN ×2 (04:03)
[2018-08-09] MEDS ORDERED: Heparin 25,000 UNIT/250 ML D5W 25,000 UNIT/250 ML IV.SOLN IVC SCH (04:15)
[2018-08-09 05:06] LABS: Hemoglobin 10.8 g/dL (11.5-15.4)
[2018-08-09 05:07] LABS: Hematocrit 35.4 % (35.3-44.9); Mean Corpuscular HGB Conc 30.5 g/dL (31.6-35.5); Mean Corpuscular Hemoglobin 28.3 pg (28.0-33.3); Mean Corpuscular Volume 92.9 fL (83.0-100.0); Mean Platelet Volume 11.7 fL (9.4-12.4); Platelet Count 198 K/mcL (140-400); Red Blood Count 3.81 M/mcL (3.82-4.97); Red Cell Distribution Width 14.6 % (11.5-14.5)
[2018-08-09 05:18] LABS: INR 1.1; Prothrombin Time 12.4 Seconds (9.4-12.1)
--- NOTE | 2018-08-09 05:35 | Event Note ---
Date of Encounter: 08/09/18 Time of Encounter: 05:33 Pt troponin came back increased at 0.15, given 325mg ASA and started on heparin drip. EKG showed no signs of acute ischemia but did show some bigemy and trgemy on telemetry. Pt continued to deny chest pain. ECHO pending. 0534 AM: troponin 0.21 on repeat. Cardiology consulted. Pt continues to deny chest pain. Made NPO in case of intervention.
[2018-08-09] MEDS: 0.9 % Sodium Chloride 1,000 ML IVC SCH ×2 (07:11→15:20)
[2018-08-09] MEDS: Azithromycin 500 MG in D5% in Water 250 ML IVPB SCH (08:38)
[2018-08-09] MEDS: cefTRIAXone 2,000 MG in Water for inj. (sterile) 20 ML 20 ML IVP SCH (08:43)
[2018-08-09] MEDS: amLODIPine 5 MG TABLET PO SCH (08:44)
[2018-08-09] MEDS: Lisinopril 20 MG TABLET PO SCH (08:44)
[2018-08-09] MEDS: BuPROPion SR (12 HR) 150 MG TABLET PO SCH ×2 (08:47→21:14)
--- NOTE | 2018-08-09 09:06 | Cardiology Consult Note ---
Date of Encounter: 08/09/18 Assessment and Plan Discussion w patient/family: The assessment and plan as outlined above was discussed with the patient and/or family members who expressed understanding and agreement. All questions were answered. Thank you for involving us in the care of your patient. Please call with any questions. History of Present Illness History of present illness: Ms. Solis is a 77 year old female Past Med Surg Social Fam HX - Past Medical History Medical history: arthritis, asthma, CHF, COPD, hyperlipidemia, hypertension Additional medical history: Mitro valus prolapse. Psychiatric history: anxiety, depression - Past Surgical History Surgical History: hip replacement, knee replacement, orthopedic, other Additional surgical history: left hip, left shoulder, german knee replacement, back surgery x4 - Social History Smoking Status: Former smoker Smokeless Tobacco Status: No Alcohol use: none Drug use: none - Family History Mother Living Status: Father Living Status: Medications and Allergies Alendronate Sodium [Fosamax] 70 mg PO TU 11/30/16 [History] BuPROPion SR (12 HR) [Wellbutrin SR] 150 mg PO BID 11/30/16 [History] Furosemide [Lasix] 20 mg PO DAILY 11/30/16 [History] Gabapentin [Neurontin] 300 mg PO QA 11/30/16 [History] Montelukast [Singulair] 10 mg PO HS 11/30/16 [History] PARoxetine HCl [Paroxetine HCl] 40 mg PO HS 11/30/16 [History] Simvastatin [Zocor] 20 mg PO HS 11/30/16 [History] Cholecalciferol (Vitamin D3) [Vitamin D3] 4,000 unit PO DAILY 04/19/18 [History] Gabapentin [Neurontin] 600 mg PO HS 04/19/18 [History] Metoprolol Tartrate [Lopressor] 100 mg PO BID 04/19/18 [History] Multivit-Min/FA/Lycopen/Lutein [Centrum Silver Men Tablet] 1 tab PO DAILY 04/19/18 [History] Albuterol Sulfate [Albuterol Inhaler] 2 puff IH Q4H PRN 04/20/18 [History] Hydrocodone/Acetaminophen [[place] 5-325 Tablet] 1 - 2 tab PO Q6H PRN 04/20/18 [History] Budesonide/Formoterol 160/4.5 [Symbicort 160/4.5] 2 puff IH BIDR 08/08/18 [History] Lisinopril [Zestril] 40 mg PO DAILY 08/08/18 [History] Melatonin 10 mg PO HS 08/08/18 [History] amLODIPine [Norvasc] 5 mg PO DAILY 08/08/18 [History] Allergy/AdvReac Type Severity Reaction Status Date / Time aspirin [ASA] AdvReac See Verified 02/04/18 12:10 Comments tramadol AdvReac See Verified 02/04/18 12:10 Comments All Systems Review: The remainder of the systems were reviewed and are negative Physical Examination Vital Signs, Last 4 Hours Temp Pulse Resp BP Pulse Ox 08/09/18 08:42 98.9 F 135/81 08/09/18 07:09 98.6 F 111 18 181/91 95 Results 08/09/18 04:45 08/09/18 01:52 Lab Results 08/08/18 08/08/18 08/09/18 18:28 18:28 01:52 WBC 35.0 H* Hgb 11.7 Hct 38.2 Plt Count 190 INR Sodium 135 L Potassium 3.6 Chloride 98 Carbon Dioxide 22 L BUN 21 Creatinine 0.98 Glucose 138 H Calcium 9.7 Total Bilirubin 0.7 AST 36 ALT 18 Alkaline Phosphatase 105 H Troponin I 0.04 H* 0.15 H* TSH 0.423 08/09/18 08/09/18 08/09/18 01:52 01:52 04:45 WBC 32.2 H* Hgb 10.8 L Hct 35.6 Plt Count 167 INR Sodium 137 Potassium 3.4 L Chloride 100 Carbon Dioxide 28 BUN 20 Creatinine 0.94 Glucose 131 H Calcium 9.7 Total Bilirubin AST ALT Alkaline Phosphatase Troponin I 0.21 H* TSH 08/09/18 08/09/18 04:45 04:45 WBC 30.2 H* Hgb 10.8 L Hct 35.4 Plt Count 198 INR 1.1 Sodium Potassium Chloride Carbon Dioxide BUN Creatinine Glucose Calcium Total Bilirubin AST ALT Alkaline Phosphatase Troponin I TSH Consult Discharge Plan - Plan Referrals: Nabil Hodge MD [Primary Care Provider] -
--- NOTE | 2018-08-09 09:33 | Cardiology Consult Note ---
Date of Encounter: 08/09/18 Time of Encounter: 09:30 Assessment and Plan (1) Community acquired pneumonia Current Visit: Yes Status: Acute Continue abx per primary team Qualifiers: Laterality: right Lung location: upper lobe of lung Qualified Code(s): J18.1 - Lobar pneumonia, unspecified organism (2) Elevated troponin Current Visit: Yes Status: Acute Likely 2/2 demand ischemia from PNA. TTE pending to assess EF/WM. If no significant derangement, will sign off and can fu with her PCP. Discussion w patient/family: The assessment and plan as outlined above was discussed with the patient and/or family members who expressed understanding and agreement. All questions were answered. Thank you for involving us in the care of your patient. Please call with any questions. History of Present Illness Consult date: 08/09/18 Consult reason: elevated troponin Chief complaint: dyspnea History of present illness: Ms. Solis is a 77 year old female with no previous cardiac history presents with dyspnea, fever and intermittent confusion. She has history of COPD not on home oxygen, arthritis, HTN, HLD, and CHF. There was reported confusion by the daughter that started Tuesday. The confusion waxed and waned and she was starting to act like the was getting better but today became very confused again. There were subjective fevers, family did not take temperature. Pt reports a mild cough. She has had increasing chest congestion but denies an increase in sputum production or change in color. Family report that she has had some slurred speech that would come and go. There was no chest/jaw/arm discomfort, palpitations or syncope. 05/2016 preop pharm nuclear negative for ischemia 01/2015 TTE LVEF 60%. Mild concentric left ventricular hypertrophy. Mild left ventricular diastolic dysfunction. Normal right ventricular structure and function. Mild-moderate pulmonic regurgitation. No evidence of pulmonary hypertension. Past Med Surg Social Fam HX - Past Medical History Medical history: arthritis, asthma, CHF, COPD, hyperlipidemia, hypertension Additional medical history: Mitro valus prolapse. Psychiatric history: anxiety, depression - Past Surgical History Surgical History: hip replacement, knee replacement, orthopedic, other Additional surgical history: left hip, left shoulder, german knee replacement, back surgery x4 - Social History Smoking Status: Former smoker Smokeless Tobacco Status: No Alcohol use: none Drug use: none - Family History Mother Living Status: Father Living Status: Medications and Allergies Alendronate Sodium [Fosamax] 70 mg PO TU 11/30/16 [History] BuPROPion SR (12 HR) [Wellbutrin SR] 150 mg PO BID 11/30/16 [History] Furosemide [Lasix] 20 mg PO DAILY 11/30/16 [History] Gabapentin [Neurontin] 300 mg PO QAM 11/30/16 [History] Montelukast [Singulair] 10 mg PO HS 11/30/16 [History] PARoxetine HCl [Paroxetine HCl] 40 mg PO HS 11/30/16 [History] Simvastatin [Zocor] 20 mg PO HS 11/30/16 [History] Cholecalciferol (Vitamin D3) [Vitamin D3] 4,000 unit PO DAILY 04/19/18 [History] Gabapentin [Neurontin] 600 mg PO HS 04/19/18 [History] Metoprolol Tartrate [Lopressor] 100 mg PO BID 04/19/18 [History] Multivit-Min/FA/Lycopen/Lutein [Centrum Silver Men Tablet] 1 tab PO DAILY 04/19/18 [History] Albuterol Sulfate [Albuterol Inhaler] 2 puff IH Q4H PRN 04/20/18 [History] Hydrocodone/Acetaminophen [[place] 5-325 Tablet] 1 - 2 tab PO Q6H PRN 04/20/18 [History] Budesonide/Formoterol 160/4.5 [Symbicort 160/4.5] 2 puff IH BIDR 08/08/18 [History] Lisinopril [Zestril] 40 mg PO DAILY 08/08/18 [History] Melatonin 10 mg PO HS 08/08/18 [History] amLODIPine [Norvasc] 5 mg PO DAILY 08/08/18 [History] Allergy/AdvReac Type Severity Reaction Status Date / Time aspirin [ASA] AdvReac See Verified 02/04/18 12:10 Comments tramadol AdvReac See Verified 02/04/18 12:10 Comments All Systems Review: The remainder of the systems were reviewed and are negative - Constitutional Constitutional: chills, fever(s) - EENT Eyes: no blurred vision, no loss of vision Nose, mouth and throat: no bleeding gums, no sore throat - Cardiovascular Cardiovascular: no rapid heart rate, no slow heart rate - Respiratory Respiratory: no hemoptysis, no wheezing - Gastrointestinal Gastrointestinal: no hematemesis, no hematochezia - Genitourinary Genitourinary: no hematuria, no nocturia - Musculoskeletal Musculoskeletal: no muscle cramps, no muscle weakness - Integumentary Integumentary: no rash, no unusual bruising - Neurological Neurological: no numbness, no tingling - Psychiatric Psychiatric: no hallucinations, no panic attacks - Hematological/Lymphatic Hematologic/Lymphatic: no easy bleeding, no easy bruising Physical Examination Vital Signs, Last 4 Hours Temp Pulse Resp BP Pulse Ox 08/09/18 09:11 95 08/09/18 08:42 98.9 F 135/81 08/09/18 07:09 98.6 F 111 18 181/91 95 General: Conversant HEENT: Atraumatic Neck: No JVD Cardiac: Reg Rate and Rhythm Lungs: Other (right crackles) Neuro: Alert and responsive Skin: No rashes noted on visualized skin Musculoskeletal: No Chest Wall Tenderness Extremities: No Edema Results 08/09/18 04:45 08/09/18 01:52 Lab Results 08/08/18 08/08/18 08/09/18 18:28 18:28 01:52 WBC 35.0 H* Hgb 11.7 Hct 38.2 Plt Count 190 INR Sodium 135 L Potassium 3.6 Chloride 98 Carbon Dioxide 22 L BUN 21 Creatinine 0.98 Glucose 138 H Calcium 9.7 Total Bilirubin 0.7 AST 36 ALT 18 Alkaline Phosphatase 105 H Troponin I 0.04 H* 0.15 H* TSH 0.423 08/09/18 08/09/18 08/09/18 01:52 01:52 04:45 WBC 32.2 H* Hgb 10.8 L Hct 35.6 Plt Count 167 INR Sodium 137 Potassium 3.4 L Chloride 100 Carbon Dioxide 28 BUN 20 Creatinine 0.94 Glucose 131 H Calcium 9.7 Total Bilirubin AST ALT Alkaline Phosphatase Troponin I 0.21 H* TSH 08/09/18 08/09/18 04:45 04:45 WBC 30.2 H* Hgb 10.8 L Hct 35.4 Plt Count 198 INR 1.1 Sodium Potassium Chloride Carbon Dioxide BUN Creatinine Glucose Calcium Total Bilirubin AST ALT Alkaline Phosphatase Troponin I TSH - EKG Interpretation EKG results cardiology: personally reviewed, sinus rhythm (anterior infarct, old. pvc) Consult Discharge Plan - Plan Referrals: Nabil Hodge MD [Primary Care Provider] -
--- NOTE | 2018-08-09 10:21 | Electrocardiograph Report ---
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
--- NOTE | 2018-08-09 10:30 | Electrocardiograph Report ---
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
[2018-08-09] MEDS ORDERED: Acetaminophen 325 MG TABLET PO PRN (17:38)
--- NOTE | 2018-08-09 18:10 | Event Note ---
Date of Encounter: 08/09/18 Time of Encounter: 15:30 Pt seen and examined with daytime resident team. Slight thought blocking during interview although reportedly improved from AM. Presented with fatigue. In ED, pt hypoxic, labs with WBC 35, CXR showing consolidations throughout R lung. Admitted with pneumonia causing sepsis and acute hypoxic respiratory failure and acute metabolic encephalopathy. Has been started on rocephin/azithro and on exam this afternoon is clinically improving. Continue plan as written in today's H&P, with addition of hypokalemia requiring repletion, and elevated troponin likely demand ischemia in setting of hypoxia from pneumonia, with TTE unremarkable, will d/c heparin gtt.
--- NOTE | 2018-08-09 18:51 | Internal Med Progress Note ---
Hospitalist Progress Note - Encounter Date of Encounter: 08/09/18 Time of Encounter: 15:00 - Subjective Interval History: Seen and examined this afternoon at bedside. Patient appears to be resting comfortably in bed, alert and in no acute distress. Overnight, patient was notes to have SpO2 85% on room air, improved to 90% on 2L nasal cannula. PVC's noted on telemetry overnight, EKG reportedly showing bigeminy and trigeminy. No complaints of pain at this time. Reported chills; denies fevers, chest pain, wheezes, nausea, vomiting, headache. - Exam Vitals: Temp Pulse Resp BP Pulse Ox 97.7 F 84 16 154/82 94 08/09/18 14:30 08/09/18 14:30 08/09/18 14:30 08/09/18 14:30 08/09/18 14:30 Exam: general - aox3, NAD, non-toxic appearing heent - mmm,vncat, no scleral icterus neck - supple, no LAD cardio - tacycardia, s1s2, no murmurs/gallops/rubs lungs - decreased breath sounds on the right, no respiratory distress abd - soft, nontender, nondistended, no rebound or guarding extremities - moves all limbs equally without difficulty, no peripheral edema skin - warm,dry,intact neuro - no focal deficits, cn2-12 intact, answers questions appropriately; oriented to place, time, person, situation psych - appropriate mood/affect - Assessment and Plan (1) Sepsis Current Visit: Yes Status: Acute Assessment and Plan: SIRS criteria met on admission: Temp > 100.9 F, HR > 90, RR > 20, WBC > 12K with suspected source of PNA and reported oxygen desaturation 81-84% on room air prior to arrival Causative organism: unclear Tmax 102.6 F --- afebrile since admission Vital signs stable, tachycardia appears to have resolved WBC 35 ---> 30.2 today Lactic acid 1.3 CXR shows consolidation throughout right lung; left lung is clear BCx show NGTD Urine cx shows NGTD Influenza A/B negative Legionella and strep pneumo urine antigens negative Current empiric abx: azithromycin and ceftriaxone Maintenance IVF 0.9% NS - Continue current empiric abx - Monitor BCx and UCx for growth - Repeat CBC in morning to trend WBC (2) Community acquired pneumonia Current Visit: Yes Status: Acute Assessment and Plan: Treat as above for sepsis (3) Acute respiratory failure Current Visit: Yes Status: Acute Assessment and Plan: Acute respiratory failure with hypoxia Most likely d/t CAP in setting of COPD Reported oxygen desaturation 81-84% on room air prior to arrival - PNA treatment as above (4) Acute encephalopathy Current Visit: Yes Status: Acute Assessment and Plan: Acute metabolic encephalopathy Most likely secondary to sepsis d/t PNA in setting of COPD CT head negative for acute intracranial abnormality - Treat PNA as described above, anticipate resolution of encephalopathy as sepsis resolves (5) COPD (chronic obstructive pulmonary disease) Current Visit: Yes Status: Chronic Assessment and Plan: not on home oxygen continue nebulizer treatments (6) Elevated troponin Current Visit: Yes Status: Acute Assessment and Plan: Troponin peaked at 0.21 before trending downward Most likely elevated d/t demand ischemia secondary to PNA--doubt ACS EKG negative for signs of acute ischemia Echocardiogram shows LVEF 65% - Heparin gtt stopped (7) Hypokalemia Current Visit: Yes Status: Acute Assessment and Plan: K 3.4 this morning --- 40 mEq potassium x 2 doses Mg 1.2 - Recheck K in AM and replace as needed - Goal K > 4 (8) Hypertension Current Visit: No Status: Chronic - Time Spent with Patient Total time spent is greater than 50% in coordination of care (as documented) at patient's floor/unit and/or counseling patient: less than 15 minutes Plan of Care Discussed with: family Internal Medicine: Result - Labs CBC & Chem 7: 08/09/18 04:45 08/09/18 01:52 Labs: Short CBC 08/08/18 08/09/18 08/09/18 Range/Units 18:28 01:52 04:45 WBC 35.0 H* 32.2 H* 30.2 H* (4.3-11.1) K/mcL Hgb 11.7 10.8 L 10.8 L (11.5-15.4) g/dL Hct 38.2 35.6 35.4 (35.3-44.9) % Plt Count 190 167 198 (140-400) K/mcL Neutrophils # 30.9 H (1.6-8.9) K/mcL BMP 08/08/18 08/09/18 18:28 01:52 Sodium 135 L 137 Potassium 3.6 3.4 L Chloride 98 100 Carbon Dioxide 22 L 28 BUN 21 20 Creatinine 0.98 0.94 Glucose 138 H 131 H Calcium 9.7 9.7 Cardiac Enzymes 08/08/18 08/09/18 08/09/18 Range/Units 18:28 01:52 04:45 Troponin I 0.04 H* 0.15 H* 0.21 H* (< 0.04) ng/mL 08/09/18 Range/Units 12:57 Troponin I 0.08 H* (< 0.04) ng/mL Liver Function 08/08/18 Range/Units 18:28 Total Bilirubin 0.7 (0.3-1.0) mg/dL Direct Bilirubin 0.2 (0.0-0.2) mg/dL AST 36 (13-39) Units/L ALT 18 (7-52) Units/L Alkaline Phosphatase 105 H (34-104) Units/L Albumin 3.8 (3.5-5.7) g/dL Urine 08/09/18 Range/Units 01:05 Urine Color Yellow (Yellow) Urine Clarity Clear (Clear) Urine pH 6.5 (5.0-8.0) pH Units Ur Specific [place] 1.010 (1.010-1.025) Urine Protein 30 H (Neg-Trace) mg/dL Urine Glucose (UA) Normal (Normal) mg/dL - ABG Interpretation ABG results: PT/INR, D-dimer PT 12.4 Seconds (9.4-12.1) H 08/09/18 04:45 - Impressions Impressions Chest X-Ray 08/08/18 17:48 IMPRESSION: Right lung consolidation likely pneumonia. Recommend follow-up to exclude an underlying lesion. D/ / 08/08/2018 18:44:45 Sidney Morin MD / [email or web address] Interpreting Provider: Sidney Morin MD Head CT 08/08/18 17:48 IMPRESSION: 1. No acute intracranial abnormality. D/ / Kennedy Singh MD / Kennedy Singh MD Interpreting Provider: Kennedy Singh MD Echocardiogram 08/09/18 01:23 Impressions: LVEF 65%. Normal LV chamber size and function. Mild concentric left ventricular hypertrophy. Mild left ventricular diastolic dysfunction. Atypical septal motion consistent with bundle branch block. Normal right ventricular structure and function. No evidence of pulmonary hypertension. No significant valvular dysfunction. Left Ventricular Wall Motion: Rest Echo Findings All wall segments showed normal motion. Findings: Study Quality * Technically sub-optimal due to poor echocardiographic windows. ECG Findings * Sinus rhythm with BBB. Left Ventricle * LVEF 65%. * Normal LV chamber size and function. * Mild concentric left ventricular hypertrophy. * Mild left ventricular diastolic dysfunction. * Atypical septal motion consistent with bundle branch block. Right Ventricle * Normal right ventricular structure and function. Left Atrium * Mildly dilated left atrium. Right Atrium * Mildly dilated right atrium. Interatrial Septum * Interatrial septum not well evaluated. Aortic Valve * Aortic valve not well visualized. * Grossly, mildly calcified aortic valve leaflets. * No aortic regurgitation. * No aortic stenosis. Mitral Valve * Mild mitral annular calcification. * Trace mitral regurgitation. * No mitral stenosis. Tricuspid Valve * Normal tricuspid valve structure and function. * Trace tricuspid regurgitation. * No evidence of pulmonary hypertension. Pulmonic Valve * Pulmonic valve is not well visualized. Aorta * Normally sized aortic root. Pericardium * The pericardium appears normal. IVC * Normal IVC dimensions and inspiratory collapse. Pulmonary Artery * Pulmonary artery not well visualized. Consult Discharge Plan - Plan Referrals: Nabil Hodge MD [Primary Care Provider] - (1) Sepsis Qualifiers: Sepsis type: sepsis due to unspecified organism Qualified Code(s): A41.9 - Sepsis, unspecified organism (2) Community acquired pneumonia Qualifiers: Laterality: right Lung location: upper lobe of lung Qualified Code(s): J18.1 - Lobar pneumonia, unspecified organism (3) Acute respiratory failure Qualifiers: Respiratory failure complication: hypoxia Qualified Code(s): J96.01 - Acute respiratory failure with hypoxia (5) COPD (chronic obstructive pulmonary disease) Qualifiers: COPD type: unspecified COPD Qualified Code(s): J44.9 - Chronic obstructive pulmonary disease, unspecified (8) Hypertension Qualifiers: Hypertension type: essential hypertension Qualified Code(s): I10 - Essential (primary) hypertension
[2018-08-09] MEDS: Melatonin 3 MG TABLET PO SCH (21:14)
[2018-08-10] MEDS: 0.9 % Sodium Chloride 1,000 ML IVC SCH ×2 (02:46→14:11)
[2018-08-10 04:44] LABS: Hematocrit 39.2 % (35.3-44.9); Hemoglobin 11.9 g/dL (11.5-15.4); Mean Corpuscular HGB Conc 30.4 g/dL (31.6-35.5); Mean Corpuscular Hemoglobin 28.1 pg (28.0-33.3); Mean Corpuscular Volume 92.5 fL (83.0-100.0); Mean Platelet Volume 11.1 fL (9.4-12.4); Nucleated Red Blood Cells 0.1 /100 WBC (0); Platelet Count 240 K/mcL (140-400); Red Blood Count 4.24 M/mcL (3.82-4.97); Red Cell Distribution Width 14.6 % (11.5-14.5)
[2018-08-10 05:00] LABS: BUN/Creatinine Ratio 27 (6-26); Blood Urea Nitrogen 15 mg/dL (8-23); Calcium 8.8 mg/dL (8.6-10.3); Carbon Dioxide 25 mEq/L (23-29); Chloride 105 mEq/L (98-107); Glucose 94 mg/dL (70-105); Osmolality,Calculated 287 (280-300); Potassium 3.3 mEq/L (3.5-5.1); Sodium 138 mEq/L (136-145); eGFR For Non-African Americans > 60 (> 60)
[2018-08-10] MEDS ORDERED: *HR* Enoxaparin 30 MG/0.3 ML SYRINGE SQ SCH (06:00)
[2018-08-10 06:09] LABS: Lymphocytes # 1.8 K/mcL (0.6-4.6); Monocytes # 0.5 K/mcL (0.0-1.3); Neutrophils # 20.3 K/mcL (1.6-8.9)
[2018-08-10 06:10] LABS: Platelet Estimate Normal (Normal)
--- NOTE | 2018-08-10 09:03 | Internal Med Progress Note ---
<Noreen Schneider - Last Filed: 08/10/18 23:49> Hospitalist Progress Note - Encounter Date of Encounter: 08/10/18 Time of Encounter: 09:02 - Subjective Interval History: Seen and examined at bedside, patient's daughter also present in the room. Patient complains of back pain and diarrhea because she hasn't taken her pain meds over the last 3 days and would like them restarted. She denies fevers, chills, headache, shortness of breath, chest pain. - Exam Vitals: Temp Pulse Resp BP Pulse Ox 97.7 F 85 16 169/99 96 08/10/18 07:13 08/10/18 07:13 08/10/18 07:13 08/10/18 07:13 08/10/18 07:13 Exam: general - aaox3, NAD, non-toxic appearing heent - mmm,ncat, no scleral icterus neck - supple, no LAD cardio - RRR, normal s1s2, no murmurs/gallops/rubs lungs - improved breath sounds on the right, no respiratory distress, wearing nasal cannula abd - soft, nontender, nondistended, no rebound or guarding extremities - moves all limbs equally without difficulty, no peripheral edema skin - warm,dry,intact neuro - no focal deficits, cn2-12 intact, answers questions appropriately; oriented to place, time, person, situation psych - appropriate mood/affect - Assessment and Plan (1) Sepsis Current Visit: Yes Status: Acute Assessment and Plan: SIRS criteria met on admission: Temp > 100.9 F, HR > 90, RR > 20, WBC > 12K with suspected source of PNA and reported oxygen desaturation 81-84% on room air prior to arrival Causative organism: unclear Tmax 102.6 F --- afebrile since admission Vital signs stable, tachycardia appears to have resolved Lactic acid 1.3 WBC trending downward, 22.5 today CXR shows consolidation throughout right lung; left lung is clear BCx remain NGTD Urine cx negative Influenza A/B negative Legionella and strep pneumo urine antigens negative Current empiric abx: azithromycin and ceftriaxone ----> stop azithromycin, continue ceftriaxone (2) Community acquired pneumonia Current Visit: Yes Status: Acute Assessment and Plan: As above for sepsis (3) Acute respiratory failure Current Visit: Yes Status: Acute Assessment and Plan: Acute respiratory failure with hypoxia Most likely d/t CAP in setting of COPD Reported oxygen desaturation 81-84% on room air prior to arrival - PNA treatment as above (4) Acute encephalopathy Current Visit: Yes Status: Resolved Assessment and Plan: Resolved Acute metabolic encephalopathy Most likely secondary to sepsis d/t PNA in setting of COPD CT head negative for acute intracranial abnormality - Treat PNA as described above (5) COPD (chronic obstructive pulmonary disease) Current Visit: Yes Status: Chronic Assessment and Plan: Not on home oxygen Continue neb treatments Wean off supplemental oxygen (6) Hypokalemia Current Visit: Yes Status: Acute Assessment and Plan: K 3.3 this morning, Mg 1.9 - Goal K > 4 - Replace with PO potassium 40 mEq x 2 doses and recheck electrolytes with AM labs (7) Hypertension Current Visit: Yes Status: Chronic Assessment and Plan: continue home meds (8) Elevated troponin Current Visit: Yes Status: Resolved - Time Spent with Patient Total time spent is greater than 50% in coordination of care (as documented) at patient's floor/unit and/or counseling patient: Internal Medicine: Result - Labs CBC & Chem 7: 08/10/18 04:01 08/10/18 04:01 Labs: Short CBC 08/10/18 Range/Units 04:01 WBC 22.5 H (4.3-11.1) K/mcL Hgb 11.9 (11.5-15.4) g/dL Hct 39.2 (35.3-44.9) % Plt Count 240 (140-400) K/mcL Neutrophils # 20.3 H (1.6-8.9) K/mcL BMP 08/10/18 04:01 Sodium 138 Potassium 3.3 L Chloride 105 Carbon Dioxide 25 BUN 15 Creatinine 0.56 L Glucose 94 Calcium 8.8 Cardiac Enzymes 08/09/18 Range/Units 12:57 Troponin I 0.08 H* (< 0.04) ng/mL - ABG Interpretation ABG results: PT/INR, D-dimer PT 12.4 Seconds (9.4-12.1) H 08/09/18 04:45 - Impressions Impressions Echocardiogram 08/09/18 01:23 Impressions: LVEF 65%. Normal LV chamber size and function. Mild concentric left ventricular hypertrophy. Mild left ventricular diastolic dysfunction. Atypical septal motion consistent with bundle branch block. Normal right ventricular structure and function. No evidence of pulmonary hypertension. No significant valvular dysfunction. Left Ventricular Wall Motion: Rest Echo Findings All wall segments showed normal motion. Findings: Study Quality * Technically sub-optimal due to poor echocardiographic windows. ECG Findings * Sinus rhythm with BBB. Left Ventricle * LVEF 65%. * Normal LV chamber size and function. * Mild concentric left ventricular hypertrophy. * Mild left ventricular diastolic dysfunction. * Atypical septal motion consistent with bundle branch block. Right Ventricle * Normal right ventricular structure and function. Left Atrium * Mildly dilated left atrium. Right Atrium * Mildly dilated right atrium. Interatrial Septum * Interatrial septum not well evaluated. Aortic Valve * Aortic valve not well visualized. * Grossly, mildly calcified aortic valve leaflets. * No aortic regurgitation. * No aortic stenosis. Mitral Valve * Mild mitral annular calcification. * Trace mitral regurgitation. * No mitral stenosis. Tricuspid Valve * Normal tricuspid valve structure and function. * Trace tricuspid regurgitation. * No evidence of pulmonary hypertension. Pulmonic Valve * Pulmonic valve is not well visualized. Aorta * Normally sized aortic root. Pericardium * The pericardium appears normal. IVC * Normal IVC dimensions and inspiratory collapse. Pulmonary Artery * Pulmonary artery not well visualized. Consult Discharge Plan - Plan Referrals: Nabil Hodge MD [Primary Care Provider] - 08/17/18 1:30 pm () <Caly Holman - Last Filed: 08/11/18 07:50> Hospitalist Progress Note - Encounter Date of Encounter: 08/10/18 - Assessment and Plan (1) Dyslipidemia Current Visit: No Status: Chronic Internal Medicine: Result - Labs CBC & Chem 7: 08/11/18 04:22 08/11/18 04:22 Labs: Short CBC 08/11/18 Range/Units 04:22 WBC 14.3 H (4.3-11.1) K/mcL Hgb 12.0 (11.5-15.4) g/dL Hct 39.6 (35.3-44.9) % Plt Count 271 (140-400) K/mcL Neutrophils # 10.3 H (1.6-8.9) K/mcL BMP 08/11/18 04:22 Sodium 140 Potassium 3.6 Chloride 106 Carbon Dioxide 27 BUN 17 Creatinine 0.76 Glucose 88 Calcium 9.3 - ABG Interpretation ABG results: PT/INR, D-dimer PT 12.4 Seconds (9.4-12.1) H 08/09/18 04:45 - Attending Attestation Patient seen and examined independently, including review of objective data including labs. I agree with plan of care as documented above by the resident with the following comments: CAP improving as expected with abx - will deescalate to PO therapy tomorrow and likely discharge home Acute hypoxic respiratory failure - improving Acute metabolic encephalopathy resolved Sepsis resolved Demand ischemia resolved <Noreen Schneider - Last Filed: 08/10/18 23:49> (1) Sepsis Qualifiers: Sepsis type: sepsis due to unspecified organism Qualified Code(s): A41.9 - Sepsis, unspecified organism (2) Community acquired pneumonia Qualifiers: Laterality: right Lung location: upper lobe of lung Qualified Code(s): J18.1 - Lobar pneumonia, unspecified organism (3) Acute respiratory failure Qualifiers: Respiratory failure complication: hypoxia Qualified Code(s): J96.01 - Acute respiratory failure with hypoxia (5) COPD (chronic obstructive pulmonary disease) Qualifiers: COPD type: unspecified COPD Qualified Code(s): J44.9 - Chronic obstructive pulmonary disease, unspecified (7) Hypertension Qualifiers: Hypertension type: essential hypertension Qualified Code(s): I10 - Essential (primary) hypertension
[2018-08-10] MEDS: cefTRIAXone 2,000 MG in Water for inj. (sterile) 20 ML 20 ML IVP SCH (09:18)
[2018-08-10] MEDS: Azithromycin 500 MG in D5% in Water 250 ML IVPB SCH (09:18)
[2018-08-10] MEDS: amLODIPine 5 MG TABLET PO SCH (09:19)
[2018-08-10] MEDS: BuPROPion SR (12 HR) 150 MG TABLET PO SCH ×2 (09:19→21:04)
[2018-08-10] MEDS: Lisinopril 20 MG TABLET PO SCH (09:19)
[2018-08-10] MEDS: Gabapentin 300 MG CAPSULE PO SCH (13:04)
[2018-08-10] MEDS: *HR* HYDROcodone/Acet 5/325 mg TABLET PO PRN ×3 (13:05→22:54)
[2018-08-10] MEDS ORDERED: Gabapentin 300 MG CAPSULE PO SCH (21:00)
[2018-08-10] MEDS: Melatonin 3 MG TABLET PO SCH (21:04)
[2018-08-11] MEDS: 0.9 % Sodium Chloride 1,000 ML IVC SCH (00:19)
[2018-08-11 05:13] LABS: Hematocrit 39.6 % (35.3-44.9); Mean Corpuscular HGB Conc 30.3 g/dL (31.6-35.5); Mean Corpuscular Hemoglobin 28.4 pg (28.0-33.3); Mean Corpuscular Volume 93.8 fL (83.0-100.0); Mean Platelet Volume 10.8 fL (9.4-12.4); Nucleated Red Blood Cells 0.1 /100 WBC (0); Platelet Count 271 K/mcL (140-400); Red Blood Count 4.22 M/mcL (3.82-4.97); Red Cell Distribution Width 14.8 % (11.5-14.5)
[2018-08-11 05:31] LABS: BUN/Creatinine Ratio 22 (6-26); Blood Urea Nitrogen 17 mg/dL (8-23); Calcium 9.3 mg/dL (8.6-10.3); Carbon Dioxide 27 mEq/L (23-29); Chloride 106 mEq/L (98-107); Glucose 88 mg/dL (70-105); Osmolality,Calculated 291 (280-300); Potassium 3.6 mEq/L (3.5-5.1); Sodium 140 mEq/L (136-145); eGFR For Non-African Americans > 60 (> 60)
[2018-08-11] MEDS ORDERED: *HR* Enoxaparin 40 MG/0.4 ML SYRINGE SQ SCH (06:00)
[2018-08-11 06:37] LABS: Eosinophils # 0.3 K/mcL (0.0-0.6); Lymphocytes # 2.3 K/mcL (0.6-4.6); Monocytes # 1.1 K/mcL (0.0-1.3); Neutrophils # 10.3 K/mcL (1.6-8.9)
[2018-08-11 06:39] LABS: Platelet Estimate Normal (Normal)
--- NOTE | 2018-08-11 08:41 | Discharge Summary ---
Orders not resulted at time of discharge: Pending orders 08/08/18 18:28 Culture,Blood [BC] Stat 08/08/18 22:34 Sputum Culture [Culture,Sputum with Gram Stain] [] Routine 08/12/18 04:00 BMP [Basic Metabolic Panel] AM 0400 Complete Blood Count [HEME] AM 0400 Date of Encounter: 08/11/18 Time of Encounter: 08:41 - Discharge Diagnosis (1) Sepsis Status: Acute Qualifiers: Sepsis type: sepsis due to unspecified organism Qualified Code(s): A41.9 - Sepsis, unspecified organism (2) Community acquired pneumonia Status: Acute Qualifiers: Laterality: right Lung location: upper lobe of lung Qualified Code(s): J18.1 - Lobar pneumonia, unspecified organism (3) Acute respiratory failure Status: Acute Qualifiers: Respiratory failure complication: hypoxia Qualified Code(s): J96.01 - Acute respiratory failure with hypoxia (4) Acute encephalopathy Status: Resolved (5) COPD (chronic obstructive pulmonary disease) Status: Chronic Qualifiers: COPD type: unspecified COPD Qualified Code(s): J44.9 - Chronic obstructive pulmonary disease, unspecified (6) Hypokalemia Status: Acute (7) Hypertension Status: Chronic Qualifiers: Hypertension type: essential hypertension Qualified Code(s): I10 - Essential (primary) hypertension (8) Elevated troponin Status: Resolved Hospital course: Ms. Solis is a 77 year old female - Time Spent with Patient Total time spent providing and/or coordinating discharge services: - Discharge Medications Prescriptions: New Cefdinir [Omnicef] 300 mg PO BID #6 capsule Continued Furosemide [Lasix] 20 mg PO DAILY Simvastatin [Zocor] 20 mg PO HS Montelukast [Singulair] 10 mg PO HS Alendronate Sodium [Fosamax] 70 mg PO TU Gabapentin [Neurontin] 300 mg PO QAM PARoxetine HCl [Paroxetine HCl] 40 mg PO HS BuPROPion SR (12 HR) [Wellbutrin SR] 150 mg PO BID Multivit-Min/FA/Lycopen/Lutein [Centrum Silver Men Tablet] 1 tab PO DAILY Cholecalciferol (Vitamin D3) [Vitamin D3] 4,000 unit PO DAILY Gabapentin [Neurontin] 600 mg PO HS Metoprolol Tartrate [Lopressor] 100 mg PO BID Albuterol Sulfate [Albuterol Inhaler] 2 puff IH Q4H PRN PRN Reason: Shortness Of Breath/Wheezing Hydrocodone/Acetaminophen [Burna 5-325 Tablet] 1 - 2 tab PO Q6H PRN PRN Reason: Mild To Moderate Pain Lisinopril [Zestril] 40 mg PO DAILY Melatonin 10 mg PO HS amLODIPine [Norvasc] 5 mg PO DAILY Budesonide/Formoterol 160/4.5 [Symbicort 160/4.5] 2 puff IH BIDR Home Medications: Alendronate Sodium [Fosamax] 70 mg PO TU 11/30/16 [History] BuPROPion SR (12 HR) [Wellbutrin SR] 150 mg PO BID 11/30/16 [History] Furosemide [Lasix] 20 mg PO DAILY 11/30/16 [History] Gabapentin [Neurontin] 300 mg PO QAM 11/30/16 [History] Montelukast [Singulair] 10 mg PO HS 11/30/16 [History] PARoxetine HCl [Paroxetine HCl] 40 mg PO HS 11/30/16 [History] Simvastatin [Zocor] 20 mg PO HS 11/30/16 [History] Cholecalciferol (Vitamin D3) [Vitamin D3] 4,000 unit PO DAILY 04/19/18 [History] Gabapentin [Neurontin] 600 mg PO HS 04/19/18 [History] Metoprolol Tartrate [Lopressor] 100 mg PO BID 04/19/18 [History] Multivit-Min/FA/Lycopen/Lutein [Centrum Silver Men Tablet] 1 tab PO DAILY 04/19/18 [History] Albuterol Sulfate [Albuterol Inhaler] 2 puff IH Q4H PRN 04/20/18 [History] Hydrocodone/Acetaminophen [Burna 5-325 Tablet] 1 - 2 tab PO Q6H PRN 04/20/18 [History] Budesonide/Formoterol 160/4.5 [Symbicort 160/4.5] 2 puff IH BIDR 08/08/18 [History] Lisinopril [Zestril] 40 mg PO DAILY 08/08/18 [History] Melatonin 10 mg PO HS 08/08/18 [History] amLODIPine [Norvasc] 5 mg PO DAILY 08/08/18 [History] Cefdinir [Omnicef] 300 mg PO BID #6 capsule 08/11/18 [Rx] Allergies/Adverse Reactions: Allergy/AdvReac Type Severity Reaction Status Date / Time aspirin [ASA] AdvReac See Verified 02/04/18 12:10 Comments tramadol AdvReac See Verified 02/04/18 12:10 Comments Date of admission: 08/08/18 21:14 Primary care physician: Nabil Hodge MD Consults: 08/08/18 22:27 Consult to Pastoral Services [CONS] Routine Comment: 08/08/18 22:52 Consult to Occupational Therapy [CONS] Routine Comment: Evaluate, develop and implement POC Reason for Consult: ptot eval Does patient have active BEDREST order?: No Is patient medically & hemodynamically stable?: Yes Patient assessed for mobility or mobilized this visit?: No Consult to Physical Therapy [CONS] Routine Comment: Evaluate, develop and implement POC Reason for Consult: ptot eval Does patient have active BEDREST order?: No Is patient medically & hemodynamically stable?: Yes Patient assessed for mobility or mobilized this visit?: No 08/09/18 05:31 Consult to Cardiology [CONS] Routine Comment: Consulting Provider: Cardiology Janet Reason for Consult: increasing troponin 0.15 ---> 0.21, here for PNA/AMS, on heparin drip, echo pending Call Completed: No 08/11/18 08:26 Consult to Nurse Navigator [CONS] Routine Comment: PNEUMONIA, COPD - Constitutional Vitals: Temp Pulse Resp BP Pulse Ox 97.5 F L 66 15 142/79 94 08/11/18 03:32 08/11/18 03:32 08/11/18 03:32 08/11/18 03:32 08/11/18 03:32 - Patient Status Condition: Fair Functional capacity at discharge: independent ambulation Overall status at discharge: patient is progressing back to baseline - Discharge Instructions Follow Up With: Nabil Hodge MD [Primary Care Provider] - 08/17/18 1:30 pm () - Diet and Activity Activity: increase activity as tolerated Diet: diabetic diet
[2018-08-11 08:56] VITALS: BP 153/90
[2018-08-11] MEDS: Lisinopril 20 MG TABLET PO SCH (09:07)
[2018-08-11] MEDS: BuPROPion SR (12 HR) 150 MG TABLET PO SCH (09:07)
[2018-08-11] MEDS: amLODIPine 5 MG TABLET PO SCH (09:08)
[2018-08-11] MEDS: *HR* HYDROcodone/Acet 5/325 mg TABLET PO PRN ×2 (09:08→13:44)
[2018-08-11] MEDS: cefTRIAXone 2,000 MG in Water for inj. (sterile) 20 ML 20 ML IVP SCH (09:08)
[2018-08-11] MEDS: Gabapentin 300 MG CAPSULE PO SCH (09:08)
--- NOTE | 2018-08-11 11:51 | Physician Discharge Referral ---
Home Health/Hosp Referral Info Transfer to: Home Health Provider in Charge Post Discharge: PCP - Diagnosis (1) Sepsis Priority: Secondary Status: Acute (2) Community acquired pneumonia Priority: Primary Status: Acute (3) Acute respiratory failure Priority: Secondary Status: Acute (4) Acute encephalopathy Priority: Secondary Status: Resolved (5) COPD (chronic obstructive pulmonary disease) Priority: Secondary Status: Chronic (6) Hypokalemia Priority: Secondary Status: Acute (7) Hypertension Priority: Secondary Status: Chronic (8) Elevated troponin Priority: Secondary Status: Resolved - Respiratory Orders Smoking Cessation: Smoking cessation has been advised. For more information, call the [place] Tobacco Quit Line at 6-111-MZFG-NOW. - Services Needed Following services are medically necessary services: Nursing, Home Health Aide, Physical Therapy - Transfer Medications Prescriptions: Cefdinir [Omnicef] 300 mg PO BID #6 capsule Home Medications: Alendronate Sodium [Fosamax] 70 mg PO TU 11/30/16 [History] BuPROPion SR (12 HR) [Wellbutrin SR] 150 mg PO BID 11/30/16 [History] Furosemide [Lasix] 20 mg PO DAILY 11/30/16 [History] Gabapentin [Neurontin] 300 mg PO [facility] 11/30/16 [History] Montelukast [Singulair] 10 mg PO HS 11/30/16 [History] PARoxetine HCl [Paroxetine HCl] 40 mg PO HS 11/30/16 [History] Simvastatin [Zocor] 20 mg PO HS 11/30/16 [History] Cholecalciferol (Vitamin D3) [Vitamin D3] 4,000 unit PO DAILY 04/19/18 [History] Gabapentin [Neurontin] 600 mg PO HS 04/19/18 [History] Metoprolol Tartrate [Lopressor] 100 mg PO BID 04/19/18 [History] Multivit-Min/FA/Lycopen/Lutein [Centrum Silver Men Tablet] 1 tab PO DAILY 04/19/18 [History] Albuterol Sulfate [Albuterol Inhaler] 2 puff IH Q4H PRN 04/20/18 [History] Hydrocodone/Acetaminophen [[place] 5-325 Tablet] 1 - 2 tab PO Q6H PRN 04/20/18 [History] Budesonide/Formoterol 160/4.5 [Symbicort 160/4.5] 2 puff IH BIDR 05/14/19 [History] Lisinopril [Zestril] 40 mg PO DAILY 08/08/18 [History] Melatonin 10 mg PO HS 08/08/18 [History] amLODIPine [Norvasc] 5 mg PO DAILY 08/08/18 [History] Cefdinir [Omnicef] 300 mg PO BID #6 capsule 08/11/18 [Rx] Allergies/Adverse Reactions: Allergy/AdvReac Type Severity Reaction Status Date / Time aspirin [ASA] AdvReac See Verified 02/04/18 12:10 Comments tramadol AdvReac See Verified 02/04/18 12:10 Comments Certification: Further, I certify that my clinical findings support that this patient is homebound (i.e. absences from home require considerable and taxing effort and are for medical reasons or [employer] services or infrequently or short duration when for other reasons) because: Homebound Reason: Patient requires assistance of a person or device to safely leave home Attestation: My signature below is to certify that this patient is under my care and that I, or nurse practitioner, or a physician's tax accounting assistant working with me, has a [id number] encounter with this patient.
--- NOTE | 2018-08-11 18:31 | Discharge Summary ---
- NOTES TO OUTPATIENT PROVIDER Notes to Outpatient Provider: Large R-sided pneumonia improved w abx, does need interval CXR or Chest CT to ensure improvement and eval for underlying lesion Date of Encounter: 08/11/18 Time of Encounter: 10:30 Hospital course: Dear Doctors, I recently had the opportunity to care for this patient during their recent hospital stay at [facility]. Tejal Solis is a 77 F w hx COPD, HFpEF, HTN, HLD, OA, who presented at time of admission with confusion, subjective fevers, and mild cough with chest congestion. In the ED, pt w HR 110s, T102, hypoxic requiring 4L to sat 93%. Labs remarkable for WBC 35, CXR showing consolidation of entire R lung. Pt admitted for pneumonia causing sepsis and hypoxic respiratory failure. Trop incidentally elevated to 0.04. In the hospital, pt given Rocephin and azithromycin with improvement in symptoms. Vitals normalized, O2 weaned, confusion resolved, and trops downtrended. Pt switched to Omnicef and will complete 7d course of abx. 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 Please contact me with any questions or concerns regarding their hospital stay. Sincerely, Clay Holman MD - Discharge Medications Prescriptions: New Cefdinir [Omnicef] 300 mg PO BID #6 capsule Continued Furosemide [Lasix] 20 mg PO DAILY Simvastatin [Zocor] 20 mg PO HS Montelukast [Singulair] 10 mg PO HS Alendronate Sodium [Fosamax] 70 mg PO TU Gabapentin [Neurontin] 300 mg PO QAM PARoxetine HCl [Paroxetine HCl] 40 mg PO HS BuPROPion SR (12 HR) [Wellbutrin SR] 150 mg PO BID Multivit-Min/FA/Lycopen/Lutein [Centrum Silver Men Tablet] 1 tab PO DAILY Cholecalciferol (Vitamin D3) [Vitamin D3] 4,000 unit PO DAILY Gabapentin [Neurontin] 600 mg PO HS Metoprolol Tartrate [Lopressor] 100 mg PO BID Albuterol Sulfate [Albuterol Inhaler] 2 puff IH Q4H PRN PRN Reason: Shortness Of Breath/Wheezing Hydrocodone/Acetaminophen [[place] 5-325 Tablet] 1 - 2 tab PO Q6H PRN PRN Reason: Mild To Moderate Pain Lisinopril [Zestril] 40 mg PO DAILY Melatonin 10 mg PO HS amLODIPine [Norvasc] 5 mg PO DAILY Budesonide/Formoterol 160/4.5 [Symbicort 160/4.5] 2 puff IH BIDR Home Medications: Alendronate Sodium [Fosamax] 70 mg PO TU 11/30/16 [History] BuPROPion SR (12 HR) [Wellbutrin SR] 150 mg PO BID 11/30/16 [History] Furosemide [Lasix] 20 mg PO DAILY 11/30/16 [History] Gabapentin [Neurontin] 300 mg PO [facility] 11/30/16 [History] Montelukast [Singulair] 10 mg PO HS 11/30/16 [History] PARoxetine HCl [Paroxetine HCl] 40 mg PO HS 11/30/16 [History] Simvastatin [Zocor] 20 mg PO HS 11/30/16 [History] Cholecalciferol (Vitamin D3) [Vitamin D3] 4,000 unit PO DAILY 04/19/18 [History] Gabapentin [Neurontin] 600 mg PO HS 04/19/18 [History] Metoprolol Tartrate [Lopressor] 100 mg PO BID 04/19/18 [History] Multivit-Min/FA/Lycopen/Lutein [Centrum Silver Men Tablet] 1 tab PO DAILY 04/19/18 [History] Albuterol Sulfate [Albuterol Inhaler] 2 puff IH Q4H PRN 04/20/18 [History] Hydrocodone/Acetaminophen [[place] 5-325 Tablet] 1 - 2 tab PO Q6H PRN 04/20/18 [History] Budesonide/Formoterol 160/4.5 [Symbicort 160/4.5] 2 puff IH BIDR 08/08/18 [History] Lisinopril [Zestril] 40 mg PO DAILY 08/08/18 [History] Melatonin 10 mg PO HS 08/08/18 [History] amLODIPine [Norvasc] 5 mg PO DAILY 08/08/18 [History] Cefdinir [Omnicef] 300 mg PO BID #6 capsule 08/11/18 [Rx] Allergies/Adverse Reactions: Allergy/AdvReac Type Severity Reaction Status Date / Time aspirin [ASA] AdvReac See Verified 02/04/18 12:10 Comments tramadol AdvReac See Verified 02/04/18 12:10 Comments Date of admission: 08/09/18 04:32 Primary care physician: Nabil Hodge MD Consults: 08/08/18 22:27 Consult to Pastoral Services [CONS] Routine Comment: 08/08/18 22:52 Consult to Physical Therapy [CONS] Routine Comment: Evaluate, develop and implement POC Reason for Consult: ptot eval Does patient have active BEDREST order?: No Is patient medically & hemodynamically stable?: Yes Patient assessed for mobility or mobilized this visit?: No 08/09/18 05:31 Consult to Cardiology [CONS] Routine Comment: Consulting Provider: Cardiology Janet Reason for Consult: increasing troponin 0.15 ---> 0.21, here for PNA/AMS, on heparin drip, echo pending Call Completed: No 08/11/18 08:26 Consult to Nurse Navigator [CONS] Routine Comment: PNEUMONIA, COPD - Constitutional Vitals: Temp Pulse Resp BP Pulse Ox 98.1 F 88 17 153/90 92 08/11/18 08:54 08/11/18 08:54 08/11/18 08:54 08/11/18 08:54 08/11/18 08:54 Exam: General: NAD, good eye contact, well appearing, elderly Thoracic: decent aeration improved on R from admission, does still have some egophony R lung but no wheezing or crackles Cardio: Normal S1 and S2, regular rate and rhythm Abdomen: Soft, nontender Extremities: Warm, well perfused. DP pulses 2+ b/l. No edema. Neuro: Awake, fully oriented. Speech fluent. Able to ambulate. - Patient Status Disposition: Home, Self-Care Condition: Fair Functional capacity at discharge: independent ambulation Overall status at discharge: patient is progressing back to baseline - Discharge Instructions Instructions: Cefdinir (By mouth), Pneumonia (DC), Fall Prevention for the Older Adult, Wire Inspector (GEN) Follow Up With: Nabil Hodge MD [Primary Care Provider] - 08/17/18 1:30 pm () Additional Instructions: Follow-up appointments: If there is not an appointment listed below, please call your physician and schedule a follow-up appointment. If you have congestive heart failure and your symptoms return, make an appointment with your physician. Medication List: Carry an up to date list of medications you are taking at all time. We have given you an updated medication list including any new medications that you have been prescribed. Please provide that list to your primary provider Symptoms: If your condition changes or you experience any of the following s ymptoms, notify your physician immediately: Unusual or worsening pain, fever, persistent nausea and vomiting, bleeding, increase in swelling (especially in your legs), sudden weight gain, extreme dizziness, chest pain, increased drainage or redness from a wound or incision. Go to the emergency department if you experience a problem with breathing. Weights: If you have a history of swelling or shortness of breath, weigh yourself daily and notify your physician if you have a weight gain of two or more pounds in one day or 5 or more pounds in a week. If you experience any of the warning signs for stroke: Sudden numbness or weakness of the face, arm or leg; especially on one side of the body, sudden confusion, trouble speaking or understanding, sudden trouble seeing in one or both eyes, sudden trouble walking, dizziness, loss of balance or coordination, sudden sever headache with no cause; Call 911 or go to the emergency room. Stroke is a medical emergency. Some risk factors for stroke: Age, cigarette smoking, diabetes, excessive alcohol consumption, family history, high blood pressure, overweight, physical inactivity, prior stroke, heart attack, diagnosis of carotid artery stenosis or other artery disease. If you smoke, STOP: Smoking or tobacco use significantly increases your risk of heart and lung disease. Your chance of disease greatly increases if you continue to smoke. For more information, call the [place] tobacco quit line for smoking cessation 0-039-ZEWZ-NOW ( ) - Diet and Activity Activity: resume usual activities as tolerated Diet: advance to your usual diet
== END 2018-08-11 14:25 | disposition home or self-care (01) | DRG 871 ==
LOC: EMEROOARM 17:24 → 2SOUTHHOLD 17:24 → SUATTDRO 21:14 → 2SOUTHHOLD 22:02 → 3BNU 08-09 11:56
PROVIDERS: ADMIT Pediatrics; ATTEND Internal Medicine

== ENCOUNTER 2018-10-26 10:15 | Inpatient (IN) ==
[2018-10-26] MEDS ORDERED: Ethanol\\Acetic Acid\\Na Ace\\Ben 1,000 ML IRRIG.SOLN IR ONE (10:23)
[2018-10-26] MEDS ORDERED: Ropivacaine/PF 0.5% 30 ML VIAL ONE (10:38)
[2018-10-26] MEDS ORDERED: ROPIVACAINE/PF/NS 0.25% 1 EACH SYRINGE INTRAART ONE ×2 (10:38→11:10)
[2018-10-26] MEDS ORDERED: *HR* PHENYLEPHRINE 1,000 MCG/10 ML SYRINGE IVP ONE (10:43)
[2018-10-26 10:47] LABS: Hematocrit 41.2 % (35.3-44.9); Hemoglobin 12.1 g/dL (11.5-15.4)
[2018-10-26] MEDS ORDERED: EPHEDrine 50 MG/ML VIAL ONE (10:47)
[2018-10-26] MEDS ORDERED: Ondansetron 4 MG/2 ML VIAL ONE (10:48)
[2018-10-26] MEDS ORDERED: Lidocaine -MPF 2% 2 ML VIAL ONE (10:49)
[2018-10-26] MEDS ORDERED: Lidocaine -MPF 4% 5 ML AMPUL ONE (10:49)
[2018-10-26] MEDS ORDERED: *HR* FentaNYL (PF) 100 MCG/2 ML VIAL ONE (10:50)
[2018-10-26] MEDS ORDERED: *HR* Propofol 200 MG/20 ML VIAL IVP ONE ×2 (10:50→10:51)
[2018-10-26] MEDS ORDERED: *HR* Midazolam HCl 2 MG/2 ML VIAL ONE (10:50)
[2018-10-26] MEDS ORDERED: *HR* Succinylcholine 200 MG/10 ML VIAL IVP ONE (10:51)
[2018-10-26 11:08] LABS: Calcium 10.3 mg/dL (8.6-10.3); Potassium 5.3 mEq/L (3.5-5.1)
[2018-10-26] MEDS ORDERED: CeFAZolin Syr 2,000MG/20 ML 2,000 MG/20 ML SYRINGE IVPB ONE (11:21)
[2018-10-26] MEDS ORDERED: Albuterol 2.5 MG/3 ML NEBULIZER IH ONE (11:21)
[2018-10-26] MEDS ORDERED: Ringers Solution, Lactated 1,000 ML IVC SCH ×2 (11:30→14:40)
[2018-10-26] MEDS ORDERED: *HR* Phenylephrine 10 MG/ML VIAL ONE (12:41)
[2018-10-26] MEDS ORDERED: Ipratropium/Albuterol Neb 3 ML ONE (13:35)
[2018-10-26] MEDS ORDERED: Ipratropium/Albuterol Neb 3 ML IH ONE (13:52)
[2018-10-26] MEDS ORDERED: MOM Conc 10 ML UD.LIQ PO PRN (14:40)
[2018-10-26] MEDS ORDERED: Ondansetron 4 MG/2 ML VIAL IVP PRN (14:40)
[2018-10-26] MEDS ORDERED: Temazepam 15 MG CAPSULE PO PRN (14:40)
[2018-10-26] MEDS ORDERED: Sennosides 8.6 MG TABLET PO PRN (14:40)
[2018-10-26 16:17] LABS: Calcium 9.5 mg/dL (8.6-10.3); Potassium 4.8 mEq/L (3.5-5.1)
[2018-10-26] MEDS ORDERED: Melatonin 3 MG TABLET PO SCH (21:00)
[2018-10-26] MEDS ORDERED: PARoxetine 20 MG TABLET PO SCH (21:00)
[2018-10-26] MEDS ORDERED: Gabapentin 300 MG CAPSULE PO SCH (21:00)
[2018-10-26] MEDS: BuPROPion SR (12 HR) 150 MG TABLET PO SCH (21:51)
[2018-10-26] MEDS: Metoprolol 100 MG TABLET PO SCH (21:52)
[2018-10-26] MEDS: amLODIPine 5 MG TABLET PO SCH (21:52)
[2018-10-26] MEDS: Budesonide/Formoterol 160/4.5 1 PUFF INH IH SCH (22:07)
[2018-10-26] MEDS: *HR* OxyCODONE/APAP 5/325 TABLET PO PRN (22:15)
[2018-10-27] MEDS: *HR* OxyCODONE/APAP 5/325 TABLET PO PRN (03:33)
[2018-10-27 05:23] LABS: Hematocrit 34.1 % (35.3-44.9)
[2018-10-27 05:24] LABS: Hemoglobin 10.2 g/dL (11.5-15.4)
[2018-10-27 05:43] LABS: BUN/Creatinine Ratio 20 (6-26); Blood Urea Nitrogen 21 mg/dL (8-23); Calcium 9.7 mg/dL (8.6-10.3); Carbon Dioxide 27 mEq/L (23-29); Chloride 105 mEq/L (98-107); Glucose 157 mg/dL (70-105); Osmolality,Calculated 290 (280-300); Sodium 137 mEq/L (136-145); eGFR For African Americans > 60 (> 60); eGFR For Non-African Americans 50 (> 60)
[2018-10-27] MEDS: Budesonide/Formoterol 160/4.5 1 PUFF INH IH SCH (07:46)
[2018-10-27] MEDS: Metoprolol 100 MG TABLET PO SCH (08:51)
[2018-10-27] MEDS: amLODIPine 5 MG TABLET PO SCH (08:51)
[2018-10-27] MEDS ORDERED: NON-FORMULARY MEDICATION 1 EACH EACH (Lisinopril [Zestril] 40 MG) PO SCH (09:00)
[2018-10-27] MEDS ORDERED: Cholecalciferol (D-3) 1,000 UNIT (25MCG) TABLET PO SCH (09:00)
[2018-10-27] MEDS ORDERED: Furosemide 20 MG TABLET PO SCH (09:00)
[2018-10-27] MEDS ORDERED: Gabapentin 300 MG CAPSULE PO SCH (09:00)
[2018-10-27] MEDS ORDERED: Multivit/Ca/Min/Fe/FA 1 TAB TABLET PO SCH (09:00)
[2018-10-27] MEDS: *HR* OxyCODONE Immed Rel 5 MG TABLET PO PRN ×2 (09:39→14:00)
[2018-10-27] MEDS: BuPROPion SR (12 HR) 150 MG TABLET PO SCH (09:39)
[2018-10-27 11:38] VITALS: BP 118/75
[2018-10-31] MEDS ORDERED: NON-FORMULARY MEDICATION 1 EACH EACH (Alendronate Sodium [Fosamax] 70 MG) PO SCH (11:55)
== END 2018-10-27 15:00 | disposition home health service (06) | DRG 483 ==
LOC: SAMDAY 10:15 → 3NENU 14:39
PROVIDERS: ADMIT Orthopaedic Surgery; ATTEND Orthopaedic Surgery

== ENCOUNTER 2019-11-24 16:42 | Inpatient (IN) ==
[2019-11-24] MEDS ORDERED: Ipratropium/Albuterol Neb 3 ML IH ONE (17:10)
[2019-11-24] MEDS ORDERED: Dexamethasone 4 MG/ML VIAL IVP ONE (17:10)
[2019-11-24 17:31] LABS: VBG HCO3 33 mEq/L (21-27); VBG PCO2 56 mmHg (41-51); VBG PH 7.38 pH Units (7.32-7.42); VBG PO2 69 mmHg (25-50)
[2019-11-24 17:32] LABS: Basophils % 0.3 %; Eosinophils # 0.1 K/mcL (0.0-0.6); Eosinophils % 1.4 %; Hematocrit 39.5 % (35.3-44.9); Hemoglobin 12.1 g/dL (11.5-15.4); Immature Granulocytes % 0.3 % (0-4); Lymphocytes # 1.3 K/mcL (0.6-4.6); Lymphocytes % 14.1 %; Mean Corpuscular HGB Conc 30.6 g/dL (31.6-35.5); Mean Corpuscular Hemoglobin 28.8 pg (28.0-33.3); Mean Platelet Volume 11.8 fL (9.4-12.4); Monocytes # 0.8 K/mcL (0.0-1.3); Monocytes % 8.7 %; Platelet Count 204 K/mcL (140-400); Red Cell Distribution Width 13.5 % (11.5-14.5); Segmented Neutrophils % 75.2 %; White Blood Count 9.3 K/mcL (4.3-11.1)
[2019-11-24 17:50] LABS: BUN/Creatinine Ratio 13 (6-26); Blood Urea Nitrogen 14 mg/dL (8-23); Calcium 9.6 mg/dL (8.6-10.3); Carbon Dioxide 30 mEq/L (23-29); Chloride 100 mEq/L (98-107); Glucose 116 mg/dL (70-105); Osmolality,Calculated 289 (280-300); Potassium 3.5 mEq/L (3.5-5.1); Sodium 139 mEq/L (136-145); eGFR For African Americans > 60 (> 60); eGFR For Non-African Americans 51 (> 60)
[2019-11-24 17:51] LABS: Troponin I < 0.03 ng/mL (< 0.04)
[2019-11-24 18:37] LABS: Adenovirus Not Detected (Not Detect); Bordetella Pertussis Not Detected (Not Detect); Chlamydophila pneumoniae Not Detected (Not Detect); Coronavirus 229E Not Detected (Not Detect); Coronavirus HKU1 Not Detected (Not Detect); Coronavirus NL63 Not Detected (Not Detect); Coronavirus OC43 Not Detected (Not Detect); Human Metapneumovirus Not Detected (Not Detect); Human Rhinovirus/Enterovirus Not Detected (Not Detect); Influenza A Subtype 2009 H1 Not Detected (Not Detect); Influenza B Not Detected (Not Detect); Mycoplasma pneumoniae Not Detected (Not Detect); Parainfluenza Virus 1 Not Detected (Not Detect); Parainfluenza Virus 2 Not Detected (Not Detect); Parainfluenza Virus 3 Not Detected (Not Detect); Parainfluenza Virus 4 Not Detected (Not Detect); Respiratory Syncytial Virus Not Detected (Not Detect)
[2019-11-24] MEDS ORDERED: Azithromycin 250 MG TABLET PO STA (18:52)
[2019-11-24] MEDS ORDERED: Ondansetron 4 MG/2 ML VIAL IVP PRN (19:33)
[2019-11-24] MEDS ORDERED: Naloxone 0.4 MG/ML INJ IVP PRN (19:33)
[2019-11-24] MEDS ORDERED: Ipratropium/Albuterol Neb 3 ML IH PRN (19:42)
[2019-11-24] MEDS: Ipratropium/Albuterol Neb 3 ML IH SCH ×2 (20:27→23:23)
[2019-11-24] MEDS: Melatonin 3 MG TABLET PO SCH (22:28)
[2019-11-24] MEDS: *HR* OxyCODONE/APAP 5/325 TABLET PO PRN (22:29)
[2019-11-24] MEDS: PARoxetine 20 MG TABLET PO SCH (22:29)
[2019-11-24] MEDS: Metoprolol 100 MG TABLET PO SCH (22:29)
[2019-11-25 04:06] LABS: Basophils % 0.1 %; Hematocrit 38.1 % (35.3-44.9); Hemoglobin 11.8 g/dL (11.5-15.4); Immature Granulocytes % 0.4 % (0-4); Lymphocytes # 0.4 K/mcL (0.6-4.6); Lymphocytes % 4.4 %; Mean Corpuscular Hemoglobin 29.6 pg (28.0-33.3); Mean Corpuscular Volume 95.7 fL (83.0-100.0); Mean Platelet Volume 12.3 fL (9.4-12.4); Monocytes # 0.2 K/mcL (0.0-1.3); Monocytes % 1.8 %; Neutrophils # 9.2 K/mcL (1.6-8.9); Platelet Count 188 K/mcL (140-400); Red Blood Count 3.98 M/mcL (3.82-4.97); Red Cell Distribution Width 13.3 % (11.5-14.5); Segmented Neutrophils % 93.3 %; White Blood Count 9.9 K/mcL (4.3-11.1)
[2019-11-25 04:09] LABS: Prothrombin Time 11.9 Seconds (9.4-12.1)
[2019-11-25 04:25] LABS: BUN/Creatinine Ratio 20 (6-26); Blood Urea Nitrogen 18 mg/dL (8-23); Calcium 9.6 mg/dL (8.6-10.3); Carbon Dioxide 30 mEq/L (23-29); Chloride 100 mEq/L (98-107); Glucose 197 mg/dL (70-105); Magnesium 1.7 mg/dL (1.6-2.6); Osmolality,Calculated 295 (280-300); Phosphorous 2.2 mg/dL (2.7-4.5); Potassium 3.7 mEq/L (3.5-5.1); Sodium 139 mEq/L (136-145); eGFR For African Americans > 60 (> 60); eGFR For Non-African Americans 59 (> 60)
[2019-11-25] MEDS: Ipratropium/Albuterol Neb 3 ML IH SCH ×6 (04:28→23:36)
[2019-11-25] MEDS: *HR* Enoxaparin 40 MG/0.4 ML SYRINGE SQ SCH (05:27)
[2019-11-25] MEDS: Metoprolol 100 MG TABLET PO SCH ×2 (07:38→21:50)
[2019-11-25] MEDS: predniSONE 20 MG TABLET PO SCH (07:38)
[2019-11-25] MEDS: Gabapentin 300 MG CAPSULE PO SCH (07:38)
[2019-11-25] MEDS: lisinopriL 20 MG TABLET PO SCH (07:38)
[2019-11-25] MEDS: BuPROPion SR (12 HR) 150 MG TABLET PO SCH ×2 (07:38→21:44)
[2019-11-25] MEDS: amLODIPine 5 MG TABLET PO SCH ×2 (07:38→21:54)
[2019-11-25] MEDS: Cholecalciferol (D-3) 1,000 UNIT (25MCG) TABLET PO SCH (07:38)
[2019-11-25] MEDS: Multivit/Ca/Min/Fe/FA 1 TAB TABLET PO SCH (07:38)
[2019-11-25] MEDS: Furosemide 20 MG TABLET PO SCH (07:38)
[2019-11-25] MEDS: *HR* OxyCODONE/APAP 5/325 TABLET PO PRN ×2 (07:42→19:19)
[2019-11-25] MEDS: Budesonide/Formoterol 160/4.5 1 PUFF INH IH SCH ×2 (08:04→20:17)
[2019-11-25] MEDS ORDERED: Azithromycin 500 MG in 0.9 % Sodium Chloride 250 ML IVPB SCH (21:00)
[2019-11-25] MEDS ORDERED: Gabapentin 300 MG CAPSULE PO SCH (21:00)
[2019-11-25] MEDS: Melatonin 3 MG TABLET PO SCH (21:50)
[2019-11-25] MEDS: PARoxetine 20 MG TABLET PO SCH (21:50)
[2019-11-26] MEDS: Ipratropium/Albuterol Neb 3 ML IH SCH ×2 (04:19→07:27)
[2019-11-26 04:27] LABS: Hematocrit 34.9 % (35.3-44.9); Hemoglobin 10.7 g/dL (11.5-15.4); Mean Corpuscular HGB Conc 30.7 g/dL (31.6-35.5); Mean Corpuscular Hemoglobin 29.4 pg (28.0-33.3); Mean Corpuscular Volume 95.9 fL (83.0-100.0); Mean Platelet Volume 11.6 fL (9.4-12.4); Platelet Count 189 K/mcL (140-400); Red Blood Count 3.64 M/mcL (3.82-4.97); Red Cell Distribution Width 13.6 % (11.5-14.5)
[2019-11-26 04:28] LABS: White Blood Count 15.4 K/mcL (4.3-11.1)
[2019-11-26 04:42] LABS: BUN/Creatinine Ratio 22 (6-26); Blood Urea Nitrogen 20 mg/dL (8-23); Calcium 9.6 mg/dL (8.6-10.3); Carbon Dioxide 31 mEq/L (23-29); Chloride 103 mEq/L (98-107); Glucose 108 mg/dL (70-105); Osmolality,Calculated 293 (280-300); Potassium 3.4 mEq/L (3.5-5.1); Sodium 140 mEq/L (136-145); eGFR For African Americans > 60 (> 60); eGFR For Non-African Americans 58 (> 60)
[2019-11-26] MEDS: *HR* Enoxaparin 40 MG/0.4 ML SYRINGE SQ SCH (05:01)
[2019-11-26] MEDS: *HR* OxyCODONE/APAP 5/325 TABLET PO PRN (05:01)
[2019-11-26] MEDS: Budesonide/Formoterol 160/4.5 1 PUFF INH IH SCH (07:27)
[2019-11-26 08:05] VITALS: BP 152/76
[2019-11-26] MEDS: amLODIPine 5 MG TABLET PO SCH (08:53)
[2019-11-26] MEDS: Multivit/Ca/Min/Fe/FA 1 TAB TABLET PO SCH (08:53)
[2019-11-26] MEDS: Metoprolol 100 MG TABLET PO SCH (08:53)
[2019-11-26] MEDS: BuPROPion SR (12 HR) 150 MG TABLET PO SCH (08:53)
[2019-11-26] MEDS: predniSONE 20 MG TABLET PO SCH (08:54)
[2019-11-26] MEDS: Gabapentin 300 MG CAPSULE PO SCH (08:54)
[2019-11-26] MEDS: Furosemide 20 MG TABLET PO SCH (08:54)
[2019-11-26] MEDS: Cholecalciferol (D-3) 1,000 UNIT (25MCG) TABLET PO SCH (08:54)
[2019-11-26] MEDS: lisinopriL 20 MG TABLET PO SCH (08:54)
== END 2019-11-26 12:54 | disposition home or self-care (01) | DRG 190 ==
LOC: 3BNU 16:42 → EMEROOARM 16:42 → SUATTDRO 19:17 → 3BNU 19:44
PROVIDERS: ADMIT Family Medicine; ATTEND Nurse Practitioner Adult Health

== ENCOUNTER 2021-10-22 10:28 | Observation (INO) ==
[2021-10-22 11:04] LABS: Basophils # 0.1 K/mcL (0.0-0.2); Basophils % 1.1 %; Eosinophils # 0.2 K/mcL (0.0-0.6); Eosinophils % 3.5 %; Hematocrit 36.3 % (35.3-44.9); Hemoglobin 12.1 g/dL (11.5-15.4); Immature Granulocytes % 0.4 % (0-4); Lymphocytes # 1.7 K/mcL (0.6-4.6); Lymphocytes % 30.2 %; Mean Corpuscular HGB Conc 33.3 g/dL (31.6-35.5); Mean Corpuscular Volume 93.1 fL (83.0-100.0); Mean Platelet Volume 12.5 fL (9.4-12.4); Monocytes # 0.7 K/mcL (0.0-1.3); Monocytes % 11.8 %; Platelet Count 150 K/mcL (140-400); Red Cell Distribution Width 14.3 % (11.5-14.5); White Blood Count 5.7 K/mcL (4.3-11.1)
[2021-10-22] MEDS ORDERED: Fat Emulsions 20% 250 ML IVP ONE (11:15)
[2021-10-22] MEDS ORDERED: Fat Emulsion 250 ML IVPB ONE (12:15)
[2021-10-22 12:16] LABS: Alanine Aminotransferase 16 Units/L (7-52); Albumin 3.9 g/dL (3.5-5.7); Albumin/Globulin Ratio 1.8 (1.1-2.2); Alkaline Phosphatase 79 Units/L (34-104); Aspartate Amino Transferase 23 Units/L (13-39); BUN/Creatinine Ratio 18 (6-26); Bilirubin,Direct 0.1 mg/dL (0.0-0.2); Bilirubin,Indirect 0.5 mg/dL (0.0-1.0); Bilirubin,Total 0.6 mg/dL (0.3-1.0); Blood Urea Nitrogen 19 mg/dL (8-23); Calcium 9.2 mg/dL (8.6-10.3); Carbon Dioxide 30 mEq/L (23-29); Chloride 103 mEq/L (98-107); Ethanol < 10 mg/dL (Less than 10); Globulin 2.2 g/dL (2.4-3.5); Glucose 68 mg/dL (70-105); Osmolality,Calculated 289 (280-300); Potassium 3.7 mEq/L (3.5-5.1); Sodium 139 mEq/L (136-145); Total Protein 6.1 g/dL (6.4-8.9); Troponin I < 0.03 ng/mL (< 0.04); eGFR For African Americans > 60 (> 60); eGFR For Non-African Americans 50 (> 60)
[2021-10-22 12:23] LABS: INR 1.1
[2021-10-22 12:57] LABS: Activated Partial Thrombo Time 34.1 Seconds (26.0-36.0)
[2021-10-22 13:03] LABS: Prothrombin Time 12.3 Seconds (9.4-12.1)
[2021-10-22] MEDS ORDERED: Naloxone 0.4 MG/ML INJ IVP PRN (14:38)
[2021-10-22] MEDS ORDERED: Ondansetron 4 MG/2 ML VIAL IVP PRN (14:38)
[2021-10-22] MEDS ORDERED: *HR* LORazepam 2 MG/ML VIAL IVP PRN (15:02)
[2021-10-22] MEDS: Ipratropium/Albuterol Neb 3 ML IH SCH ×2 (16:00→21:31)
[2021-10-22] MEDS: *HR* Heparin 5,000 UNIT/ML VIAL SQ SCH (18:54)
[2021-10-22 20:19] LABS: Magnesium 1.9 mg/dL (1.6-2.6)
[2021-10-22 20:27] LABS: Troponin I < 0.03 ng/mL (< 0.04)
[2021-10-22] MEDS: Metoprolol 100 MG TABLET PO SCH (20:29)
[2021-10-22] MEDS: Gabapentin 300 MG CAPSULE PO SCH (20:30)
[2021-10-22] MEDS ORDERED: PARoxetine 20 MG TABLET PO SCH (21:00)
[2021-10-22] MEDS ORDERED: QUEtiapine Fumarate 25 MG TABLET PO SCH (21:00)
[2021-10-22] MEDS: Budesonide/Formoterol 160/4.5 1 PUFF INH IH SCH (21:34)
[2021-10-22 22:15] VITALS: O2SAT 94
[2021-10-23] MEDS: Ipratropium/Albuterol Neb 3 ML IH SCH ×2 (03:59→09:19)
[2021-10-23 04:08] LABS: Basophils # 0.1 K/mcL (0.0-0.2); Basophils % 0.7 %; Eosinophils # 0.1 K/mcL (0.0-0.6); Eosinophils % 1.8 %; Hematocrit 42.3 % (35.3-44.9); Immature Granulocytes % 0.3 % (0-4); Lymphocytes # 1.3 K/mcL (0.6-4.6); Mean Corpuscular HGB Conc 30.7 g/dL (31.6-35.5); Mean Corpuscular Hemoglobin 28.4 pg (28.0-33.3); Mean Corpuscular Volume 92.4 fL (83.0-100.0); Mean Platelet Volume 13.1 fL (9.4-12.4); Monocytes # 0.6 K/mcL (0.0-1.3); Monocytes % 9.1 %; Neutrophils # 4.6 K/mcL (1.6-8.9); Platelet Count 169 K/mcL (140-400); Red Blood Count 4.58 M/mcL (3.82-4.97); Red Cell Distribution Width 14.2 % (11.5-14.5); Segmented Neutrophils % 69.1 %; White Blood Count 6.7 K/mcL (4.3-11.1)
[2021-10-23 04:28] LABS: Alanine Aminotransferase 15 Units/L (7-52); Albumin/Globulin Ratio 1.6 (1.1-2.2); Alkaline Phosphatase 84 Units/L (34-104); Aspartate Amino Transferase 21 Units/L (13-39); BUN/Creatinine Ratio 13 (6-26); Bilirubin,Total 0.6 mg/dL (0.3-1.0); Blood Urea Nitrogen 12 mg/dL (8-23); Calcium 9.9 mg/dL (8.6-10.3); Carbon Dioxide 31 mEq/L (23-29); Chloride 103 mEq/L (98-107); Globulin 2.5 g/dL (2.4-3.5); Glucose 92 mg/dL (70-105); Osmolality,Calculated 289 (280-300); Potassium 3.6 mEq/L (3.5-5.1); Sodium 140 mEq/L (136-145); Total Protein 6.5 g/dL (6.4-8.9); eGFR For African Americans > 60 (> 60); eGFR For Non-African Americans 60 (> 60)
[2021-10-23] MEDS: *HR* Heparin 5,000 UNIT/ML VIAL SQ SCH (05:18)
[2021-10-23 07:48] VITALS: PULSE 69; TEMP 97.6
[2021-10-23] MEDS: Gabapentin 300 MG CAPSULE PO SCH (08:00)
[2021-10-23] MEDS: Metoprolol 100 MG TABLET PO SCH (08:00)
[2021-10-23] MEDS ORDERED: *HR* HYDROcodone/Acet 5/325 mg TABLET PO PRN (09:00)
[2021-10-23] MEDS ORDERED: amLODIPine 5 MG TABLET PO SCH (09:00)
[2021-10-23] MEDS: Budesonide/Formoterol 160/4.5 1 PUFF INH IH SCH (09:19)
[2021-10-23 16:41] VITALS: BP 167/79
== END 2021-10-23 14:40 | disposition home or self-care (01) ==
LOC: EMEROOARM 10:28 → 3ANU 10:28 → 3NENU 16:00
PROVIDERS: ADMIT Family Medicine; ATTEND Family Medicine